=== PATIENT | male | born 1960 ===

== ENCOUNTER 2021-04-27 11:05 | Emergency (ER) | payer MEDICARE ==
--- NOTE | 2021-04-27 12:17 | Emergency Department Report ---
ED Shortness of Breath HPI - General Chief Complaint: Dyspnea/Respdistress Stated Complaint: SOB Time Seen by Provider: 04/27/21 11:36 Source: patient Mode of arrival: Ambulatory Limitations: Physical Limitation - History of Present Illness Initial Comments: 60 year old male with pmhx of CHF, Afib, Renal disease, CVA, CAD with stents, HTN, mild asthma and sleep apnea presents to ED with complaints of SOB. He states he has this SOB for "a while" but it was worse today. He is not on home O2. He states the SOB is he is at rest or on exertion. Nothing seems to make it worse or better. He reports "a little" cough and wheezing. He does not have albuterol MDI nor nebulizer at home. He denies any chest pain, abd pain, n/v, LE swelling or pain. He denies any fever or chills. He states he has been compliant with his lasix. He denies tobacco use. He denies hx PE/DVT or risk factors for PE or DVT. 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 He states that he currently does not have a PCP. MD Complaint: shortness of breath -: month(s) ED Review of Systems ROS: Stated complaint: SOB Other details as noted in HPI Comment: All other systems reviewed and negative Constitutional: denies: chills, fever Eyes: denies: eye pain, eye discharge, vision change ENT: denies: ear pain, throat pain, dental pain, hearing loss, epistaxis, congestion Respiratory: cough, shortness of breath, SOB with exertion, SOB at rest, wheezing Cardiovascular: denies: chest pain, palpitations, dyspnea on exertion Endocrine: no symptoms reported Gastrointestinal: denies: abdominal pain, nausea, diarrhea, constipation, hematemesis Genitourinary: denies: urgency, dysuria, frequency, hematuria, discharge, testicular pain, testicular mass Musculoskeletal: denies: back pain, joint swelling, arthralgia Skin: denies: rash, lesions, pruritus Neurological: denies: headache, weakness, numbness, paresthesias, confusion, abnormal gait, vertigo Psychiatric: denies: anxiety, depression, auditory hallucinations, visual hallucinations, homicidal thoughts, suicidal thoughts Hematological/Lymphatic: denies: easy bleeding, easy bruising, swollen glands ED Past Medical Hx - Social History Smoking Status: Never Smoker ED Physical Exam - General Limitations: Physical Limitation General appearance: alert, in no apparent distress - Head Head exam: Present: atraumatic, normocephalic, normal inspection - Eye Eye exam: Present: normal appearance, PERRL, EOMI Pupils: Present: normal accommodation - Neck Neck exam: Present: normal inspection. Absent: meningismus - Respiratory Respiratory exam: Present: normal lung sounds bilaterally. Absent: respiratory distress, wheezes, rales, rhonchi - Cardiovascular Cardiovascular Exam: Present: regular rate, normal rhythm, normal heart sounds - GI/Abdominal GI/Abdominal exam: Present: soft. Absent: distended, tenderness, guarding, rebound - Extremities Exam Extremities exam: Present: normal inspection, full ROM. Absent: tenderness, pedal edema, calf tenderness - Neurological Exam Neurological exam: Present: alert, oriented X3, CN II-XII intact, normal gait - Psychiatric Psychiatric exam: Present: normal affect, normal mood - Skin Skin exam: Present: intact ED Course Vital Signs 04/27/21 04/27/21 11:42 17:23 Temperature 97.9 F Pulse Rate 78 80 Respiratory 18 16 Rate Blood Pressure 168/99 Blood Pressure 168/97 [Right] O2 Sat by Pulse 98 98 Oximetry ED Medical Decision Making - Lab Data Result diagrams: 04/27/21 12:55 04/27/21 12:55 - EKG Data Rate: normal (72) No standard instances Rhythm: A.Fib - EKG Data Interpretation: nonspecific ST-T wave tonja - Radiology Data Radiology results: report reviewed Patient Name: LAURA SOTO Gender: Male Date of : 1960 Referring Provider: RAFAELA SAINI Organization: [facility] Accession Number: [id number] Requested Date: April 27, 2021 12:12 Report Status: Final Requested Procedure: 1 Procedure Description: XR chest routine 2V Modality: XR Findings Reporting MD: Saravanan Royal Dictation Time: April 27, 2021 11:38 Willow Worker: Not available Bowl Attendant Date: CHEST 2 VIEWS INDICATION: Dyspnea. COMPARISON: none FINDINGS: Support devices: None. Heart: Within normal limits. Lungs/pleura: No acute air space or interstitial disease. No pneumothorax. Additional findings: None. IMPRESSION: No acute findings. Signer Name: Saravanan Royal Jr, MD Signed: 04/27/2021 11:38 AM Workstation Name: [id number] - Medical Decision Making 60 year old male with pmhx of CHF, Afib, Renal disease, CVA, CAD with stents, HTN, mild asthma and sleep apnea presents to ED with complaints of SOB. He states he has this SOB for "a while" but it was worse today. He is not on home O2. He states the SOB is he is at rest or on exertion. Nothing seems to make it worse or better. He reports "a little" cough and wheezing. He does not have albuterol MDI nor nebulizer at home. He denies any chest pain, abd pain, n/v, LE swelling or pain. He denies any fever or chills. He states he has been compliant with his lasix. He denies tobacco use. He denies hx PE/DVT or risk factors for PE or DVT. 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 He states that he currently does not have a PCP. All labs reviewed--CBC unremarkable. CMP shows renal insufficiency with a creatinine of 4.5 and a BUN of 48, otherwise unremarkable. Troponin was normal. BNP 1073; EKG showed nonspecific T wave changes but No STEMI or significant dysrhythmias. His chest x-ray shows nothing acute. Patient currently resting comfortably. He is not in any respiratory distress. He has been observed talking on the phone in full sentences, and ambulating to the bathroom without difficulty. He is not toxic or ill-appearing. Changes on patient lab work likely chronic, his work-up today does not suggest acute CHF especially since his chest x-ray does not show volume overload or pleural effusion and he has no swelling on exam. Patient was ambulated in the ER and his O2 dropped to 94% but was maintained at 94% with a heart rate of 83. He did not express shortness of breath or appear to be short of breath while ambulating. His repeat vital signs are stable. Also do not suspect that this is related to PE as he has a PERC score of 0, unstable angina, dissection, or any other acute emergencies warranting admission at this time or any additional testing at this time. Case was discussed with Dr. Espino, he agrees with work-up, and agree that there is no indication for any additional testing or admission to the hospital at this time. On discharge patient admits that he has been taking his Lasix 80 mg because it made him urinate a lot and therefore encouraged that he restarts taking the Lasix. He will be given referral information to local PCP as he reported not have a PCP. Patient expressed understanding agree with plan. He understands to return to the ER if symptoms worsens in any way. 04/28/2021: Patient was discharged prior to UA results due to lab reporting equipment failure and results taking few hours. Reviewed UA, results concerning UTI, culture pending. Tried to call patient few times without success. Also called sister who was listed on his demographics that emergent contact without success. Will monitor urine culture and if positive try again to contact patient. Critical care attestation.: If time is entered above; I have spent that time in minutes in the direct care of this critically ill patient, excluding procedure time. ED Disposition Clinical Impression: Dyspnea, Chronic renal disease, CHF (congestive heart failure) Disposition: 01 HOME / SELF CARE / HOMELESS Is pt being admited?: No Does the pt Need Aspirin: No Condition: Stable Instructions: Shortness of Breath, Adult, [id number], Heart Failure, Self Care, Chronic Kidney Disease, Adult, [id number] Additional Instructions: Recommend that you continue your regular dose of your water pill daily. Continue wearing his CPAP at night. Follow-up with the primary care doctor listed on your discharge instructions. Return to the ER if your symptoms ch anges or worsens in any way. Referrals: MICHAEL CHUN MD [Staff Physician] - 3-5 Days Time of Disposition: 17:04
[2021-04-27 13:11] LABS: Basophils # (Auto) 0.1 K/mm3 (0.0-0.1); Eosinophils # (Auto) 0.2 K/mm3 (0.0-0.4); Eosinophils % (Auto) 2.2 % (0.0-4.3); Hematocrit 37.3 % (35.5-45.6); Hemoglobin 12.1 gm/dl (11.8-15.2); Lymphocytes # (Auto) 1.4 K/mm3 (1.2-5.4); Lymphocytes % (Auto) 18.7 % (13.4-35.0); Mean Corpuscular HGB Conc 32 % (32-34); Mean Corpuscular Volume 93 fl (84-94); Monocytes # (Auto) 0.7 K/mm3 (0.0-0.8); Monocytes % (Auto) 9.7 % (0.0-7.3); Platelet Count 193 K/mm3 (140-440); Red Blood Count 4.03 M/mm3 (3.65-5.03); Red Cell Distribution Width 17.5 % (13.2-15.2)
[2021-04-27 14:34] LABS: Albumin 3.8 g/dL (3.9-5); Calcium 8.1 mg/dL (8.4-10.2)
[2021-04-27 16:55] LABS: Color,Urine Yellow (Yellow)
[2021-04-27 16:56] LABS: Blood,Urine Negative (Negative); Protein,Urine >500 mg/dL (Negative)
[2021-04-27 17:01] LABS: Bacteria,Urine 1+ /HPF (Negative); Mucus,Urine FEW /HPF; RBC,Urine < 1.0 /HPF (0.0-6.0)
[2021-04-27 17:39] VITALS: BP 168/97
--- NOTE | 2021-04-27 23:52 | XRay Report ---
CHEST 2 VIEWS INDICATION: Dyspnea. COMPARISON: none FINDINGS: Support devices: None. Heart: Within normal limits. Lungs/pleura: No acute air space or interstitial disease. No pneumothorax. Additional findings: None. IMPRESSION: No acute findings. Signer Name: Saravanan Royal Jr, MD Signed: 04/27/2021 12:38 PM Workstation Name: [id number]
--- NOTE | 2021-04-28 14:03 | Electrocardiograph Report ---
[facility] Test Date: 2021-04-27 Test Time: 12:47:37 Pat Name: LAURA SOTO Department: Room: Gender: M [id number] Programmer: LISSET : 1960 Requested By: RAFAELA SAINI Order Number: [id number] Reading MD: Philipp Street Measurements Intervals [place] Rate: 72 P: [place]: QRS: 12 QRSD: 102 T: 224 QT: 422 QTc: 462 Interpretive Statements Atrial fibrillation Nonspecific T abnormalities, lateral leads No previous ECG available for comparison Electronically Signed On 04-28-2021 14:03:[address]
== END 2021-04-27 17:41 | disposition home or self-care (01) ==
LOC: ED 11:05
DX: R06.00 Dyspnea, unspecified (principal); N18.9 Chronic kidney disease, unspecified; I50.9 Heart failure, unspecified; I13.0 Hypertensive heart and chronic kidney disease with heart failure and stage 1 through stage 4 chronic kidney disease, or unspecified chronic kidney disease; Z86.73 Personal history of transient ischemic attack (TIA), and cerebral infarction without residual deficits; I25.10 Atherosclerotic heart disease of native coronary artery without angina pectoris; Z79.899 Other long term (current) drug therapy
CPT/HCPCS: 36415; 71046; 80053; 81001; 83735; 83880; 84484; 85025; 87086; 93005; 93010; 99284

== ENCOUNTER 2021-08-18 11:12 | Inpatient (IN) | payer MEDICARE, OTHER ==
[2021-08-18] MEDS ORDERED: ASPIRIN 325 MG TAB PO ONE (11:26)
--- NOTE | 2021-08-18 12:13 | XRay Report ---
CHEST 2 VIEWS INDICATION: SOB. COMPARISON: 04/27/2021 FINDINGS: Support devices: None. Heart: Stable. Lungs/Pleura: No acute air space or interstitial disease. No significant pleural effusion. IMPRESSION: No acute findings. Signer Name: Trevon Rubio MD Signed: 08/18/2021 12:09 PM Workstation Name: [id number]
[2021-08-18 12:21] LABS: Hematocrit 36.7 % (35.5-45.6); Hemoglobin 12.6 gm/dl (11.8-15.2); Mean Corpuscular HGB Conc 34 % (32-34); Mean Corpuscular Volume 95 fl (84-94); Platelet Count 202 K/mm3 (140-440); Red Blood Count 3.85 M/mm3 (3.65-5.03); Red Cell Distribution Width 15.1 % (13.2-15.2)
--- NOTE | 2021-08-18 12:37 | Electrocardiograph Report ---
[facility] Test Date: 2021-08-18 Test Time: 11:41:24 Pat Name: LAURA SOTO Department: Room: Gender: M Weigh Boss: FUNMILAYO : 1960 Requested By: ED DOC Order Number: [id number] Reading MD: Philipp Street Measurements Intervals [place] Rate: 87 P: [place]: QRS: 5 QRSD: 102 T: 124 QT: 379 QTc: 457 Interpretive Statements Atrial fibrillation Occasional ventricular ectopy Nonspecific T abnrm, anterolateral leads Compared to ECG 04/27/2021 12:47:37 Occasional ventricular ectopy is now evident Electronically Signed On 08-18-2021 12:37:[address]
[2021-08-18 12:39] LABS: Basophils # (Auto) 0.3 K/mm3 (0.0-0.1); Eosinophils # (Auto) 0.2 K/mm3 (0.0-0.4); Eosinophils % (Auto) 2.4 % (0.0-4.3); Monocytes # (Auto) 0.7 K/mm3 (0.0-0.8); Monocytes % (Auto) 9.6 % (0.0-7.3)
[2021-08-18 12:45] LABS: Eosinophils % (Manual) 2 % (0.0-4.3); Monocytes % (Manual) 12 % (0.0-7.3); Platelet Estimate Consistent w Auto; RBC Morphology Normal
[2021-08-18 12:49] LABS: Calcium 8.7 mg/dL (8.4-10.2)
--- NOTE | 2021-08-19 02:53 | Emergency Department Report ---
ED Shortness of Breath HPI - General Chief Complaint: Dyspnea/Respdistress Stated Complaint: SOB/SWOLLEN LEGS Time Seen by Provider: 08/19/21 01:58 Source: patient Mode of arrival: Ambulatory Limitations: No Limitations - History of Present Illness Initial Comments: 60 yo Morbidly Obese M with h/o CHF, chronic kidney injury, bilateral lower leg edema who now presents with increase in leg swelling and shortness of breath has been going on for the last 2 weeks progressively getting worse. Patient denies any trauma or fall. Patient also reports some increase in urination. No fever or chills reported. No other modifying or positive factors reported. MD Complaint: shortness of breath - Related Data Allergies Allergy/AdvReac Type Severity Reaction Status Date / Time lisinopril Allergy Unknown Verified 08/18/21 11:23 ED Review of Systems ROS: Stated complaint: SOB/SWOLLEN LEGS Other details as noted in HPI Comment: All other systems reviewed and negative Respiratory: shortness of breath, SOB with exertion, SOB at rest. denies: wheezing ED Past Medical Hx - Past Medical History Hx Congestive Heart Failure: Yes Additional medical history: kidney failure - Surgical History Past Surgical History?: No Additional Surgical History: cardiac stents - Social History Smoking Status: Never Smoker ED Physical Exam - General Limitations: No Limitations General appearance: alert, in no apparent distress - Head Head exam: Present: normal inspection - Eye Eye exam: Present: normal appearance Pupils: Present: normal accommodation - ENT ENT exam: Present: normal exam, normal orophraynx, mucous membranes moist - Neck Neck exam: Present: normal inspection, full ROM. Absent: tenderness - Respiratory Respiratory exam: Present: normal lung sounds bilaterally. Absent: respiratory distress, accessory muscle use - Cardiovascular Cardiovascular Exam: Present: regular rate, normal rhythm, normal heart sounds - GI/Abdominal GI/Abdominal exam: Present: soft, normal bowel sounds. Absent: distended, tende rness - Extremities Exam Extremities exam: Present: pedal edema (+3 pitting edema bilaterally). Absent: tenderness - Back Exam Back exam: Present: normal inspection. Absent: tenderness - Neurological Exam Neurological exam: Present: alert, oriented X3 - Psychiatric Psychiatric exam: Present: normal affect, normal mood - Skin Skin exam: Present: warm, normal color ED Course Vital Signs 08/18/21 08/19/21 11:23 03:26 Temperature 97.9 F Pulse Rate 90 Respiratory 20 Rate Blood Pressure 157/94 O2 Sat by Pulse 98 99 Oximetry - Reevaluation(s) Reevaluation #1: 08/19/21 02:51 Here with shortness of breath associated with bilateral increased leg edema--among differential diagnosis could be but not limited to acute exacerbation of CHF, myocardiac infarction, pulmonary embolism, acute exacer bation of asthma, pneumothorax, pneumonia or Viral or Bacterial Upper/Lower respiratory tract infection or other systemic infection.--To rule out the above will go ahead and order EKG, cardiac enzyme including troponin, BNP, CKMB, chest x-ray, CBC, CMP, UA and or D-dimer. In the meantime we will go ahead and treat with lasix 40 mg IV x 1 considering this to be likely acute exacerbation of CHF-- Reevaluation #2: 08/19/21 02:59 Patient noted with new atrial fibrillation at the rate of 87 bpm on the EKG with no history--coupled with BMP of 2022 with elevated BUN and creatinine at 45/4.7 --this is likely the cause of his shortness of breath--we will go ahead and give 40 of Lasix to get some extra fluid off his lower legs-- will consider admitting this patient for further diuretics and the opportunity to get a new echocardiogram of his heart-- 08/19/21 03:03 - Consultations Consultation #1: 08/19/21 03:02 Dr Denise consulted ED Medical Decision Making - Lab Data Result diagrams: 08/18/21 11:45 08/18/21 11:45 - EKG Data -: EKG Interpreted by Me - EKG Data 08/19/21 02:54 EKG noted with atrial fibrillation at a rate of 87 bpm with nonspecific T wave abnormality and this abnormal ECG. Critical care attestation.: If time is entered above; I have spent that time in minutes in the direct care of this critically ill patient, excluding procedure time. ED Disposition Clinical Impression: Dyspnea Qualifiers: Dyspnea type: dyspnea on exertion Qualified Code(s): R06.00 - Dyspnea, unspecified A-fib Qualifiers: Atrial fibrillation type: unspecified Qualified Code(s): I48.91 - Unspecified a trial fibrillation Acute exacerbation of CHF (congestive heart failure) Qualifiers: Heart failure type: unspecified Qualified Code(s): I50.9 - Heart failure, unspecified Disposition: 09 ADMITTED INPATIENT Is pt being admited?: No Does the pt Need Aspirin: No Condition: Stable Time of Disposition: 05:04
[2021-08-19] MEDS ORDERED: FUROSEMIDE 40 MG/4 ML INJ IV ONE (02:59)
[2021-08-19] MEDS ORDERED: ASPIRIN 325 MG TAB PO ONE (03:30)
[2021-08-19] MEDS ORDERED: MORPHINE 2 MG/1 ML INJ IV PRN ×2 (04:31→04:39)
[2021-08-19] MEDS ORDERED: ACETAMINOPHEN 325 MG TAB PO PRN (04:31)
[2021-08-19] MEDS ORDERED: ONDANSETRON 4 MG/2 ML INJ IV PRN ×2 (04:31→04:39)
[2021-08-19] MEDS ORDERED: MORPHINE 4 MG/1 ML INJ IV PRN (04:39)
--- NOTE | 2021-08-19 04:49 | History and Physical Report ---
History of Present Illness Date of examination: 08/19/21 Date of admission: 08/19/2021 Chief complaint: Shortness of breath Lower extremity swelling History of present illness: 60-year-old -[place] male with known history of CHF, chronic kidney disease presenting to the emergency room today complaining of progressive swelling of his lower extremities and shortness of breath which has been ongoing for the past 2 weeks. Shortness of breath is worse on exertion. He states he has not followed up with any primary care physician in a while. Patient denies any chest pain, no nausea or vomiting, no fever or chills, no headache or dizziness, no diaphoresis. Work-up in the emergency room today EKG shows atrial fibrillation, chest x-ray was unremarkable. Labs reveals elevated BNP of 2022, potassium 3.3. BUN of 47 and creatinine of 4.7 Patient is being admitted for CHF exacerbation Past History Past Medical History: CAD, heart failure, renal failure Past Surgical History: PTCA Social history: no significant social history Family history: no significant family history Medications and Allergies Allergies Allergy/AdvReac Type Severity Reaction Status Date / Time lisinopril Allergy Unknown Verified 08/18/21 11:23 Active Meds: Active Medications Acetaminophen (Acetaminophen 325 Mg Tab) 650 mg PO Q4H PRN PRN Reason: Pain MILD(1-3)/Fever >100.5/DE LA PAZ Furosemide (Furosemide 40 Mg/4 Ml Inj) 40 mg IV BID@0600,1800 ISHMAEL Morphine Sulfate (Morphine 2 Mg/1 Ml Inj) 2 mg IV Q4H PRN PRN Reason: Pain, Moderate (4-6) Morphine Sulfate (Morphine 4 Mg/1 Ml Inj) 4 mg IV Q4H PRN PRN Reason: Pain , Severe (7-10) Ondansetron HCl (Ondansetron 4 Mg/2 Ml Inj) 4 mg IV Q8H PRN PRN Reason: Nausea And Vomiting Sodium Chloride (Sodium Chloride 0.9% 10 Ml Flush Syringe) 10 ml IV BID ISHMAEL Sodium Chloride (Sodium Chloride 0.9% 10 Ml Flush Syringe) 10 ml IV PRN PRN PRN Reason: LINE FLUSH Review of Systems Constitutional: no fever, no chills Ears, nose, mouth and throat: no nasal congestion, no sore throat Cardiovascular: edema, no chest pain, no orthopnea, no palpitations Respiratory: shortness of breath, no cough Gastrointestinal: no abdominal pain, no nausea, no vomiting, no diarrhea Genitourinary Male: no dysuria, no hematuria, no nocturia Musculoskeletal: no neck pain, no low back pain Integumentary: no rash, no pruritis Neurological: no headaches, no confusion Psychiatric: no anxiety, no depression Endocrine: no polyphagia, no polydipsia, no polyuria Exam - Constitutional Vitals: Temp Pulse Resp BP Pulse Ox 97.9 F 90 20 157/94 99 08/18/21 11:23 08/18/21 11:23 08/18/21 11:23 08/18/21 11:23 08/19/21 03:26 General appearance: Present: no acute distress, well-nourished, obese - EENT Eyes: Present: PERRL, EOM intact. Absent: scleral icterus ENT: hearing intact, clear oral mucosa, dentition normal - Neck Neck: Present: supple, normal ROM - Respiratory Respiratory effort: normal Respiratory: bilateral: CTA - Cardiovascular Rhythm: regular Heart Sounds: Present: S1 & S2. Absent: systolic murmur, diastolic murmur - Extremities Extremities: no ischemia, pulses intact, normal temperature, normal color, Full ROM Extremity abnormal: edema (3+ bilateral lower extremity edema) Peripheral Pulses: within normal limits - Abdominal General gastrointestinal: Present: soft, non-tender, non-distended, normal bowel sounds, other (Obese). Absent: mass - Integumentary Integumentary: Present: clear, warm, dry. Absent: rash - Musculoskeletal Musculoskeletal: strength equal bilaterally - Psychiatric Psychiatric: appropriate mood/affect, intact judgment & insight, memory intact, cooperative - Neurologic Neurologic: CNII-XII intact, no focal deficits, moves all extremities HEART Score - HEART Score Troponin: Troponin T 0.022 ng/mL (0.00-0.029) 08/18/21 17:25 Results - Labs CBC & Chem 7: 08/18/21 11:45 08/18/21 11:45 Labs: Abnormal lab results 08/18/21 08/18/21 Range/Units 11:45 11:45 MCV 95 H (84-94) fl MCH 33 H (28-32) pg Burke % (Auto) 9.6 H (0.0-7.3) % Baso # (Auto) 0.3 H (0.0-0.1) K/mm3 Seg Neuts % (Manual) 73 H (40.0-70.0) % Lymphocytes % (Manual) 13 L (13.4-35.0) % Monocytes % (Manual) 12 H (0.0-7.3) % Lymphocytes # (Manual) 0.9 L (1.2-5.4) K/mm3 Monocytes # (Manual) 0.9 H (0.0-0.8) K/mm3 Potassium 3.3 L (3.6-5.0) mmol/L BUN 45 H (9-20) mg/dL Creatinine 4.7 H (0.8-1.3) mg/dL Glucose 104 H (75-100) mg/dL NT-Pro-B Natriuret Pep 2023 H (0-900) pg/mL Assessment and Plan Assessment: 1. CHF exacerbation 2. Atrial fibrillation-possibly new onset 3. Chronic kidney disease 4. Hypokalemia Plan: 1. Patient admitted and placed on diuretics 2. We will schedule for echocardiogram. 3. Will monitor inputs and outputs and also monitor daily weight. 4. Consult placed to cardiology for further evaluation and recommendations. 5. We will request nephrology evaluation and recommendations for his chronic kidney disease. 6. We will resume routine home medications. 7. Potassium will be repleted DVT prophylaxis: Subcutaneous heparin CODE STATUS: Full code
[2021-08-19] MEDS ORDERED: POTASSIUM CHLORIDE 10 MEQ 10 MEQ/100 ML BAG IV ONE (05:03)
--- NOTE | 2021-08-19 08:00 | Consultation ---
History of Present Illness - Reason for Consult Consult date: 08/19/21 acute renal failure, chronic renal failure - History of Present Illness The patient is a 60 Yo AAM with history notable for HTN, CAD, CHF and CKD who presented to [facility] ED with complaint of progressive swelling of his lower extremities and shortness of breath for the past 2 weeks. Patient is a poor historian. Shortness of breath is worse on exertion. He hasn't ollowed up with any primary care physician in a while. Patient denies any chest pain, N, V, D, abd pain, fever, chills, headache, dizziness, diaphoresis, dsyuria or hematuria. EKG showed Atrial fibrillation. Chest x-ray was unremarkable. Labs notable for BUN of 47 and creatinine of 4.7. Patient was admitted for CHF exacerbation. Nephrology consulted for further evaluation and treatment of CHRISTIANO. Past History Past Medical History: CAD, heart failure, hypertension, hyperlipidemia, renal failure Past Surgical History: PTCA Social history: no significant social history Family history: no significant family history Medications and Allergies Allergies Allergy/AdvReac Type Severity Reaction Status Date / Time lisinopril Allergy Coughing Verified 08/20/21 07:52 Home Medications Medication Instructions Recorded Confirmed Last Taken Type Amlodipine Besylate [Norvasc] 5 mg PO QDAY 08/20/21 08/20/21 Unknown History AtorvaSTATin [Lipitor] 40 mg PO QHS 08/20/21 08/20/21 Unknown History Doxazosin Mesylate [Cardura] 2 mg PO DAILY 08/20/21 08/20/21 Unknown History Furosemide [Lasix TAB] 80 mg PO QDAY 08/20/21 08/20/21 Unknown History ISOSORBIDE MONOnitrate [Imdur ER] 60 mg PO QDAY 08/20/21 08/20/21 Unknown History Rivaroxaban [Xarelto] 20 mg PO QDAY 08/20/21 08/20/21 Unknown History Sertraline [Zoloft] 50 mg PO QDAY 08/20/21 08/20/21 Unknown History Torsemide [Demadex] 20 mg PO QDAY 08/20/21 08/20/21 Unknown History allopurinoL [Zyloprim] 100 mg PO QDAY 08/20/21 08/20/21 Unknown History carvediloL [Coreg] 25 mg PO QDAY 08/20/21 08/20/21 Unknown History cloNIDine HCL [Clonidine HCl] 0.3 mg PO QDAY 08/20/21 08/20/21 Unknown History glipiZIDE [Glipizide ER] 2.5 mg PO QDAY 08/20/21 08/20/21 Unknown History Active Meds: Active Medications Acetaminophen (Acetaminophen 325 Mg Tab) 650 mg PO Q4H PRN PRN Reason: Pain MILD(1-3)/Fever >100.5/DE LA PAZ Furosemide (Furosemide 40 Mg/4 Ml Inj) 40 mg IV BID@0600,1800 ISHMAEL Morphine Sulfate (Morphine 2 Mg/1 Ml Inj) 2 mg IV Q4H PRN PRN Reason: Pain, Moderate (4-6) Morphine Sulfate (Morphine 4 Mg/1 Ml Inj) 4 mg IV Q4H PRN PRN Reason: Pain , Severe (7-10) Ondansetron HCl (Ondansetron 4 Mg/2 Ml Inj) 4 mg IV Q8H PRN PRN Reason: Nausea And Vomiting Sodium Chloride (Sodium Chloride 0.9% 10 Ml Flush Syringe) 10 ml IV BID ISHMAEL Sodium Chloride (Sodium Chloride 0.9% 10 Ml Flush Syringe) 10 ml IV PRN PRN PRN Reason: LINE FLUSH Review of Systems All systems: negative Exam - Vital Signs Vital signs: Vital Signs Temp Pulse Resp BP Pulse Ox 97.9 F 90 20 157/94 98 08/18/21 11:23 08/18/21 11:23 08/18/21 11:23 08/18/21 11:23 08/18/21 11:23 Results - Lab Results 08/20/21 12:39 08/20/21 12:39 Most recent lab results Calcium 8.7 mg/dL (8.4-10.2) 08/18/21 11:45 Assessment and Plan 1. Acute kidney injury: Vasomotor CHRISTIANO superimposed on CKD. Baseline renal function is unknown, likely advanced CKD. Urine studies and Renal US ordered. Monitor renal function. Creatinine level remains high. Renal prognosis is guarded. Avoid nephrotoxic agents. Meds dosage based on GFR. 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 2. FEN: Hypokalemia, replete K, monitor. Volume overload, diuretcis, monitor. Monitor lytes and volume status. 3. A.fib: Monitor. Followed by Cards. 4. CHF: Follow echo. Diuretics. Per protocol. Followed by Cards. 5. CAD. 6. Hypertension, uncontrolled: Adjust meds as needed. Volume control. 7. Morbid obesity with sleep apnea 8. Medical non-compliance: Counseled. Subjective: Patient was seen and examined at the bedside. Examination: General appearance: well-developed, obese, appears stated age, no distress HEENT: ATNC, pupils equal, no icterus Neck: trachea midline Respiratory: Clear to Auscultation Cardiology: irregular, S1S2, no murmur Gastrointestinal: soft, normoactive bowel sounds, not tender Integumentary: no rash Neurologic: AO, able to move extremities Ext: L LE 2+ and R LE 1+ edema noted
[2021-08-19] MEDS: FUROSEMIDE 40 MG/4 ML INJ IV SCH ×2 (09:23→18:19)
--- NOTE | 2021-08-19 13:34 | Consultation ---
History of Present Illness Consult date: 08/19/21 Consult reason: shortness of breath, other (Edema) History of present illness: The patient is a 60-year-old man with multiple comorbidities, who appears to be a very poor historian. He has a history of congestive heart failure, atrial fibrillation, coronary artery disease and COPD. He admits to noncompliance with medical therapy and with physician follow-ups for his multiple comorbidities. With regards to his coronary artery disease, he reports that he had coronary stents implanted at a hospital in [place] about a year and a half ago. He is noncompliant with prescribed guideline directed medical therapy. His atrial fibrillation appears likely chronic, he is in atrial fibrillation on this presentation and also on a previous ECG done in this hospital 4 months ago during a brief ER visit. He is not on oral anticoagulation therapy. He presents to the hospital at this time with shortness of breath, worsening bilateral lower extremity edema. He describes no chest pain, no palpitations, no syncope. ECG as reported showed atrial fibrillation with a well-controlled ventricular rate, no acute ST or T wave changes. I also reported that the atrial fibrillation is unchanged from a prior ECG tracing from 4 months ago du ring a brief ER visit. Chest x-ray revealed normal-sized cardiac silhouette and clear lungs. Pertinent laboratory findings include severe renal failure with a creatinine of 4.7. This end-stage renal failure is largely unchanged from 4.5 on his ER visit 4 months ago. The patient is uncertain about any previous nephrology work-up or follow-up. Past History Past Medical History: CAD, heart failure, renal failure Past Surgical History: PTCA Social history: no significant social history Family history: no significant family history Medications and Allergies Allergies Allergy/AdvReac Type Severity Reaction Status Date / Time lisinopril Allergy Unknown Verified 08/18/21 11:23 Active Meds: Active Medications Acetaminophen (Acetaminophen 325 Mg Tab) 650 mg PO Q4H PRN PRN Reason: Pain MILD(1-3)/Fever >100.5/DE LA PAZ Furosemide (Furosemide 40 Mg/4 Ml Inj) 40 mg IV BID@0600,1800 ISHMAEL Last Admin: 08/19/21 09:23 Dose: Not Given Morphine Sulfate (Morphine 2 Mg/1 Ml Inj) 2 mg IV Q4H PRN PRN Reason: Pain, Moderate (4-6) Morphine Sulfate (Morphine 4 Mg/1 Ml Inj) 4 mg IV Q4H PRN PRN Reason: Pain , Severe (7-10) Ondansetron HCl (Ondansetron 4 Mg/2 Ml Inj) 4 mg IV Q8H PRN PRN Reason: Nausea And Vomiting Sodium Chloride (Sodium Chloride 0.9% 10 Ml Flush Syringe) 10 ml IV BID ISHMAEL Sodium Chloride (Sodium Chloride 0.9% 10 Ml Flush Syringe) 10 ml IV PRN PRN PRN Reason: LINE FLUSH Review of Systems Cardiovascular: edema, shortness of breath, no chest pain, no orthopnea, no palpitations, no rapid/irregular heart beat, no syncope, no lightheadedness Physical Examination Vital Signs Temp Pulse Resp BP Pulse Ox 97.9 F 90 20 157/94 98 08/18/21 11:23 08/18/21 11:23 08/18/21 11:23 08/18/21 11:23 08/18/21 11:23 General appearance: no acute distress HEENT: Positive: PERRL Neck: Positive: neck supple Cardiac: Positive: irregularly irregular Neuro: Positive: Grossly Intact Abdomen: Positive: Soft Male genitourinary: Positive: deferred Skin: Positive: Clear Extremities: Present: +1 Edema Results 08/18/21 11:45 08/18/21 11:45 CBC 08/18/21 Range/Units 11:45 WBC 7.6 (4.5-11.0) K/mm3 RBC 3.85 (3.65-5.03) M/mm3 Hgb 12.6 (11.8-15.2) gm/dl Hct 36.7 (35.5-45.6) % Plt Count 202 (140-440) K/mm3 [place] # (Auto) 0.7 (0.0-0.8) K/mm3 Eos # (Auto) 0.2 (0.0-0.4) K/mm3 Baso # (Auto) 0.3 H (0.0-0.1) K/mm3 EKG interpretations - Telemetry EKG Rhythm: Atrial Fibrillation Assessment and Plan - Patient Problems (1) Edema Current Visit: Yes Status: Acute Plan to address problem: Patient presents with shortness of breath and lower extremity edema. Symptoms suggest fluid overload, which may be noncardiogenic in the setting of end-stage renal failure. We will order an echocardiogram for left ventricular function assessment. (2) Atrial fibrillation Current Visit: Yes Status: Acute Plan to address problem: Patient has atrial fibrillation which is likely chronic, was noted on a previous EKG 4 months ago. Rate control is optimal, but patient will benefit from long- term anticoagulation therapy. (3) Coronary artery disease Current Visit: Yes Status: Acute Plan to address problem: Patient reports a history of coronary artery disease with coronary stent placement a year and a half ago when he lived in [place]. He has no chest pain or symptoms of coronary ischemia at this time, we will resume guideline directed medical therapy and risk factor modification.
--- NOTE | 2021-08-19 15:26 | Event Note ---
Date: 08/19/21 Patient seen and examined This is the second visit after midnight 60-year-old -[place] male with known history of CHF, chronic kidney dise ase presenting to the emergency room complaining of progressive swelling of his lower extremities and shortness of breath which has been ongoing for the past 2 weeks. Work-up in the emergency room today EKG shows atrial fibrillation, chest x-ray was unremarkable. Labs reveals elevated BNP of 2023, potassium 3.3. BUN of 47 and creatinine of 4.7 Patient was admitted for CHF exacerbation, 2D echo showed EF of 45% Cardiology consulted, continue diuresis, follow cardiology recommendation
[2021-08-19] MEDS: hydrALAZINE 25 MG TAB PO SCH ×2 (15:53→21:30)
--- NOTE | 2021-08-19 17:59 | Ultrasound Report ---
ULTRASOUND RENAL INDICATION: Acute renal failure.. COMPARISON: No relevant prior imaging study available. FINDINGS: RIGHT KIDNEY: Size: 10.7 cm. Echogenicity: Increased. Cortical thickness: Normal. Stones: None. Hydronephrosis: None. Cyst or mass: There are a few cysts, the largest in the lateral cortex measures 1.9 cm in maximum izzy meter. LEFT KIDNEY: Size: 10.5 cm. Echogenicity: Increased. Cortical thickness: Normal. Stones: None. Hydronephrosis: None. Cyst or mass: There is a subcentimeter cyst at the lower pole. Urinary Bladder: No significant abnormality. Free Fluid: None. Additional Findings: None. IMPRESSION 1. No acute sonographic abnormality of the kidneys. Increased echogenicity within the cortex of both kidneys can be seen in the setting of medical renal disease. Signer Name: Juan Pablo Cardenas MD Signed: 08/19/2021 5:54 PM Workstation Name: [id number]
[2021-08-20] MEDS ORDERED: hydrALAZINE 20 MG/1 ML INJ IV ONE (03:08)
[2021-08-20] MEDS: FUROSEMIDE 40 MG/4 ML INJ IV SCH ×2 (06:16→19:00)
[2021-08-20] MEDS: hydrALAZINE 25 MG TAB PO SCH (06:17)
--- NOTE | 2021-08-20 08:14 | Progress Note ---
Assessment and Plan 1. Acute kidney injury vs advanced CKD: Doubt CHRISTIANO. Renal US negative for hydro. Urine studies ordered. Monitor renal function. Creatinine level remains high. Renal prognosis is guarded. Avoid nephrotoxic agents. Meds dosage based on GFR. Monitor for BOX [employer]E [employer]KER needs. 2. FEN: Hypokalemia, replete K, monitor. Volume overload, diuretcis, monitor. Monitor lytes and volume status. 3. A.fib: Monitor. Followed by Cards. 4. Decompnesated HFrEF: Echo, EF 45%. Diuretics. Per protocol. Followed by Cards. 5. CAD. 6. Hypertension, uncontrolled: Adjust meds as needed. Volume control. 7. Morbid obesity with sleep apnea 8. Medical non-compliance: Counseled. Subjective: Patient was seen and examined at the bedside. Doing ok. Examination: General appearance: well-developed, obese, appears stated age, no distress HEENT: ATNC, pupils equal, no icterus Neck: trachea midline Respiratory: Clear to Auscultation Cardiology: irregular, S1S2, no murmur Gastrointestinal: soft, normoactive bowel sounds, not tender Integumentary: no rash Neurologic: AO, able to move extremities Ext: 1+ LE edema noted Subjective Date of service: 08/20/21 Objective - Vital Signs Vital signs: Vital Signs - 12hr 08/19/21 08/19/21 08/20/21 21:14 23:35 03:01 Temperature 98.8 F 98.6 F Pulse Rate 83 100 H Respiratory 16 17 18 Rate Blood Pressure 151/85 188/112 [Right] O2 Sat by Pulse 99 96 Oximetry 08/20/21 06:15 Temperature 98.8 F Pulse Rate 107 H Respiratory 18 Rate Blood Pressure 189/111 [Right] O2 Sat by Pulse 98 Oximetry - Lab 08/20/21 12:39 08/20/21 12:39 Most recent lab results Calcium 8.0 mg/dL (8.4-10.2) L 08/20/21 05:21 Medications & Allergies - Medications Allergies/Adverse Reactions: Allergies lisinopril Allergy (Verified 08/20/21 07:52) Coughing Home Medications: Home Medications Medication Instructions Recorded Confirmed Last Taken Type Amlodipine Besylate [Norvasc] 5 mg PO QDAY 08/20/21 08/20/21 Unknown History AtorvaSTATin [Lipitor] 40 mg PO QHS 08/20/21 08/20/21 Unknown History Doxazosin Mesylate [Cardura] 2 mg PO DAILY 08/20/21 08/20/21 Unknown History Furosemide [Lasix TAB] 80 mg PO QDAY 08/20/21 08/20/21 Unknown History ISOSORBIDE MONOnitrate [Imdur ER] 60 mg PO QDAY 08/20/21 08/20/21 Unknown History Rivaroxaban [Xarelto] 20 mg PO QDAY 08/20/21 08/20/21 Unknown History Sertraline [Zoloft] 50 mg PO QDAY 08/20/21 08/20/21 Unknown History Torsemide [Demadex] 20 mg PO QDAY 08/20/21 08/20/21 Unknown History allopurinoL [Zyloprim] 100 mg PO QDAY 08/20/21 08/20/21 Unknown History carvediloL [Coreg] 25 mg PO QDAY 08/20/21 08/20/21 Unknown History cloNIDine HCL [Clonidine HCl] 0.3 mg PO QDAY 08/20/21 08/20/21 Unknown History glipiZIDE [Glipizide ER] 2.5 mg PO QDAY 08/20/21 08/20/21 Unknown History Active Medications: Generic Name Dose Route Start Last Admin Trade Name Freq PRN Reason Stop Dose Admin Acetaminophen 650 mg 08/19/21 04:39 Acetaminophen 325 Mg Tab PO Q4H PRN Pain MILD(1-3)/Fever >100.5/DE LA PAZ Furosemide 40 mg 08/19/21 06:00 08/20/21 06:16 Furosemide 40 Mg/4 Ml Inj IV 40 mg BID@0600,1800 ISHMAEL Administration Hydralazine HCl 50 mg 08/19/21 16:00 08/20/21 06:17 Hydralazine 25 Mg Tab PO 50 mg Q8HR ISHMAEL Administration Isosorbide Mononitrate 30 mg 08/19/21 16:00 08/19/21 15:53 Isosorbide Mononitrate Er 30 Mg Tab PO 30 mg QDAY ISHMAEL Administration Morphine Sulfate 2 mg 08/19/21 04:39 Morphine 2 Mg/1 Ml Inj IV Q4H PRN Pain, Moderate (4-6) Morphine Sulfate 4 mg 08/19/21 04:39 Morphine 4 Mg/1 Ml Inj IV Q4H PRN Pain , Severe (7-10) Ondansetron HCl 4 mg 08/19/21 04:39 Ondansetron 4 Mg/2 Ml Inj IV Q8H PRN Nausea And Vomiting Sodium Chloride 10 ml 08/19/21 10:00 08/19/21 21:31 Sodium Chloride 0.9% 10 Ml Flush Syringe IV 10 ml BID ISHMAEL Administration Sodium Chloride 10 ml 08/19/21 04:39 Sodium Chloride 0.9% 10 Ml Flush Syringe IV PRN PRN LINE FLUSH
[2021-08-20] MEDS ORDERED: hydrALAZINE 25 MG TAB PO SCH (09:00)
[2021-08-20] MEDS: ACETAMINOPHEN 325 MG TAB PO PRN (09:33)
[2021-08-20] MEDS: hydrALAZINE 100 MG TAB PO SCH ×3 (09:34→21:59)
--- NOTE | 2021-08-20 11:49 | Progress Note ---
Assessment and Plan - Patient Problems (1) Edema Current Visit: Yes Status: Acute Plan to address problem: Patient presents with shortness of breath and lower extremity edema. Symptoms suggest fluid overload, which may be noncardiogenic in the setting of end-stage renal failure. His creatinine is severely elevated 4.5-4.7. He may ultimately need renal replacement therapy for fluid and electrolyte management. Echocardiogram shows left ventricular systolic function is relatively well- preserved with ejection fraction only mildly impaired at 45%. (2) Atrial fibrillation Current Visit: Yes Status: Acute Plan to address problem: Patient has atrial fibrillation which is likely chronic, was noted on a previous EKG 4 months ago. Rate control is optimal, but patient will benefit from long- term anticoagulation therapy. We will start low-dose Eliquis added to oral antiplatelets for his coronary artery disease. (3) Coronary artery disease Current Visit: Yes Status: Acute Plan to address problem: Patient reports a history of coronary artery disease with coronary stent placement a year and a half ago when he lived in [place]. He has no chest pain or symptoms of coronary ischemia at this time, we will resume guideline directed medical therapy and risk factor modification. (4) Uncontrolled hypertension Current Visit: Yes Status: Acute Plan to address problem: Systolic blood pressure is currently 180s, despite high-dose hydralazine. I will add Procardia XL 60 mg twice daily. Subjective Date of service: 08/20/21 Principal diagnosis: Fluid overload, end-stage renal failure, chronic atrial fibrillation Interval history: The patient is comfortable, no acute respiratory distress, no new cardiac events reported. Echocardiogram shows a dilated left atrium, and only mild left ventricular systolic dysfunction, ejection fraction 45%. Objective Vital Signs Temp Pulse Resp BP BP Pulse Ox 08/20/21 09:33 20 08/20/21 08:10 98.4 F 110 H 18 166/91 95 08/20/21 06:15 98.8 F 107 H 18 189/111 98 08/20/21 03:01 98.6 F 100 H 18 188/112 96 08/19/21 23:35 17 99 08/19/21 21:14 98.8 F 83 16 151/85 08/19/21 19:06 98 08/19/21 16:12 178/119 08/19/21 16:03 83 18 190/105 91 08/19/21 12:23 98.1 F 82 18 153/111 95 06/08/22 11:59 98.1 F 82 18 153/111 95 - Physical Examination General: No Apparent Distress HEENT: Positive: PERRL Neck: Positive: neck supple Cardiac: Positive: irregularly irregular Lungs: Positive: Decreased Breath Sounds Neuro: Positive: Grossly Intact Abdomen: Positive: Soft Skin: Positive: Clear Extremities: Present: +1 Edema - Labs and Meds Comprehensive Metabolic Panel 08/20/21 Range/Units 05:21 Sodium 144 (137-145) mmol/L Potassium 3.1 L (3.6-5.0) mmol/L Chloride 104.7 (98-107) mmol/L Carbon Dioxide 26 (22-30) mmol/L BUN 38 H (9-20) mg/dL Creatinine 4.3 H (0.8-1.3) mg/dL Glucose 123 H (75-100) mg/dL Calcium 8.0 L (8.4-10.2) mg/dL
[2021-08-20] MEDS ORDERED: carvediloL 3.125 MG TAB PO SCH (12:00)
--- NOTE | 2021-08-20 12:09 | Electrocardiograph Report ---
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
--- NOTE | 2021-08-20 13:24 | Progress Note ---
Assessment and Plan 60-year-old -[place] male with known history of CHF, chronic kidney disease presenting to the emergency room complaining of progressive swelling of his lower extremities and shortness of breath which has been ongoing for the past 2 weeks. Work-up in the emergency room today EKG shows atrial fibrillation, chest x-ray was unremarkable. Labs reveals elevated BNP of 2023, potassium 3.3. BUN of 47 and creatinine of 4.7 Patient was admitted for CHF exacerbation Assessment Acute systolic CHF exacerbation EF 40-45% Atrial fibrillation-possibly chronic CHRISTIANO on Chronic kidney disease, vasomotor nephropathy Hypokalemia Morbid obesity with sleep apnea Hypertension, uncontrolled Plan: 08/19 Patient was admitted for CHF exacerbation, 2D echo showed EF of 45% Cardiology consulted, continue diuresis, follow cardiology recommendation 08/20 -- Continue diuretics, replete electrolytes as needed -- Renal function slightly improved today, continue to follow BMP -- BP still remains uncontrolled and SBP at 180s -we will continue to adjust medications, will avoid nephrotoxins -- Continue to follow clinically follow nephrology and cardiology recommendation -- Patient placed on anticoagulation with Eliquis -- Continue CPAP at bedtime Subjective Date of service: 08/20/21 Principal diagnosis: Fluid overload, end-stage renal failure, chronic atrial fibrillation Interval history: Patient seen and examined. Medical records and medication list reviewed. No acute event overnight noted by the RN. Patient continued to complains of difficulty breathing He also states that he is having headache today and apparently feeling low energy Discussed plan of care at bedside with patient. Objective - Exam Narrative Exam: GENERAL: well-developed. [place] male lying on bed appeared to be in no discomfort. HEENT: Normocephalic. Atraumatic. No conjunctival congestion or icterus. Patient has moist mucous membranes. NECK: Supple. Trachea midline. CHEST/LUNGS: Diminished breath sounds auscultated bilaterally, breathing nonlabored. No wheezes HEART/CARDIOVASCULAR: Regular in rate and rhythm. S1 and S2 positive. ABDOMEN: Abdomen is soft, nontender. Patient has normal bowel sounds. SKIN: There is no rash. Warm and dry. NEURO: No focal motor deficit. Follows command. MUSCULOSKELETAL: No joint effusion or tenderness. EXTRIMITY: 1+ edema, no cyanosis or clubbing. PSYCH: Cooperative. - Constitutional Vitals: Vital Signs - 12hr 08/20/21 08/20/21 08/20/21 03:01 06:15 08:10 Temperature 98.6 F 98.8 F 98.4 F Pulse Rate 100 H 107 H 110 H Respiratory 18 18 18 Rate Blood Pressure 166/91 Blood Pressure 188/112 189/111 [Right] O2 Sat by Pulse 96 98 95 Oximetry 08/20/21 09:33 Temperature Pulse Rate Respiratory 20 Rate Blood Pressure Blood Pressure [Right] O2 Sat by Pulse Oximetry - Labs CBC & Chem 7: 08/20/21 12:39 08/20/21 12:39 Labs: Abnormal lab results 08/20/21 08/20/21 Range/Units 05:21 05:21 Potassium 3.1 L (3.6-5.0) mmol/L BUN 38 H (9-20) mg/dL Creatinine 4.3 H (0.8-1.3) mg/dL Glucose 123 H (75-100) mg/dL Calcium 8.0 L (8.4-10.2) mg/dL PTH Intact 350.9 H (15-65) pg/mL HEART Score - HEART Score Troponin: Troponin T 0.022 ng/mL (0.00-0.029) 08/18/21 17:25
[2021-08-20] MEDS ORDERED: NON-FORMULARY EACH (Rivaroxaban 20 MG Tablet) PO SCH (13:30)
[2021-08-20] MEDS ORDERED: NON-FORMULARY EACH (Doxazosin Mesylate [Cardura] 2 MG Tablet) PO SCH (13:30)
[2021-08-20 14:30] LABS: Hematocrit 39.9 % (35.5-45.6); Hemoglobin 13.3 gm/dl (11.8-15.2); Mean Corpuscular HGB Conc 33 % (32-34); Mean Corpuscular Volume 97 fl (84-94); Platelet Count 221 K/mm3 (140-440); Red Blood Count 4.11 M/mm3 (3.65-5.03); Red Cell Distribution Width 15.3 % (13.2-15.2)
[2021-08-20 14:31] LABS: INR 0.98 (0.87-1.13)
[2021-08-20 14:32] LABS: Partial Thromboplastin Time 29.7 Sec. (24.2-36.6)
[2021-08-20] MEDS ORDERED: RIVAROXABAN 20 MG TAB PO SCH (17:00)
[2021-08-20] MEDS: ASPIRIN EC 81 MG TAB PO SCH (17:48)
[2021-08-20] MEDS: APIXABAN 2.5 MG TAB PO SCH ×2 (17:48→21:59)
[2021-08-20] MEDS: NIFEdipine XL 60 MG TAB PO SCH ×2 (17:48→21:59)
[2021-08-20] MEDS: CLOPIDOGREL 75 MG TAB PO SCH (17:48)
[2021-08-20] MEDS: DOXAZOSIN 1 MG TAB PO SCH (17:49)
[2021-08-20] MEDS: allopurinoL 100 MG TAB PO SCH (17:49)
[2021-08-20] MEDS: carvediloL 3.125 MG TAB PO SCH (22:02)
[2021-08-21 05:31] LABS: Calcium 8.2 mg/dL (8.4-10.2)
[2021-08-21] MEDS: hydrALAZINE 100 MG TAB PO SCH ×3 (06:01→22:24)
[2021-08-21] MEDS: FUROSEMIDE 40 MG/4 ML INJ IV SCH ×2 (06:01→18:38)
[2021-08-21] MEDS ORDERED: POTASSIUM CHLORIDE ER 20 MEQ TAB PO ONE ×3 (06:10→23:44)
[2021-08-21] MEDS: NIFEdipine XL 60 MG TAB PO SCH ×2 (09:24→22:23)
[2021-08-21] MEDS: DOXAZOSIN 1 MG TAB PO SCH (09:25)
[2021-08-21] MEDS: CLOPIDOGREL 75 MG TAB PO SCH (09:25)
[2021-08-21] MEDS: ASPIRIN EC 81 MG TAB PO SCH (09:25)
[2021-08-21] MEDS: carvediloL 3.125 MG TAB PO SCH ×2 (09:25→22:24)
[2021-08-21] MEDS: allopurinoL 100 MG TAB PO SCH (09:26)
[2021-08-21] MEDS: APIXABAN 2.5 MG TAB PO SCH ×2 (09:26→22:24)
[2021-08-21] MEDS: ACETAMINOPHEN 325 MG TAB PO PRN (09:29)
--- NOTE | 2021-08-21 09:51 | Progress Note ---
Assessment and Plan 1. ESRD vs CKD-5: Renal US negative for hydro. Urine studies ordered. Monitor renal function. Creatinine level remains high. Renal prognosis is guarded. Avoid nephrotoxic agents. Meds dosage based on GFR. Monitor for JUDGE needs. 2. FEN: Hypokalemia, replete K, monitor. Volume overload, diuretcis, monitor. Monitor lytes and volume status. 3. A.fib: Monitor. Followed by Cards. 4. Decompnesated HFrEF: Echo, EF 45%. Diuretics. Per protocol. Followed by Cards. 5. CAD. 6. Hypertension, uncontrolled: Adjust meds as needed. Volume control. 7. Morbid obesity with sleep apnea 8. Medical non-compliance: Counseled. Subjective: Patient was seen and examined at the bedside. Doing ok. Examination: General appearance: well-developed, obese, appears stated age, no distress HEENT: ATNC, pupils equal, no icterus Neck: trachea midline Respiratory: Clear to Auscultation Cardiology: irregular, S1S2, no murmur Gastrointestinal: soft, normoactive bowel sounds, not tender Integumentary: no rash Neurologic: AO, able to move extremities Ext: trace LE edema noted Subjective Date of service: 08/21/21 Principal diagnosis: Fluid overload, end-stage renal failure, chronic atrial fibrillation Objective - Vital Signs Vital signs: Vital Signs - 12hr 08/20/21 08/20/21 08/20/21 21:59 23:06 23:40 Temperature 98.1 F Pulse Rate 107 H Respiratory 16 19 Rate Blood Pressure 140/95 O2 Sat by Pulse 98 96 95 Oximetry 08/21/21 08/21/21 08/21/21 03:46 07:33 09:24 Temperature 97.9 F 99.0 F Pulse Rate 113 H 64 64 Respiratory 20 20 Rate Blood Pressure 144/75 122/67 122/67 O2 Sat by Pulse 94 93 Oximetry - Lab 08/22/21 04:42 08/22/21 04:42 Most recent lab results Calcium 8.2 mg/dL (8.4-10.2) L 08/21/21 04:33 Magnesium 2.20 mg/dL (1.7-2.3) 08/21/21 04:33 Medications & Allergies - Medications Allergies/Adverse Reactions: Allergies lisinopril Allergy (Verified 08/20/21 07:52) Coughing Home Medications: Home Medications Medication Instructions Recorded Confirmed Last Taken Type Amlodipine Besylate [Norvasc] 5 mg PO QDAY 08/20/21 08/20/21 Unknown History AtorvaSTATin [Lipitor] 40 mg PO QHS 08/20/21 08/20/21 Unknown History Doxazosin Mesylate [Cardura] 2 mg PO DAILY 08/20/21 08/20/21 Unknown History Furosemide [Lasix TAB] 80 mg PO QDAY 08/20/21 08/20/21 Unknown History ISOSORBIDE MONOnitrate [Imdur ER] 60 mg PO QDAY 08/20/21 08/20/21 Unknown History Rivaroxaban [Xarelto] 20 mg PO QDAY 08/20/21 08/20/21 Unknown History Sertraline [Zoloft] 50 mg PO QDAY 08/20/21 08/20/21 Unknown History Torsemide [Demadex] 20 mg PO QDAY 08/20/21 08/20/21 Unknown History allopurinoL [Zyloprim] 100 mg PO QDAY 08/20/21 08/20/21 Unknown History carvediloL [Coreg] 25 mg PO QDAY 08/20/21 08/20/21 Unknown History cloNIDine HCL [Clonidine HCl] 0.3 mg PO QDAY 08/20/21 08/20/21 Unknown History glipiZIDE [Glipizide ER] 2.5 mg PO QDAY 08/20/21 08/20/21 Unknown History Active Medications: Generic Name Dose Route Start Last Admin Trade Name Freq PRN Reason Stop Dose Admin Acetaminophen 650 mg 08/19/21 04:39 08/21/21 09:29 Acetaminophen 325 Mg Tab PO 650 mg Q4H PRN Administration Pain MILD(1-3)/Fever >100.5/DE LA PAZ Allopurinol 100 mg 08/20/21 14:00 08/21/21 09:26 Allopurinol 100 Mg Tab PO 100 mg QDAY ISHMAEL Administration Apixaban 2.5 mg 08/20/21 12:00 08/21/21 09:26 Apixaban 2.5 Mg Tab PO 2.5 mg Q12HR ISHMAEL Administration Protocol Aspirin 81 mg 08/20/21 12:00 08/21/21 09:25 Aspirin Ec 81 Mg Tab PO 81 mg QDAY ISHMAEL Administration Atorvastatin Calcium 40 mg 08/20/21 22:00 08/20/21 21:59 Atorvastatin 40 Mg Tab PO 40 mg QHS ISHMAEL Administration Carvedilol 6.25 mg 08/20/21 13:19 08/21/21 09:25 Carvedilol 3.125 Mg Tab PO 6.25 mg BID ISHMAEL Administration Clopidogrel Bisulfate 75 mg 08/20/21 12:00 08/21/21 09:25 Clopidogrel 75 Mg Tab PO 75 mg QDAY ISHMAEL Administration Doxazosin Mesylate 2 mg 08/20/21 14:00 08/21/21 09:25 Doxazosin 1 Mg Tab PO 2 mg QDAY ISHMAEL Administration Furosemide 40 mg 08/19/21 06:00 08/21/21 06:01 Furosemide 40 Mg/4 Ml Inj IV 40 mg BID@0600,1800 ISHMAEL Administration Hydralazine HCl 100 mg 08/20/21 09:00 08/21/21 06:01 Hydralazine 100 Mg Tab PO 100 mg Q8HR ISHMAEL Administration Isosorbide Mononitrate 30 mg 08/19/21 16:00 08/21/21 09:24 Isosorbide Mononitrate Er 30 Mg Tab PO 30 mg QDAY ISHMAEL Administration Morphine Sulfate 2 mg 08/19/21 04:39 Morphine 2 Mg/1 Ml Inj IV Q4H PRN Pain, Moderate (4-6) Morphine Sulfate 4 mg 08/19/21 04:39 Morphine 4 Mg/1 Ml Inj IV Q4H PRN Pain , Severe (7-10) Nifedipine 60 mg 08/20/21 12:00 08/21/21 09:24 Nifedipine Xl 60 Mg Tab PO 60 mg Q12HR ISHMAEL Administration Ondansetron HCl 4 mg 08/19/21 04:39 Ondansetron 4 Mg/2 Ml Inj IV Q8H PRN Nausea And Vomiting Sodium Chloride 10 ml 08/19/21 10:00 08/20/21 22:52 Sodium Chloride 0.9% 10 Ml Flush Syringe IV Not Given BID ISHMAEL Sodium Chloride 10 ml 08/19/21 04:39 Sodium Chloride 0.9% 10 Ml Flush Syringe IV PRN PRN LINE FLUSH
--- NOTE | 2021-08-21 13:13 | Progress Note ---
Assessment and Plan - Patient Problems (1) Edema Current Visit: Yes Status: Acute Plan to address problem: Patient presents with shortness of breath and lower extremity edema. Symptoms suggest fluid overload, which may be noncardiogenic in the setting of end-stage renal failure. His creatinine is severely elevated 4.5-4.7. He may ultimately need renal replacement therapy for fluid and electrolyte management. Echocardiogram shows left ventricular systolic function is relatively well- preserved with ejection fraction only mildly impaired at 45%. (2) Atrial fibrillation Current Visit: Yes Status: Acute Plan to address problem: Patient has atrial fibrillation which is likely chronic, was noted on a previous EKG 4 months ago. Rate control is optimal, but patient will benefit from long- term anticoagulation therapy. We have started low-dose Eliquis added to his oral antiplatelet therapy. (3) Coronary artery disease Current Visit: Yes Status: Acute Plan to address problem: Patient reports a history of coronary artery disease with coronary stent placement a year and a half ago when he lived in [place]. He has no chest pain or symptoms of coronary ischemia at this time, we will resume guideline directed medical therapy and risk factor modification. (4) Uncontrolled hypertension Current Visit: Yes Status: Acute Plan to address problem: Patient systolic blood pressure has normalized, now 120s with the addition of Procardia XL 60 mg twice daily. Subjective Date of service: 08/21/21 Principal diagnosis: Fluid overload, end-stage renal failure, chronic atrial fibrillation Interval history: Patient is comfortable, no acute distress, looks and feels better. No new ca rdiac events reported. Objective Vital Signs Temp Pulse Resp BP Pulse Ox 08/21/21 11:56 98.5 F 100 H 18 128/62 94 08/21/21 09:24 64 122/67 08/21/21 07:33 99.0 F 64 20 122/67 93 08/21/21 03:46 97.9 F 113 H 20 144/75 94 08/20/21 23:40 98.1 F 107 H 19 140/95 95 08/20/21 23:06 96 08/20/21 21:59 16 98 08/20/21 19:54 98.3 F 74 22 194/117 96 08/20/21 19:45 103 H 08/20/21 15:00 103 H - Physical Examination General: No Apparent Distress HEENT: Positive: PERRL Neck: Positive: neck supple Cardiac: Positive: Reg Rate and Rhythm Lungs: Positive: Decreased Breath Sounds Neuro: Positive: Grossly Intact Abdomen: Positive: Soft Skin: Positive: Clear Extremities: Present: +1 Edema - Labs and Meds Coagulation 08/20/21 Range/Units 12:39 PT 14.1 (12.2-14.9) Sec. INR 0.98 (0.87-1.13) APTT 29.7 (24.2-36.6) Sec. CBC 08/20/21 Range/Units 12:39 WBC 8.7 (4.5-11.0) K/mm3 RBC 4.11 (3.65-5.03) M/mm3 Hgb 13.3 (11.8-15.2) gm/dl Hct 39.9 (35.5-45.6) % Plt Count 221 (140-440) K/mm3 Comprehensive Metabolic Panel 08/20/21 08/21/21 Range/Units 12:39 04:33 Sodium 142 (137-145) mmol/L Potassium 2.9 L* (3.6-5.0) mmol/L Chloride 102.7 (98-107) mmol/L Carbon Dioxide 24 (22-30) mmol/L BUN 40 H (9-20) mg/dL Creatinine 4.3 H 4.6 H (0.8-1.3) mg/dL Glucose 138 H (75-100) mg/dL Calcium 8.2 L (8.4-10.2) mg/dL
--- NOTE | 2021-08-21 15:22 | Progress Note ---
Assessment and Plan 60-year-old -[place] male with known history of CHF, chronic kidney disease presenting to the emergency room complaining of progressive swelling of his lower extremities and shortness of breath which has been ongoing for the past 2 weeks. Work-up in the emergency room today EKG shows atrial fibrillation, chest x-ray was unremarkable. Labs reveals elevated BNP of 2023, potassium 3.3. BUN of 47 and creatinine of 4.7 Patient was admitted for CHF exacerbation Assessment Acute systolic CHF exacerbation EF 40-45% Atrial fibrillation-possibly chronic CHRISTIANO on Chronic kidney disease, vasomotor nephropathy Hypokalemia Morbid obesity with sleep apnea Hypertension, uncontrolled Plan: 08/19 Patient was admitted for CHF exacerbation, 2D echo showed EF of 45% Cardiology consulted, continue diuresis, follow cardiology recommendation 08/20 -- Continue diuretics, replete electrolytes as needed -- Renal function slightly improved today, continue to follow BMP -- BP still remains uncontrolled and SBP at 180s -we will continue to adjust medications, will avoid nephrotoxins -- Continue to follow clinically follow nephrology and cardiology recommendation -- Patient placed on anticoagulation with Eliquis -- Continue CPAP at bedtime 08/21: Creatinine continue to trend up, continue to follow. Add ambien I at bedtime for sleep Subjective Date of service: 08/21/21 Principal diagnosis: Fluid overload, end-stage renal failure, chronic atrial fibrillation Interval history: Patient seen and examined. Medical records and medication list reviewed. No acute event overnight noted by the RN. Patient continued to complains of difficulty breathing Renal function remains unchanged and continues to decline Discussed plan of care at bedside with patient. Objective - Exam Narrative Exam: GENERAL: well-developed. [place] male lying on bed appeared to be in no discomfort. HEENT: Normocephalic. Atraumatic. No conjunctival congestion or icterus. Patient has moist mucous membranes. NECK: Supple. Trachea midline. CHEST/LUNGS: Diminished breath sounds auscultated bilaterally, breathing nonlabored. No wheezes HEART/CARDIOVASCULAR: Regular in rate and rhythm. S1 and S2 positive. ABDOMEN: Abdomen is soft, nontender. Patient has normal bowel sounds. SKIN: There is no rash. Warm and dry. NEURO: No focal motor deficit. Follows command. MUSCULOSKELETAL: No joint effusion or tenderness. EXTRIMITY: 1+ edema, no cyanosis or clubbing. PSYCH: Cooperative. - Constitutional Vitals: Vital Signs - 12hr 08/21/21 08/21/21 08/21/21 03:46 07:33 09:24 Temperature 97.9 F 99.0 F Pulse Rate 113 H 64 64 Respiratory 20 20 Rate Blood Pressure 144/75 122/67 122/67 O2 Sat by Pulse 94 93 Oximetry 08/21/21 11:56 Temperature 98.5 F Pulse Rate 100 H Respiratory 18 Rate Blood Pressure 128/62 O2 Sat by Pulse 94 Oximetry - Labs CBC & Chem 7: 08/22/21 04:42 08/23/21 05:28 Labs: Abnormal lab results 08/21/21 Range/Units 04:33 Potassium 2.9 L* (3.6-5.0) mmol/L BUN 40 H (9-20) mg/dL Creatinine 4.6 H (0.8-1.3) mg/dL Glucose 138 H (75-100) mg/dL Calcium 8.2 L (8.4-10.2) mg/dL HEART Score - HEART Score Troponin: Troponin T 0.022 ng/mL (0.00-0.029) 08/18/21 17:25
[2021-08-21] MEDS: ZOLPIDEM 5 MG TAB PO PRN (22:24)
[2021-08-22 04:57] LABS: Hematocrit 34.9 % (35.5-45.6); Hemoglobin 11.6 gm/dl (11.8-15.2); Mean Corpuscular HGB Conc 33 % (32-34); Mean Corpuscular Volume 96 fl (84-94); Platelet Count 186 K/mm3 (140-440); Red Blood Count 3.62 M/mm3 (3.65-5.03); Red Cell Distribution Width 15.4 % (13.2-15.2)
[2021-08-22 05:14] LABS: Calcium 8.3 mg/dL (8.4-10.2)
[2021-08-22] MEDS: FUROSEMIDE 40 MG/4 ML INJ IV SCH ×2 (06:07→17:21)
[2021-08-22] MEDS: hydrALAZINE 100 MG TAB PO SCH ×3 (06:08→21:54)
[2021-08-22] MEDS ORDERED: POTASSIUM CHLORIDE ER 20 MEQ TAB PO SCH (08:00)
--- NOTE | 2021-08-22 09:42 | Progress Note ---
Assessment and Plan 1. ESRD vs CKD-5: Renal US negative for hydro. Urine studies ordered. Monitor renal function. Creatinine level remains high. Renal prognosis is guarded. Avoid nephrotoxic agents. Meds dosage based on GFR. 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 D/w patient about the possiblity of starting dialysis during this admission. He is agreeable. 2. FEN: Hypokalemia, replete K, monitor. Volume overload, diuretcis, monitor. Monitor lytes and volume status. 3. A.fib: Monitor. Followed by Cards. 4. Decompnesated HFrEF: Echo, EF 45%. Diuretics. Per protocol. Followed by Cards. 5. CAD. 6. Hypertension, uncontrolled: Adjust meds as needed. Volume control. 7. Morbid obesity with sleep apnea 8. Medical non-compliance: Counseled. Subjective: Patient was seen and examined at the bedside. No new complaint. Examination: General appearance: well-developed, obese, appears stated age, no distress HEENT: ATNC, pupils equal, no icterus Neck: trachea midline Respiratory: Clear to Auscultation Cardiology: irregular, S1S2, no murmur Gastrointestinal: soft, normoactive bowel sounds, not tender Integumentary: no rash Neurologic: AO, able to move extremities Ext: trace LE edema noted Subjective Date of service: 08/22/21 Principal diagnosis: Fluid overload, end-stage renal failure, chronic atrial fi brillation Objective - Vital Signs Vital signs: Vital Signs - 12hr 08/21/21 08/21/21 08/21/21 22:24 23:00 23:40 Temperature 99.8 F H Pulse Rate 120 H 121 H Respiratory 19 Rate Blood Pressure 137/88 141/84 O2 Sat by Pulse 96 94 Oximetry 08/22/21 08/22/21 03:01 07:55 Temperature 98.7 F 98.4 F Pulse Rate 111 H 78 Respiratory 22 18 Rate Blood Pressure 138/79 144/78 O2 Sat by Pulse 94 93 Oximetry - Lab 08/22/21 04:42 08/23/21 05:28 Most recent lab results Calcium 8.3 mg/dL (8.4-10.2) L 08/22/21 04:42 Magnesium 2.20 mg/dL (1.7-2.3) 08/21/21 04:33 Medications & Allergies - Medications Allergies/Adverse Reactions: Allergies lisinopril Allergy (Verified 08/20/21 07:52) Coughing Home Medications: Home Medications Medication Instructions Recorded Confirmed Last Taken Type Amlodipine Besylate [Norvasc] 5 mg PO QDAY 08/20/21 08/20/21 Unknown History AtorvaSTATin [Lipitor] 40 mg PO QHS 08/20/21 08/20/21 Unknown History Doxazosin Mesylate [Cardura] 2 mg PO DAILY 08/20/21 08/20/21 Unknown History Furosemide [Lasix TAB] 80 mg PO QDAY 08/20/21 08/20/21 Unknown History ISOSORBIDE MONOnitrate [Imdur ER] 60 mg PO QDAY 08/20/21 08/20/21 Unknown History Rivaroxaban [Xarelto] 20 mg PO QDAY 08/20/21 08/20/21 Unknown History Sertraline [Zoloft] 50 mg PO QDAY 08/20/21 08/20/21 Unknown History Torsemide [Demadex] 20 mg PO QDAY 08/20/21 08/20/21 Unknown History allopurinoL [Zyloprim] 100 mg PO QDAY 08/20/21 08/20/21 Unknown History carvediloL [Coreg] 25 mg PO QDAY 08/20/21 08/20/21 Unknown History cloNIDine HCL [Clonidine HCl] 0.3 mg PO QDAY 08/20/21 08/20/21 Unknown History glipiZIDE [Glipizide ER] 2.5 mg PO QDAY 08/20/21 08/20/21 Unknown History Active Medications: Generic Name Dose Route Start Last Admin Trade Name Bjq PRN Reason Stop Dose Admin Acetaminophen 650 mg 08/19/21 04:39 08/21/21 09:29 Acetaminophen 325 Mg Tab PO 650 mg Q4H PRN Administration Pain MILD(1-3)/Fever >100.5/DE LA PAZ Allopurinol 100 mg 08/20/21 14:00 08/21/21 09:26 Allopurinol 100 Mg Tab PO 100 mg QDAY ISHMAEL Administration Apixaban 2.5 mg 08/20/21 12:00 08/21/21 22:24 Apixaban 2.5 Mg Tab PO 2.5 mg Q12HR ISHMAEL Administration Protocol Aspirin 81 mg 08/20/21 12:00 08/21/21 09:25 Aspirin Ec 81 Mg Tab PO 81 mg QDAY ISHMAEL Administration Atorvastatin Calcium 40 mg 08/20/21 22:00 08/21/21 22:24 Atorvastatin 40 Mg Tab PO 40 mg QHS ISHMAEL Administration Carvedilol 6.25 mg 08/20/21 13:19 08/21/21 22:24 Carvedilol 3.125 Mg Tab PO 6.25 mg BID ISHMAEL Administration Clopidogrel Bisulfate 75 mg 08/20/21 12:00 08/21/21 09:25 Clopidogrel 75 Mg Tab PO 75 mg QDAY ISHMAEL Administration Doxazosin Mesylate 2 mg 08/20/21 14:00 08/21/21 09:25 Doxazosin 1 Mg Tab PO 2 mg QDAY ISHMAEL Administration Furosemide 40 mg 08/19/21 06:00 08/22/21 06:07 Furosemide 40 Mg/4 Ml Inj IV 40 mg BID@0600,1800 ISHMAEL Administration Hydralazine HCl 100 mg 08/20/21 09:00 08/22/21 06:08 Hydralazine 100 Mg Tab PO 100 mg Q8HR ISHMAEL Administration Isosorbide Mononitrate 30 mg 08/19/21 16:00 08/21/21 09:24 Isosorbide Mononitrate Er 30 Mg Tab PO 30 mg QDAY ISHMAEL Administration Morphine Sulfate 2 mg 08/19/21 04:39 Morphine 2 Mg/1 Ml Inj IV Q4H PRN Pain, Moderate (4-6) Morphine Sulfate 4 mg 08/19/21 04:39 Morphine 4 Mg/1 Ml Inj IV Q4H PRN Pain , Severe (7-10) Nifedipine 60 mg 08/20/21 12:00 08/21/21 22:23 Nifedipine Xl 60 Mg Tab PO 60 mg Q12HR ISHMAEL Administration Ondansetron HCl 4 mg 08/19/21 04:39 Ondansetron 4 Mg/2 Ml Inj IV Q8H PRN Nausea And Vomiting Potassium Chloride 40 meq 08/22/21 08:00 Potassium Chloride Er 20 Meq Tab PO 08/22/21 12:00 ONCE@0800 ISHMAEL Sodium Chloride 10 ml 08/19/21 10:00 08/21/21 22:25 Sodium Chloride 0.9% 10 Ml Flush Syringe IV 10 ml BID ISHMAEL Administration Sodium Chloride 10 ml 08/19/21 04:39 08/21/21 18:39 Sodium Chloride 0.9% 10 Ml Flush Syringe IV 10 ml PRN PRN Administration LINE FLUSH Zolpidem Tartrate 5 mg 08/21/21 22:00 08/21/21 22:24 Zolpidem 5 Mg Tab PO 5 mg QHS PRN Administration Sleep
[2021-08-22] MEDS: carvediloL 3.125 MG TAB PO SCH (09:58)
[2021-08-22] MEDS: allopurinoL 100 MG TAB PO SCH (09:58)
[2021-08-22] MEDS: ASPIRIN EC 81 MG TAB PO SCH (09:58)
[2021-08-22] MEDS: APIXABAN 2.5 MG TAB PO SCH ×2 (09:58→21:54)
[2021-08-22] MEDS: NIFEdipine XL 60 MG TAB PO SCH ×2 (09:58→21:54)
[2021-08-22] MEDS: DOXAZOSIN 1 MG TAB PO SCH (09:59)
[2021-08-22] MEDS: CLOPIDOGREL 75 MG TAB PO SCH (09:59)
--- NOTE | 2021-08-22 11:13 | Progress Note ---
Assessment and Plan 60-year-old -German male with known history of CHF, chronic kidney disease presenting to the emergency room complaining of progressive swelling of his lower extremities and shortness of breath which has been ongoing for the past 2 weeks. Work-up in the emergency room today EKG shows atrial fibrillation, chest x-ray was unremarkable. Labs reveals elevated BNP of 2023, potassium 3.3. BUN of 47 and creatinine of 4.7 Patient was admitted for CHF exacerbation Assessment Acute systolic CHF exacerbation EF 40-45% Atrial fibrillation-possibly chronic CHRISTIANO on Chronic kidney disease, likely progressed to ESRD Hypokalemia Morbid obesity with sleep apnea Hypertension, uncontrolled Plan: 08/19 Patient was admitted for CHF exacerbation, 2D echo showed EF of 45% Cardiology consulted, continue diuresis, follow cardiology recommendation 08/20 -- Continue diuretics, replete electrolytes as needed -- Renal function slightly improved today, continue to follow BMP -- BP still remains uncontrolled and SBP at 180s -we will continue to adjust medications, will avoid nephrotoxins -- Continue to follow clinically follow nephrology and cardiology recommendation -- Patient placed on anticoagulation with Eliquis -- Continue CPAP at bedtime 08/21: Creatinine continue to trend up, continue to follow. Add ambien I at bedtime for sleep 08/22: Cr cont to trend up, discussed with nephrology. plan to start HD likely from Tuesday Subjective Date of service: 08/22/21 Principal diagnosis: Fluid overload, end-stage renal failure, chronic atrial fibrillation Interval history: Patient seen and examined. Medical records and medication list reviewed. No acute event overnight noted by the RN. Patient continued to complains of difficulty breathing Renal function remains unchanged and continues to decline Discussed plan of care at bedside with patient. Objective - Exam Narrative Exam: GENERAL: well-developed. [place] male lying on bed appeared to be in no discomfort. HEENT: Normocephalic. Atraumatic. No conjunctival congestion or icterus. Patient has moist mucous membranes. NECK: Supple. Trachea midline. CHEST/LUNGS: Diminished breath sounds auscultated bilaterally, breathing nonlabored. No wheezes HEART/CARDIOVASCULAR: Regular in rate and rhythm. S1 and S2 positive. ABDOMEN: Abdomen is soft, nontender. Patient has normal bowel sounds. SKIN: There is no rash. Warm and dry. NEURO: No focal motor deficit. Follows command. MUSCULOSKELETAL: No joint effusion or tenderness. EXTRIMITY: 1+ edema, no cyanosis or clubbing. PSYCH: Cooperative. - Constitutional Vitals: Vital Signs - 12hr 08/21/21 08/22/21 08/22/21 23:40 03:01 07:55 Temperature 99.8 F H 98.7 F 98.4 F Pulse Rate 121 H 111 H 78 Respiratory 19 22 18 Rate Blood Pressure 141/84 138/79 144/78 O2 Sat by Pulse 94 94 93 Oximetry 08/22/21 10:46 Temperature Pulse Rate Respiratory Rate Blood Pressure O2 Sat by Pulse 96 Oximetry - Labs CBC & Chem 7: 08/22/21 04:42 08/23/21 05:28 Labs: Abnormal lab results 08/21/21 08/22/21 08/22/21 Range/Units 16:42 04:42 04:42 RBC 3.62 L (3.65-5.03) M/mm3 Hgb 11.6 L (11.8-15.2) gm/dl Hct 34.9 L (35.5-45.6) % MCV 96 H (84-94) fl RDW 15.4 H (13.2-15.2) % Potassium 3.3 L 3.5 L (3.6-5.0) mmol/L BUN 39 H (9-20) mg/dL Creatinine 4.9 H (0.8-1.3) mg/dL Glucose 141 H (75-100) mg/dL Calcium 8.3 L (8.4-10.2) mg/dL HEART Score - HEART Score Troponin: Troponin T 0.022 ng/mL (0.00-0.029) 08/18/21 17:25
--- NOTE | 2021-08-22 12:11 | Progress Note ---
Assessment and Plan #Likely persistent atrial fibrillation #End-stage renal disease, currently not on dialysis #CAD status post prior PCI 1-1/2 years ago in [place] #CardiomyopathyEcho this admission shows LVEF 45% #Hypertension Increase carvedilol to 12.5 mg p.o. twice daily given uncontrolled AF. Continue eliquis; recommended dose is 5mg BID (but patient is also receiving DAPT). Continue GDMT for CAD and cardiomyopathy. Diuresis / volume management per nephrology. Subjective Date of service: 08/22/21 Principal diagnosis: Fluid overload, end-stage renal failure, chronic atrial fibrillation Interval history: No complaints, denies chest pain, shortness of breath, or palpitations. Telemetryuncontrolled AF, heart rates 120s to 140s Objective Vital Signs Temp Pulse Resp BP Pulse Ox 08/22/21 11:43 115 H 18 165/105 94 08/22/21 10:46 96 08/22/21 07:55 98.4 F 78 18 144/78 93 08/22/21 03:01 98.7 F 111 H 22 138/79 94 08/21/21 23:40 99.8 F H 121 H 19 141/84 94 08/21/21 23:00 96 08/21/21 22:24 120 H 137/88 08/21/21 20:24 16 96 08/21/21 20:15 131 H 08/21/21 19:55 98.4 F 131 H 137/88 95 08/21/21 16:22 98.5 F 73 20 122/84 94 08/21/21 14:00 110 H - Physical Examination General: No Apparent Distress HEENT: Positive: PERRL Neck: Positive: neck supple Cardiac: Positive: irregularly irregular, Tachycardia Neuro: Positive: Grossly Intact Abdomen: Positive: Soft Skin: Positive: Clear Extremities: Present: +1 Edema - Labs and Meds CBC 08/22/21 Range/Units 04:42 WBC 8.1 (4.5-11.0) K/mm3 RBC 3.62 L (3.65-5.03) M/mm3 Hgb 11.6 L (11.8-15.2) gm/dl Hct 34.9 L (35.5-45.6) % Plt Count 186 (140-440) K/mm3 Comprehensive Metabolic Panel 06/10/22 06/11/22 Range/Units 16:42 04:42 Sodium 142 (137-145) mmol/L Potassium 3.3 L 3.5 L (3.6-5.0) mmol/L Chloride 104.0 (98-107) mmol/L Carbon Dioxide 23 (22-30) mmol/L BUN 39 H (9-20) mg/dL Creatinine 4.9 H (0.8-1.3) mg/dL Glucose 141 H (75-100) mg/dL Calcium 8.3 L (8.4-10.2) mg/dL
[2021-08-22] MEDS: ZOLPIDEM 5 MG TAB PO PRN (21:57)
[2021-08-22] MEDS ORDERED: carvediloL 12.5 MG TAB PO SCH (22:00)
[2021-08-23] MEDS: ACETAMINOPHEN 325 MG TAB PO PRN (05:15)
[2021-08-23] MEDS: FUROSEMIDE 40 MG/4 ML INJ IV SCH ×2 (05:15→17:05)
[2021-08-23] MEDS: hydrALAZINE 100 MG TAB PO SCH ×3 (05:15→22:04)
[2021-08-23 06:38] LABS: Calcium 8.2 mg/dL (8.4-10.2)
--- NOTE | 2021-08-23 09:31 | Progress Note ---
Assessment and Plan #Likely persistent atrial fibrillation #End-stage renal disease, currently not on dialysis #CAD status post prior PCI 1-1/2 years ago in [place] #CardiomyopathyEcho this admission shows LVEF 45% #Hypertension AF rate control improving but still elevated to 120s. Increase carvedilol to 25 mg p.o. twice daily. Continue eliquis; recommended dose is 5mg BID (but patient is also receiving DAPT per interventional cardiology). Continue GDMT for CAD and cardiomyopathy. Diuresis / volume management per nephrology. Subjective Date of service: 08/23/21 Principal diagnosis: Fluid overload, end-stage renal failure, chronic atrial fibrillation Interval history: No cardiac events. Denies chest pain, shortness of breath, or palpitations. Telemetryuncontrolled AF but HR improved, mostly 120s Objective Vital Signs Temp Pulse Resp BP Pulse Ox 08/23/21 08:43 96 08/23/21 06:00 118 H 08/23/21 04:46 99.5 F 118 H 18 151/89 98 08/23/21 03:34 95 H 19 99 08/23/21 00:37 99.1 F 108 H 18 130/78 97 08/22/21 23:03 82 24 98 08/22/21 23:00 96 08/22/21 22:00 110 H 08/22/21 21:54 124 H 148/69 08/22/21 19:48 99.3 F 124 H 20 148/69 96 08/22/21 18:45 116 H 30 H 96 08/22/21 15:33 100 H 18 112/71 96 08/22/21 11:43 115 H 18 165/105 94 08/22/21 10:46 96 - Physical Examination General: No Apparent Distress HEENT: Positive: PERRL Neck: Positive: neck supple Neuro: Positive: Grossly Intact Abdomen: Positive: Soft Skin: Positive: Clear Extremities: Present: edema Other: trace edema - Labs and Meds Comprehensive Metabolic Panel 08/23/21 Range/Units 05:28 Sodium 138 (137-145) mmol/L Potassium 3.4 L (3.6-5.0) mmol/L Chloride 103.3 (98-107) mmol/L Carbon Dioxide 23 (22-30) mmol/L BUN 38 H (9-20) mg/dL Creatinine 4.6 H (0.8-1.3) mg/dL Glucose 131 H (75-100) mg/dL Calcium 8.2 L (8.4-10.2) mg/dL
[2021-08-23] MEDS: carvediloL 25 MG TAB PO SCH ×2 (10:00→22:03)
[2021-08-23] MEDS: NIFEdipine XL 60 MG TAB PO SCH (10:00)
[2021-08-23] MEDS: APIXABAN 2.5 MG TAB PO SCH ×2 (10:01→22:03)
[2021-08-23] MEDS: CLOPIDOGREL 75 MG TAB PO SCH (10:01)
[2021-08-23] MEDS: DOXAZOSIN 1 MG TAB PO SCH (10:01)
[2021-08-23] MEDS: allopurinoL 100 MG TAB PO SCH (10:01)
[2021-08-23] MEDS: ASPIRIN EC 81 MG TAB PO SCH (10:01)
--- NOTE | 2021-08-23 12:47 | Progress Note ---
Assessment and Plan 1. ESRD vs CKD-5: Renal US negative for hydro. Urine studies ordered. Monitor renal function. Creatinine level remains high. Renal prognosis is guarded. Avoid nephrotoxic agents. Meds dosage based on GFR. 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 D/w patient about the possiblity of starting dialysis during this admission. He is agreeable. 2. FEN: Hypokalemia, replete K, monitor. Volume overload, diuretcis, monitor. Monitor lytes and volume status. 3. A.fib: Monitor. Followed by Cards. 4. Decompnesated HFrEF: Echo, EF 45%. Diuretics. Per protocol. Followed by Cards. 5. CAD. 6. Hypertension, uncontrolled: Adjust meds as needed. Volume control. 7. Morbid obesity with sleep apnea 8. Medical non-compliance: Counseled. Subjective: Patient was seen and examined at the bedside. No new complaint. Examination: General appearance: well-developed, obese, appears stated age, no distress HEENT: ATNC, pupils equal, no icterus Neck: trachea midline Respiratory: Clear to Auscultation Cardiology: irregular, S1S2, no murmur Gastrointestinal: soft, normoactive bowel sounds, not tender Integumentary: no rash Neurologic: AO, able to move extremities Ext: trace LE edema noted Subjective Date of service: 08/23/21 Principal diagnosis: Fluid overload, end-stage renal failure, chronic atrial fi brillation Objective - Vital Signs Vital signs: Vital Signs - 12hr 08/23/21 08/23/21 08/23/21 03:34 04:46 06:00 Temperature 99.5 F Pulse Rate 95 H 118 H 118 H Respiratory 19 18 Rate Blood Pressure 151/89 O2 Sat by Pulse 99 98 Oximetry 08/23/21 08/23/21 08:43 10:17 Temperature 98.4 F Pulse Rate 117 H Respiratory 20 Rate Blood Pressure 142/96 O2 Sat by Pulse 96 93 Oximetry - Lab 08/22/21 04:42 08/23/21 05:28 Most recent lab results Calcium 8.2 mg/dL (8.4-10.2) L 08/23/21 05:28 Magnesium 2.20 mg/dL (1.7-2.3) 08/21/21 04:33 Medications & Allergies - Medications Allergies/Adverse Reactions: Allergies lisinopril Allergy (Verified 08/20/21 07:52) Coughing Home Medications: Home Medications Medication Instructions Recorded Confirmed Last Taken Type Amlodipine Besylate [Norvasc] 5 mg PO QDAY 08/20/21 08/20/21 Unknown History AtorvaSTATin [Lipitor] 40 mg PO QHS 08/20/21 08/20/21 Unknown History Doxazosin Mesylate [Cardura] 2 mg PO DAILY 08/20/21 08/20/21 Unknown History Furosemide [Lasix TAB] 80 mg PO QDAY 08/20/21 08/20/21 Unknown History ISOSORBIDE MONOnitrate [Imdur ER] 60 mg PO QDAY 08/20/21 08/20/21 Unknown History Rivaroxaban [Xarelto] 20 mg PO QDAY 08/20/21 08/20/21 Unknown History Sertraline [Zoloft] 50 mg PO QDAY 08/20/21 08/20/21 Unknown History Torsemide [Demadex] 20 mg PO QDAY 08/20/21 08/20/21 Unknown History allopurinoL [Zyloprim] 100 mg PO QDAY 08/20/21 08/20/21 Unknown History carvediloL [Coreg] 25 mg PO QDAY 08/20/21 08/20/21 Unknown History cloNIDine HCL [Clonidine HCl] 0.3 mg PO QDAY 08/20/21 08/20/21 Unknown History glipiZIDE [Glipizide ER] 2.5 mg PO QDAY 08/20/21 08/20/21 Unknown History Active Medications: Generic Name Dose Route Start Last Admin Trade Name Freq PRN Reason Stop Dose Admin Acetaminophen 650 mg 08/19/21 04:39 08/23/21 05:15 Acetaminophen 325 Mg Tab PO 650 mg Q4H PRN Administration Pain MILD(1-3)/Fever >100.5/DE LA PAZ Allopurinol 100 mg 08/20/21 14:00 08/23/21 10:01 Allopurinol 100 Mg Tab PO 100 mg QDAY ISHMAEL Administration Apixaban 2.5 mg 08/20/21 12:00 08/23/21 10:01 Apixaban 2.5 Mg Tab PO 2.5 mg Q12HR ISHMAEL Administration Protocol Aspirin 81 mg 08/20/21 12:00 08/23/21 10:01 Aspirin Ec 81 Mg Tab PO 81 mg QDAY ISHMAEL Administration Atorvastatin Calcium 40 mg 08/20/21 22:00 08/22/21 21:54 Atorvastatin 40 Mg Tab PO 40 mg QHS ISHMAEL Administration Carvedilol 25 mg 08/23/21 10:00 08/23/21 10:00 Carvedilol 25 Mg Tab PO 25 mg BID ISHMAEL Administration Clopidogrel Bisulfate 75 mg 08/20/21 12:00 08/23/21 10:01 Clopidogrel 75 Mg Tab PO 75 mg QDAY ISHMAEL Administration Doxazosin Mesylate 2 mg 08/20/21 14:00 08/23/21 10:01 Doxazosin 1 Mg Tab PO 2 mg QDAY ISHMAEL Administration Furosemide 40 mg 08/19/21 06:00 08/23/21 05:15 Furosemide 40 Mg/4 Ml Inj IV 40 mg BID@0600,1800 ISHMAEL Administration Hydralazine HCl 100 mg 08/20/21 09:00 08/23/21 05:15 Hydralazine 100 Mg Tab PO 100 mg Q8HR ISHMAEL Administration Isosorbide Mononitrate 30 mg 08/19/21 16:00 08/23/21 10:01 Isosorbide Mononitrate Er 30 Mg Tab PO 30 mg QDAY ISHMAEL Administration Morphine Sulfate 2 mg 08/19/21 04:39 Morphine 2 Mg/1 Ml Inj IV Q4H PRN Pain, Moderate (4-6) Morphine Sulfate 4 mg 08/19/21 04:39 Morphine 4 Mg/1 Ml Inj IV Q4H PRN Pain , Severe (7-10) Nifedipine 60 mg 08/20/21 12:00 08/23/21 10:00 Nifedipine Xl 60 Mg Tab PO 60 mg Q12HR ISHMAEL Administration Ondansetron HCl 4 mg 08/19/21 04:39 Ondansetron 4 Mg/2 Ml Inj IV Q8H PRN Nausea And Vomiting Potassium Chloride 40 meq 08/23/21 12:44 Potassium Chloride Er 20 Meq Tab PO 08/23/21 12:45 ONCE ONE Sodium Chloride 10 ml 08/19/21 10:00 08/23/21 10:01 Sodium Chloride 0.9% 10 Ml Flush Syringe IV 10 ml BID ISHMAEL Administration Sodium Chloride 10 ml 08/19/21 04:39 08/21/21 18:39 Sodium Chloride 0.9% 10 Ml Flush Syringe IV 10 ml PRN PRN Administration LINE FLUSH Zolpidem Tartrate 5 mg 08/21/21 22:00 08/22/21 21:57 Zolpidem 5 Mg Tab PO 5 mg QHS PRN Administration Sleep
[2021-08-23] MEDS ORDERED: POTASSIUM CHLORIDE ER 20 MEQ TAB PO ONE (13:40)
--- NOTE | 2021-08-23 14:10 | Progress Note ---
Assessment and Plan 60-year-old -[place] male with known history of CHF, chronic kidney disease presenting to the emergency room complaining of progressive swelling of his lower extremities and shortness of breath which has been ongoing for the past 2 weeks. Work-up in the emergency room today EKG shows atrial fibrillation, chest x-ray was unremarkable. Labs reveals elevated BNP of 2023, potassium 3.3. BUN of 47 and creatinine of 4.7 Patient was admitted for CHF exacerbation Assessment Acute systolic CHF exacerbation EF 40-45% Atrial fibrillation-possibly chronic CHRISTIANO on Chronic kidney disease, likely progressed to ESRD Hypokalemia Morbid obesity with sleep apnea Hypertension, uncontrolled Plan: 08/19 Patient was admitted for CHF exacerbation, 2D echo showed EF of 45% Cardiology consulted, continue diuresis, follow cardiology recommendation 08/20 -- Continue diuretics, replete electrolytes as needed -- Renal function slightly improved today, continue to follow BMP -- BP still remains uncontrolled and SBP at 180s -we will continue to adjust medications, will avoid nephrotoxins -- Continue to follow clinically follow nephrology and cardiology recommendation -- Patient placed on anticoagulation with Eliquis -- Continue CPAP at bedtime 08/21: Creatinine continue to trend up, continue to follow. Add ambien I at bedtime for sleep 08/22: Cr cont to trend up, discussed with nephrology. plan to start HD likely from Wednesday 08/23: cont to monitor BMP, likely to start HD from next week Subjective Date of service: 08/23/21 Principal diagnosis: Fluid overload, end-stage renal failure, chronic atrial fibrillation Interval history: Patient seen and examined. Medical records and medication list reviewed. No acute event overnight noted by the RN. Patient continued to complains of difficulty breathing Renal function continues to remain coarse without any improvement Discussed plan of care at bedside with patient. Objective - Exam Narrative Exam: GENERAL: well-developed. [place] male lying on bed appeared to be in no discomfort. HEENT: Normocephalic. Atraumatic. No conjunctival congestion or icterus. Patient has moist mucous membranes. NECK: Supple. Trachea midline. CHEST/LUNGS: Diminished breath sounds auscultated bilaterally, breathing nonlabored. No wheezes HEART/CARDIOVASCULAR: Regular in rate and rhythm. S1 and S2 positive. ABDOMEN: Abdomen is soft, nontender. Patient has normal bowel sounds. SKIN: There is no rash. Warm and dry. NEURO: No focal motor deficit. Follows command. MUSCULOSKELETAL: No joint effusion or tenderness. EXTRIMITY: 1+ edema, no cyanosis or clubbing. PSYCH: Cooperative. - Constitutional Vitals: Vital Signs - 12hr 08/23/21 08/23/21 08/23/21 03:34 04:46 06:00 Temperature 99.5 F Pulse Rate 95 H 118 H 118 H Respiratory 19 18 Rate Blood Pressure 151/89 O2 Sat by Pulse 99 98 Oximetry 08/23/21 08/23/21 08:43 10:17 Temperature 98.4 F Pulse Rate 117 H Respiratory 20 Rate Blood Pressure 142/96 O2 Sat by Pulse 96 93 Oximetry - Labs CBC & Chem 7: 08/24/21 07:21 08/24/21 07:21 Labs: Abnormal lab results 08/23/21 Range/Units 05:28 Potassium 3.4 L (3.6-5.0) mmol/L BUN 38 H (9-20) mg/dL Creatinine 4.6 H (0.8-1.3) mg/dL Glucose 131 H (75-100) mg/dL Calcium 8.2 L (8.4-10.2) mg/dL HEART Score - HEART Score Troponin: Troponin T 0.022 ng/mL (0.00-0.029) 08/18/21 17:25
[2021-08-23] MEDS: rOPINIRole 0.25 MG TAB PO SCH (22:07)
[2021-08-23] MEDS: ZOLPIDEM 5 MG TAB PO PRN (22:07)
[2021-08-24] MEDS: NIFEdipine XL 60 MG TAB PO SCH ×3 (04:19→21:56)
[2021-08-24] MEDS: hydrALAZINE 100 MG TAB PO SCH ×3 (06:12→21:56)
[2021-08-24] MEDS: FUROSEMIDE 40 MG/4 ML INJ IV SCH ×2 (06:13→17:40)
[2021-08-24 08:17] LABS: Calcium 8.3 mg/dL (8.4-10.2)
[2021-08-24] MEDS: DOXAZOSIN 1 MG TAB PO SCH (09:08)
[2021-08-24] MEDS: ASPIRIN EC 81 MG TAB PO SCH (09:08)
[2021-08-24] MEDS: allopurinoL 100 MG TAB PO SCH (09:08)
[2021-08-24] MEDS: carvediloL 25 MG TAB PO SCH ×2 (09:08→21:56)
[2021-08-24] MEDS: APIXABAN 2.5 MG TAB PO SCH (09:08)
[2021-08-24 09:10] LABS: Hematocrit 33.9 % (35.5-45.6); Hemoglobin 11.2 gm/dl (11.8-15.2); Mean Corpuscular HGB Conc 33 % (32-34); Mean Corpuscular Volume 97 fl (84-94); Platelet Count 180 K/mm3 (140-440); Red Blood Count 3.49 M/mm3 (3.65-5.03); Red Cell Distribution Width 15.3 % (13.2-15.2)
--- NOTE | 2021-08-24 10:43 | Progress Note ---
Assessment and Plan - Patient Problems (1) Edema Current Visit: Yes Status: Acute Plan to address problem: Patient presents with shortness of breath and lower extremity edema. Symptoms suggest fluid overload, which may be noncardiogenic in the setting of end-stage renal failure. His creatinine is severely elevated 4.5-4.7. He may ultimately need renal replacement therapy for fluid and electrolyte management. Echocardiogram shows left ventricular systolic function is relatively well- preserved with ejection fraction only mildly impaired at 45%. (2) Atrial fibrillation Current Visit: Yes Status: Acute Plan to address problem: Patient has atrial fibrillation which is likely chronic, was noted on a previous EKG 4 months ago. Rate control is optimal, but patient will benefit from long- term anticoagulation therapy. We have started low-dose Eliquis added to his oral antiplatelet therapy. (3) Coronary artery disease Current Visit: Yes Status: Acute Plan to address problem: Patient reports a history of coronary artery disease with coronary stent placement a year and a half ago when he lived in [place]. He has no chest pain or symptoms of coronary ischemia at this time, we will resume guideline directed medical therapy and risk factor modification. Due to his vague description of the timeline of his coronary intervention, and the absence of his outpatient records, we have elected to continue dual oral antiplatelet therapy until his records are available to properly determine duration of antiplatelet management. (4) Uncontrolled hypertension Current Visit: Yes Status: Acute Plan to address problem: Patient systolic blood pressure is now well controlled with the addition of Procardia XL 60 mg twice daily. Subjective Date of service: 08/24/21 Principal diagnosis: Fluid overload, end-stage renal failure, chronic atrial fibrillation Interval history: Patient is comfortable, no acute distress, no new cardiac complaints. 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 Objective Vital Signs Temp Pulse Resp BP BP Pulse Ox 08/24/21 09:08 107 H 08/24/21 08:47 98.5 F 91 H 130/86 95 08/24/21 06:38 98.5 F 111 H 16 159/93 99 08/24/21 06:13 95 H 148/102 08/24/21 02:20 92 H 08/24/21 01:01 115 H 18 142/71 99 08/24/21 00:39 98.4 F 85 16 107/52 98 08/24/21 00:22 90 19 106/62 94 08/23/21 23:00 97 08/23/21 22:45 98 H 08/23/21 20:53 98.9 F 98 H 24 127/83 97 08/23/21 19:00 100 H 08/23/21 15:26 98.5 F 100 H 20 127/83 98 08/23/21 15:25 98 H 29 H 98 - Physical Examination General: No Apparent Distress HEENT: Positive: PERRL Neck: Positive: neck supple Cardiac: Positive: irregularly irregular Lungs: Positive: Decreased Breath Sounds Neuro: Positive: Grossly Intact Abdomen: Positive: Soft Skin: Positive: Clear Extremities: Present: edema - Labs and Meds CBC 08/24/21 Range/Units 07:21 WBC 7.8 (4.5-11.0) K/mm3 RBC 3.49 L (3.65-5.03) M/mm3 Hgb 11.2 L (11.8-15.2) gm/dl Hct 33.9 L (35.5-45.6) % Plt Count 180 (140-440) K/mm3 Comprehensive Metabolic Panel 08/24/21 Range/Units 07:21 Sodium 139 (137-145) mmol/L Potassium 3.4 L (3.6-5.0) mmol/L Chloride 103.5 (98-107) mmol/L Carbon Dioxide 23 (22-30) mmol/L BUN 37 H (9-20) mg/dL Creatinine 4.5 H (0.8-1.3) mg/dL Glucose 126 H (75-100) mg/dL Calcium 8.3 L (8.4-10.2) mg/dL
--- NOTE | 2021-08-24 11:39 | Progress Note ---
Assessment and Plan Acute on CKD - CKD Stage5 with no improvement since admission, likely ESRD. Pt denies family h/o ESRD but says he had been told about poorly functional kidneys & suggestion for Dialysis a long time ago. 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 Will arrange for Permcath then HD HTN - F/u on meds CAD/AFib - S/p Stent a yr ago. Mx per Cardiology, Discussed with Cardiology, would hold Eliquis until after Permcath SOB/Pulm Congestion - On Bipap. Plan for UF on HD Subjective Date of service: 08/24/21 Principal diagnosis: Fluid overload, end-stage renal failure, chronic atrial fibrillation Interval history: Still SOB on Bipap Objective - Vital Signs Vital signs: Vital Signs - 12hr 08/24/21 08/24/21 08/24/21 00:22 00:39 01:01 Temperature 98.4 F Pulse Rate 90 85 115 H Respiratory 19 16 18 Rate Blood Pressure 107/52 142/71 Blood Pressure 106/62 [Right] O2 Sat by Pulse 94 98 99 Oximetry 08/24/21 08/24/21 08/24/21 02:20 06:13 06:38 Temperature 98.5 F Pulse Rate 92 H 95 H 111 H Respiratory 16 Rate Blood Pressure 159/93 Blood Pressure 148/102 [Right] O2 Sat by Pulse 99 Oximetry 08/24/21 08/24/21 08:47 09:08 Temperature 98.5 F Pulse Rate 91 H 107 H Respiratory Rate Blood Pressure 130/86 Blood Pressure [Right] O2 Sat by Pulse 95 Oximetry - General Appearance General appearance: other (Awake & alert) EENT: PERRL Neck: supple Respiratory: Present: Rales Cardiology: S1S2 Gastrointestinal: other (Soft) Integumentary: no rash, warm and dry Neurologic: alert and oriented x3 - Lab 08/24/21 07:21 08/24/21 07:21 Most recent lab results Calcium 8.3 mg/dL (8.4-10.2) L 08/24/21 07:21 Magnesium 2.20 mg/dL (1.7-2.3) 08/21/21 04:33 Medications & Allergies - Medications Allergies/Adverse Reactions: Allergies lisinopril Allergy (Verified 08/20/21 07:52) Coughing Home Medications: Home Medications Medication Instructions Recorded Confirmed Last Taken Type Amlodipine Besylate [Norvasc] 5 mg PO QDAY 08/20/21 08/20/21 Unknown History AtorvaSTATin [Lipitor] 40 mg PO QHS 08/20/21 08/20/21 Unknown History Doxazosin Mesylate [Cardura] 2 mg PO DAILY 08/20/21 08/20/21 Unknown History Furosemide [Lasix TAB] 80 mg PO QDAY 08/20/21 08/20/21 Unknown History ISOSORBIDE MONOnitrate [Imdur ER] 60 mg PO QDAY 08/20/21 08/20/21 Unknown History Rivaroxaban [Xarelto] 20 mg PO QDAY 08/20/21 08/20/21 Unknown History Sertraline [Zoloft] 50 mg PO QDAY 08/20/21 08/20/21 Unknown History Torsemide [Demadex] 20 mg PO QDAY 08/20/21 08/20/21 Unknown History allopurinoL [Zyloprim] 100 mg PO QDAY 08/20/21 08/20/21 Unknown History carvediloL [Coreg] 25 mg PO QDAY 08/20/21 08/20/21 Unknown History cloNIDine HCL [Clonidine HCl] 0.3 mg PO QDAY 08/20/21 08/20/21 Unknown History glipiZIDE [Glipizide ER] 2.5 mg PO QDAY 08/20/21 08/20/21 Unknown History Active Medications: Generic Name Dose Route Start Last Admin Trade Name Freq PRN Reason Stop Dose Admin Acetaminophen 650 mg 08/19/21 04:39 08/23/21 05:15 Acetaminophen 325 Mg Tab PO 650 mg Q4H PRN Administration Pain MILD(1-3)/Fever >100.5/DEL A PAZ Allopurinol 100 mg 08/20/21 14:00 08/24/21 09:08 Allopurinol 100 Mg Tab PO 100 mg QDAY ISHMAEL Administration Apixaban 2.5 mg 08/20/21 12:00 08/24/21 09:08 Apixaban 2.5 Mg Tab PO 2.5 mg Q12HR ISHMAEL Administration Protocol Aspirin 81 mg 08/20/21 12:00 08/24/21 09:08 Aspirin Ec 81 Mg Tab PO 81 mg QDAY ISHMAEL Administration Atorvastatin Calcium 40 mg 08/20/21 22:00 08/23/21 22:04 Atorvastatin 40 Mg Tab PO 40 mg QHS ISHMAEL Administration Carvedilol 25 mg 08/23/21 10:00 08/24/21 09:08 Carvedilol 25 Mg Tab PO 25 mg BID ISHMAEL Administration Clopidogrel Bisulfate 75 mg 08/20/21 12:00 08/23/21 10:01 Clopidogrel 75 Mg Tab PO 75 mg QDAY ISHMAEL Administration Doxazosin Mesylate 2 mg 08/20/21 14:00 08/24/21 09:08 Doxazosin 1 Mg Tab PO 2 mg QDAY ISHMAEL Administration Furosemide 40 mg 08/19/21 06:00 08/24/21 06:13 Furosemide 40 Mg/4 Ml Inj IV 40 mg BID@0600,1800 ISHMAEL Administration Hydralazine HCl 100 mg 08/20/21 09:00 08/24/21 06:12 Hydralazine 100 Mg Tab PO 100 mg Q8HR ISHMAEL Administration Isosorbide Mononitrate 30 mg 08/19/21 16:00 08/24/21 09:08 Isosorbide Mononitrate Er 30 Mg Tab PO 30 mg QDAY ISHMAEL Administration Morphine Sulfate 2 mg 08/19/21 04:39 Morphine 2 Mg/1 Ml Inj IV Q4H PRN Pain, Moderate (4-6) Morphine Sulfate 4 mg 08/19/21 04:39 Morphine 4 Mg/1 Ml Inj IV Q4H PRN Pain , Severe (7-10) Nifedipine 60 mg 08/20/21 12:00 08/24/21 09:08 Nifedipine Xl 60 Mg Tab PO 60 mg Q12HR ISHMAEL Administration Ondansetron HCl 4 mg 08/19/21 04:39 Ondansetron 4 Mg/2 Ml Inj IV Q8H PRN Nausea And Vomiting Ropinirole HCl 0.25 mg 08/23/21 22:00 08/23/21 22:07 Ropinirole 0.25 Mg Tab PO 0.25 mg QHS ISHMAEL Administration Sodium Chloride 10 ml 08/19/21 10:00 08/24/21 09:09 Sodium Chloride 0.9% 10 Ml Flush Syringe IV 10 ml BID ISHMAEL Administration Sodium Chloride 10 ml 08/19/21 04:39 08/21/21 18:39 Sodium Chloride 0.9% 10 Ml Flush Syringe IV 10 ml PRN PRN Administration LINE FLUSH Zolpidem Tartrate 10 mg 08/23/21 15:18 06/12/22 22:07 Zolpidem 5 Mg Tab PO 10 mg QHS PRN Administration Sleep
[2021-08-24] MEDS: CLOPIDOGREL 75 MG TAB PO SCH (11:50)
[2021-08-24] MEDS ORDERED: SODIUM CHLORIDE 0.9% 100 ML IV PRN (12:00)
--- NOTE | 2021-08-24 12:32 | Event Note ---
Date: 08/24/21 60-year-old male with progression to end-stage renal disease with request for PermCath placement. Noted triple therapy. Appreciate holding Eliquis. N.p.o. after midnight except sips of water with meds. Plan for PermCath tomorrow.
[2021-08-24 16:21] LABS: Hepatitis B Surface Antigen Non-Reactive (Negative); Hepatitis C Virus Antibody Non-Reactive (NonReactive)
--- NOTE | 2021-08-24 16:53 | Progress Note ---
Assessment and Plan 60-year-old -[place] male with known history of CHF, chronic kidney disease presenting to the emergency room complaining of progressive swelling of his lower extremities and shortness of breath which has been ongoing for the past 2 weeks. Work-up in the emergency room today EKG shows atrial fibrillation, chest x-ray was unremarkable. Labs reveals elevated BNP of 2023, potassium 3.3. BUN of 47 and creatinine of 4.7 Patient was admitted for CHF exacerbation Assessment Acute systolic CHF exacerbation EF 40-45% Atrial fibrillation-possibly chronic CHRISTIANO on Chronic kidney disease, likely progressed to ESRD Hypokalemia Morbid obesity with sleep apnea Hypertension, uncontrolled Plan: 08/19 Patient was admitted for CHF exacerbation, 2D echo showed EF of 45% Cardiology consulted, continue diuresis, follow cardiology recommendation 08/20 -- Continue diuretics, replete electrolytes as needed -- Renal function slightly improved today, continue to follow BMP -- BP still remains uncontrolled and SBP at 180s -we will continue to adjust medications, will avoid nephrotoxins -- Continue to follow clinically follow nephrology and cardiology recommendation -- Patient placed on anticoagulation with Eliquis -- Continue CPAP at bedtime 08/21: Creatinine continue to trend up, continue to follow. Add ambien I at bedtime for sleep 08/22: Cr cont to trend up, discussed with nephrology. plan to start HD likely from Wednesday 08/23: cont to monitor BMP, likely to start HD from next week 08/24: Plan to initiate hemodialysis, consulted vascular to place PermCath -which is scheduled for tomorrow, n.p.o. after midnight Subjective Date of service: 08/24/21 Principal diagnosis: Fluid overload, end-stage renal failure, chronic atrial fibrillation Interval history: Patient seen and examined. Medical records and medication list reviewed. No acute event overnight noted by the RN. Patient continued to complains of difficulty breathing Renal function continues to remain coarse without any improvement Discussed plan of care at bedside with patient. Objective - Exam Narrative Exam: GENERAL: well-developed. [place] male lying on bed appeared to be in no discomfort. HEENT: Normocephalic. Atraumatic. No conjunctival congestion or icterus. Patient has moist mucous membranes. NECK: Supple. Trachea midline. CHEST/LUNGS: Diminished breath sounds auscultated bilaterally, breathing nonlabored. No wheezes HEART/CARDIOVASCULAR: Regular in rate and rhythm. S1 and S2 positive. ABDOMEN: Abdomen is soft, nontender. Patient has normal bowel sounds. SKIN: There is no rash. Warm and dry. NEURO: No focal motor deficit. Follows command. MUSCULOSKELETAL: No joint effusion or tenderness. EXTRIMITY: 1+ edema, no cyanosis or clubbing. PSYCH: Cooperative. - Constitutional Vitals: Vital Signs - 12hr 08/24/21 08/24/21 08/24/21 06:13 06:38 08:47 Temperature 98.5 F 98.5 F Pulse Rate 95 H 111 H 91 H Respiratory 16 Rate Blood Pressure 159/93 130/86 Blood Pressure 148/102 [Right] O2 Sat by Pulse 99 95 Oximetry 08/24/21 08/24/21 08/24/21 09:08 11:00 14:00 Temperature Pulse Rate 107 H 103 H Respiratory Rate Blood Pressure Blood Pressure [Right] O2 Sat by Pulse 97 Oximetry 08/24/21 16:39 Temperature 98.7 F Pulse Rate 103 H Respiratory Rate Blood Pressure 122/70 Blood Pressure [Right] O2 Sat by Pulse 95 Oximetry - Labs CBC & Chem 7: 08/24/21 07:21 08/24/21 07:21 Labs: Abnormal lab results 08/24/21 08/24/21 Range/Units 07:21 07:21 RBC 3.49 L (3.65-5.03) M/mm3 Hgb 11.2 L (11.8-15.2) gm/dl Hct 33.9 L (35.5-45.6) % MCV 97 H (84-94) fl RDW 15.3 H (13.2-15.2) % Potassium 3.4 L (3.6-5.0) mmol/L BUN 37 H (9-20) mg/dL Creatinine 4.5 H (0.8-1.3) mg/dL Glucose 126 H (75-100) mg/dL Calcium 8.3 L (8.4-10.2) mg/dL HEART Score - HEART Score Troponin: Troponin T 0.022 ng/mL (0.00-0.029) 08/18/21 17:25
[2021-08-24] MEDS: rOPINIRole 0.25 MG TAB PO SCH (21:56)
[2021-08-24] MEDS: ZOLPIDEM 5 MG TAB PO PRN (22:09)
[2021-08-25 04:11] LABS: Hemoglobin 10.7 gm/dl (11.8-15.2); Mean Corpuscular HGB Conc 34 % (32-34); Mean Corpuscular Volume 97 fl (84-94); Platelet Count 175 K/mm3 (140-440); Red Blood Count 3.31 M/mm3 (3.65-5.03); Red Cell Distribution Width 14.9 % (13.2-15.2)
[2021-08-25 04:27] LABS: Albumin 3.3 g/dL (3.9-5)
[2021-08-25 05:51] LABS: Anisocytosis 1+; Basophils % (Manual) 0 % (0.0-1.8); Platelet Estimate Consistent w Auto; Total Cells Counted 100
[2021-08-25] MEDS: FUROSEMIDE 40 MG/4 ML INJ IV SCH ×2 (06:13→17:40)
[2021-08-25] MEDS: hydrALAZINE 100 MG TAB PO SCH ×3 (06:13→22:18)
[2021-08-25] MEDS ORDERED: SODIUM CHLORIDE 0.9% 250ML 250 ML ONE (08:39)
[2021-08-25] MEDS ORDERED: HEPARIN/NS 5000 UNIT/500ML 500 ML IR ONE (09:16)
[2021-08-25] MEDS ORDERED: HEPARIN 10,000 UNITS/10 ML VIAL ONE (09:16)
[2021-08-25] MEDS ORDERED: ceFAZolin/Water 2 GM/20 ML 2 GM/20 ML SYRINGE IV ONE (09:16)
[2021-08-25] MEDS ORDERED: LIDOCAINE 2%/EPINEPHRINE 1:200,000 VIAL (20 ML) INFILTRATI ONE ×2 (09:16→10:00)
[2021-08-25] MEDS ORDERED: fentaNYL 100 MCG/2 ML INJ ONE (09:41)
[2021-08-25] MEDS ORDERED: MIDAZOLAM 2 MG/2 ML INJ ONE (09:41)
[2021-08-25] MEDS: carvediloL 25 MG TAB PO SCH ×2 (10:00→22:18)
[2021-08-25] MEDS: NIFEdipine XL 60 MG TAB PO SCH ×2 (10:00→22:18)
--- NOTE | 2021-08-25 10:07 | Progress Note ---
Assessment and Plan Assessment and plan: 60-year-old -[place] male with known history of CHF, chronic kidney disease presenting to the emergency room complaining of progressive swelling of his lower extremities and shortness of breath which has been ongoing for the past 2 weeks. Work-up in the emergency room today EKG shows atrial fibrillation, chest x-ray was unremarkable. Labs reveals elevated BNP of 2022, potassium 3.3. BUN of 47 and creatinine of 4.7 Patient was admitted for CHF exacerbation Nephrology decided to initiate hemodialysis Vascular consulted for right internal jugular tunneled cuffed hemodialysis catheter placement Followed by hemodialysis Assessment --Acute systolic CHF exacerbation EF 40-45% Continue antifailure medications, cardiology following --Atrial fibrillation-possibly chronic; Low-dose Eliquis[resume post hemodialysis catheter placement if okay with vascular] Continue current cardiac medications --CHRISTIANO on Chronic kidney disease, likely progressed to ESRD; s/p hemodialysis catheter placement followed by hemodialysis Vascular input noted and appreciated --Hypokalemia; closely monitor electrolytes --Morbid obesity with sleep apnea; Need to follow electrotyper apprentice for sleep study CPAP BiPAP upon discharge --Hypertension; uncontrolled Continue current antihypertensives and adjust as needed Follow consultants evaluation and recommendations Possible outpatient HD placement per case management prior to discharge Closely monitor the patient and adjust management as needed Plan of care reviewed with the patient and his nurse as well as the case management Plan: 08/19 Patient was admitted for CHF exacerbation, 2D echo showed EF of 45% Cardiology consulted, continue diuresis, follow cardiology recommendation 08/20 -- Continue diuretics, replete electrolytes as needed -- Renal function slightly improved today, continue to follow BMP -- BP still remains uncontrolled and SBP at 180s -we will continue to adjust me dications, will avoid nephrotoxins -- Continue to follow clinically follow nephrology and cardiology recommendation -- Patient placed on anticoagulation with Eliquis -- Continue CPAP at bedtime 08/21: Creatinine continue to trend up, continue to follow. Add ambien I at bedtime for sleep 08/22: Cr cont to trend up, discussed with nephrology. plan to start HD likely from Wednesday 08/23: cont to monitor BMP, likely to start HD from next week 08/24: Plan to initiate hemodialysis, consulted vascular to place PermCath -which is scheduled for tomorrow, n.p.o. after midnight 08/25/2021 right internal jugular tunneled cuffed hemodialysis catheter placement today Patient received hemodialysis History Interval history: I have seen and examined the patient at the bedside Patient's chart and medications reviewed No new events reported by the nursing Patient underwent hemodialysis catheter placement followed by hemodialysis Patient tolerated the procedure well Vital signs noted Hospitalist Physical - Constitutional Vitals: Temp Pulse Resp BP Pulse Ox 98.4 F 90 18 127/78 98 08/25/21 04:24 08/25/21 04:24 08/25/21 04:24 08/25/21 04:24 08/25/21 04:24 General appearance: Present: no acute distress, well-nourished, obese (Morbidly obese) - EENT Eyes: Present: PERRL, EOM intact - Neck Neck: Present: supple, normal ROM - Respiratory Respiratory effort: normal Respiratory: bilateral: diminished, negative: rales, rhonchi, wheezing - Cardiovascular Rhythm: regular Heart Sounds: Present: S1 & S2 - Extremities Extremities: no ischemia, No edema - Abdominal General gastrointestinal: soft, non-tender, non-distended, normal bowel sounds - Integumentary Integumentary: Present: clear, warm - Psychiatric Psychiatric: appropriate mood/affect, cooperative - Neurologic Neurologic: CNII-XII intact, moves all extremities HEART Score - HEART Score Troponin: Troponin T 0.022 ng/mL (0.00-0.029) 08/18/21 17:25 Results - Labs CBC & Chem 7: 08/25/21 03:56 08/25/21 03:56 Labs: Laboratory Last Values WBC 6.8 K/mm3 (4.5-11.0) 08/25/21 03:56 RBC 3.31 M/mm3 (3.65-5.03) L 08/25/21 03:56 Hgb 10.7 gm/dl (11.8-15.2) L 08/25/21 03:56 Hct 32.0 % (35.5-45.6) L 08/25/21 03:56 MCV 97 fl (84-94) H 08/25/21 03:56 MCH 32 pg (28-32) 08/25/21 03:56 MCHC 34 % (32-34) 08/25/21 03:56 RDW 14.9 % (13.2-15.2) 08/25/21 03:56 Plt Count 175 K/mm3 (140-440) 08/25/21 03:56 Swift % (Auto) Molding Engineer 08/25/21 03:56 Eos % (Auto) 2.4 % (0.0-4.3) 08/18/21 11:45 Swift # (Auto) 0.7 K/mm3 (0.0-0.8) 08/18/21 11:45 Eos # (Auto) 0.2 K/mm3 (0.0-0.4) 08/18/21 11:45 Baso # (Auto) 0.3 K/mm3 (0.0-0.1) H 08/18/21 11:45 Add Manual Diff Complete 08/25/21 03:56 Total Counted 100 08/25/21 03:56 Seg Neutrophils % 69.8 % (40.0-70.0) 08/18/21 11:45 Seg Neuts % (Manual) 74.0 % (40.0-70.0) H 08/25/21 03:56 Band Neutrophils % 0 % 08/25/21 03:56 Lymphocytes % (Manual) 14.0 % (13.4-35.0) 08/25/21 03:56 Reactive Lymphs % (Man) 0 % 08/25/21 03:56 Monocytes % (Manual) 11.0 % (0.0-7.3) H 08/25/21 03:56 Eosinophils % (Manual) 1.0 % (0.0-4.3) 08/25/21 03:56 Basophils % (Manual) 0 % (0.0-1.8) 08/25/21 03:56 Metamyelocytes % 0 % 08/25/21 03:56 Myelocytes % 0 % 08/25/21 03:56 Promyelocytes % 0 % 08/25/21 03:56 Blast Cells % 0 % 08/25/21 03:56 Nucleated RBC % Not Reportable 08/25/21 03:56 Seg Neutrophils # 5.2 K/mm3 (1.8-7.7) 08/18/21 11:45 Seg Neutrophils # Man 5.0 K/mm3 (1.8-7.7) 08/25/21 03:56 Band Neutrophils # 0.0 K/mm3 08/25/21 03:56 Lymphocytes # (Manual) 1.0 K/mm3 (1.2-5.4) L 08/25/21 03:56 Abs React Lymphs (Man) 0.0 K/mm3 08/25/21 03:56 Monocytes # (Manual) 0.7 K/mm3 (0.0-0.8) 08/25/21 03:56 Eosinophils # (Manual) 0.1 K/mm3 (0.0-0.4) 08/25/21 03:56 Basophils # (Manual) 0.0 K/mm3 (0.0-0.1) 08/25/21 03:56 Metamyelocytes # 0.0 K/mm3 08/25/21 03:56 Myelocytes # 0.0 K/mm3 08/25/21 03:56 Promyelocytes # 0.0 K/mm3 08/25/21 03:56 Blast Cells # 0.0 K/mm3 08/25/21 03:56 WBC Morphology Not Reportable 08/25/21 03:56 Hypersegmented Neuts Not Reportable 08/25/21 03:56 Hyposegmented Neuts Not Reportable 08/25/21 03:56 Hypogranular Neuts Not Reportable 08/25/21 03:56 Smudge Cells Not Reportable 08/25/21 03:56 Toxic Granulation Not Reportable 08/25/21 03:56 Toxic Vacuolation Not Reportable 08/25/21 03:56 Dohle Bodies Not Reportable 08/25/21 03:56 Pelger-Huet Anomaly Not Reportable 08/25/21 03:56 Sharath Rods Not Reportable 08/25/21 03:56 Platelet Estimate Consistent w auto 08/25/21 03:56 Clumped Platelets Not Reportable 08/25/21 03:56 Plt Clumps, EDTA Not Reportable 08/25/21 03:56 Large Platelets Not Reportable 08/25/21 03:56 Giant Platelets Not Reportable 08/25/21 03:56 Platelet Satelliting Not Reportable 08/25/21 03:56 Plt Morphology Comment Not Reportable 08/25/21 03:56 RBC Morphology Not Reportable 08/25/21 03:56 Dimorphic RBCs Not Reportable 08/25/21 03:56 Polychromasia Not Reportable 08/25/21 03:56 Hypochromasia Not Reportable 08/25/21 03:56 Poikilocytosis Not Reportable 08/25/21 03:56 Anisocytosis 1+ 08/25/21 03:56 Microcytosis Not Reportable 08/25/21 03:56 Macrocytosis Not Reportable 08/25/21 03:56 Spherocytes Not Reportable 08/25/21 03:56 Pappenheimer Bodies Not Reportable 08/25/21 03:56 Sickle Cells Not Reportable 08/25/21 03:56 Target Cells Not Reportable 08/25/21 03:56 Tear Drop Cells Not Reportable 08/25/21 03:56 Ovalocytes Not Reportable 08/25/21 03:56 Helmet Cells Not Reportable 08/25/21 03:56 Bailey-[place] Bodies Not Reportable 08/25/21 03:56 Irvine Rings Not Reportable 08/25/21 03:56 Royal Cells Not Reportable 08/25/21 03:56 Bite Cells Not Reportable 08/25/21 03:56 Crenated Cell Not Reportable 08/25/21 03:56 Elliptocytes Not Reportable 08/25/21 03:56 Acanthocytes (Spur) Not Reportable 08/25/21 03:56 Rouleaux Not Reportable 08/25/21 03:56 Hemoglobin C Crystals Not Reportable 08/25/21 03:56 Schistocytes Not Reportable 08/25/21 03:56 Malaria parasites Not Reportable 08/25/21 03:56 Delfino Bodies Not Reportable 08/25/21 03:56 Hem Pathologist Commnt No 08/25/21 03:56 PT 14.1 Sec. (12.2-14.9) 08/20/21 12:39 INR 0.98 (0.87-1.13) 08/20/21 12:39 APTT 29.7 Sec. (24.2-36.6) 08/20/21 12:39 Sodium 138 mmol/L (137-145) 08/25/21 03:56 Potassium 3.6 mmol/L (3.6-5.0) 08/25/21 03:56 Chloride 100.2 mmol/L (98-107) 08/25/21 03:56 Carbon Dioxide 23 mmol/L (22-30) 08/25/21 03:56 Anion Gap 18 mmol/L 08/25/21 03:56 BUN 42 mg/dL (9-20) H 08/25/21 03:56 Creatinine 4.6 mg/dL (0.8-1.3) H 08/25/21 03:56 Estimated GFR 13 ml/min 08/25/21 03:56 BUN/Creatinine Ratio 9 % 08/25/21 03:56 Glucose 116 mg/dL (75-100) H 08/25/21 03:56 Calcium 8.0 mg/dL (8.4-10.2) L 08/25/21 03:56 Phosphorus 4.50 mg/dL (2.5-4.5) 08/25/21 03:56 Magnesium 2.30 mg/dL (1.7-2.3) 08/25/21 03:56 Total Bilirubin 0.50 mg/dL (0.1-1.2) 08/25/21 03:56 AST 16 units/L (5-40) 08/25/21 03:56 ALT 9 units/L (7-56) 08/25/21 03:56 Alkaline Phosphatase 79 units/L (35-129) 08/25/21 03:56 Troponin T 0.022 ng/mL (0.00-0.029) 08/18/21 17:25 NT-Pro-B Natriuret Pep 2023 pg/mL (0-900) H 08/18/21 11:45 Total Protein 6.4 g/dL (6.3-8.2) 08/25/21 03:56 Albumin 3.3 g/dL (3.9-5) L 08/25/21 03:56 Albumin/Globulin Ratio 1.1 % 08/25/21 03:56 PTH Intact 350.9 pg/mL (15-65) H 08/20/21 05:21 Hepatitis A IgM Ab Non-reactive (NonReactive) 08/24/21 15:10 Hep Bs Antigen Non-reactive (Negative) 08/24/21 15:10 Hep B Core IgM Ab Non-reactive (NonReactive) 08/24/21 15:10 Hepatitis C Antibody Non-reactive (NonReactive) 08/24/21 15:10 Evangelista/IV: Voiding Method Urinal Active Medications - Current Medications Current Medications: Generic Name Dose Route Start Last Admin Trade Name Freq PRN Reason Stop Dose Admin Acetaminophen 650 mg 08/19/21 04:39 08/23/21 05:15 Acetaminophen 325 Mg Tab PO 650 mg Q4H PRN Administration Pain MILD(1-3)/Fever >100.5/DE LA PAZ Allopurinol 100 mg 08/20/21 14:00 08/24/21 09:08 Allopurinol 100 Mg Tab PO 100 mg QDAY ISHMAEL Administration Aspirin 81 mg 08/20/21 12:00 08/24/21 09:08 Aspirin Ec 81 Mg Tab PO 81 mg QDAY ISHMAEL Administration Atorvastatin Calcium 40 mg 08/20/21 22:00 08/24/21 21:56 Atorvastatin 40 Mg Tab PO 40 mg QHS ISHMAEL Administration Carvedilol 25 mg 08/23/21 10:00 08/24/21 21:56 Carvedilol 25 Mg Tab PO 25 mg BID ISHMAEL Administration Clopidogrel Bisulfate 75 mg 08/20/21 12:00 08/24/21 11:50 Clopidogrel 75 Mg Tab PO 75 mg QDAY ISHMAEL Administration Doxazosin Mesylate 2 mg 08/20/21 14:00 08/24/21 09:08 Doxazosin 1 Mg Tab PO 2 mg QDAY ISHMAEL Administration Furosemide 40 mg 08/19/21 06:00 08/25/21 06:13 Furosemide 40 Mg/4 Ml Inj IV 40 mg BID@0600,1800 ISHMAEL Administration Hydralazine HCl 100 mg 08/20/21 09:00 08/25/21 06:13 Hydralazine 100 Mg Tab PO 100 mg Q8HR ISHMAEL Administration Sodium Chloride 100 mls @ 999 mls/hr 08/24/21 12:00 Nacl 0.9% IV KIMBERLY PRN Hypotension Isosorbide Mononitrate 30 mg 08/19/21 16:00 08/24/21 09:08 Isosorbide Mononitrate Er 30 Mg Tab PO 30 mg QDAY ISHMAEL Administration Morphine Sulfate 2 mg 08/19/21 04:39 Morphine 2 Mg/1 Ml Inj IV Q4H PRN Pain, Moderate (4-6) Morphine Sulfate 4 mg 08/19/21 04:39 Morphine 4 Mg/1 Ml Inj IV Q4H PRN Pain , Severe (7-10) Nifedipine 60 mg 08/20/21 12:00 08/24/21 21:56 Nifedipine Xl 60 Mg Tab PO 60 mg Q12HR ISHMAEL Administration Ondansetron HCl 4 mg 08/19/21 04:39 Ondansetron 4 Mg/2 Ml Inj IV Q8H PRN Nausea And Vomiting Ropinirole HCl 0.25 mg 08/23/21 22:00 08/24/21 21:56 Ropinirole 0.25 Mg Tab PO 0.25 mg QHS ISHMAEL Administration Sodium Chloride 10 ml 08/19/21 10:00 08/24/21 21:56 Sodium Chloride 0.9% 10 Ml Flush Syringe IV 10 ml BID ISHMAEL Administration Sodium Chloride 10 ml 08/19/21 04:39 08/21/21 18:39 Sodium Chloride 0.9% 10 Ml Flush Syringe IV 10 ml PRN PRN Administration LINE FLUSH Zolpidem Tartrate 10 mg 08/23/21 15:18 08/24/21 22:09 Zolpidem 5 Mg Tab PO 10 mg QHS PRN Administration Sleep
--- NOTE | 2021-08-25 10:38 | Operative Report ---
Operative Report Operative Report: EXAM: 1. Ultrasound-guided puncture of the right internal jugular vein 2. Fluoroscopic-guided placement of a right internal jugular tunneled cuffed hemodialysis catheter. DATE: 08/25/2021 INDICATION: End-stage renal disease requiring hemodialysis access. MEDICATIONS: Please see nursing report for full details. DEVICES: 27 cm tip to cuff 15 Fr dual lumen hemodialysis catheter COLLECTION CARD CLERK: KEYON DUMONT MD CONTRAST: None PROCEDURE: The risks, benefits, and alternatives were discussed and informed consent was obtained. The patient was transported to the angiography suite in satisfactory/stable condition and was transported onto the angiography table. The patient's right internal jugular vein was assessed with ultrasound and determined to be patent prior to procedure. The patient was prepped and draped in a sterile fashion. The puncture site was anesthetized. Under sonographic guidance, the right internal jugular vein was punctured with a 21-gauge micropuncture needle and a 0.018 inch wire was advanced into the inferior vena cava. The micropuncture needle was exchanged for a transitional dilator and the wire was retracted into the right atrium to carla intravascular distance. The wire and inner dilator were removed. 0.035 inch wire was advanced through the transitional dilator into the inferior vena cava. A suitable exit site was identified on the patient's chest inferior and lateral to the venotomy. The site was anesthetized with local anesthetic and the track was anesthetized. Dermatotomy was made. The PermCath was attached to the tunneling device and tunneled between the dermatotomy to the venotomy. Over the 0.035 inch wire, serial dilatation was performed with ultimate placement of a peel-away sheath. The catheter was advanced through the peel- away sheath after the wire was removed and positioned centrally under fluoroscopic guidance. The peel-away sheath was removed. 4-0 Vicryl suture was used to close the venotomy and Dermabond was then applied. 2-0 Ethilon suture was used to secure the catheter at the dermatotomy. The catheter was charged with heparin 1000 units/mL of space. Sterile dressing and Biopatch applied. The patient was transferred from the angiography suite back to the floor in stable condition. FINDINGS: 1. Excellent flow was obtained through the dialysis catheter with 20 mL syringes. 2. The catheter tip is in the right atrium. IMPRESSION: 1. Successful ultrasound and fluoroscopically guided placement of a right internal jugular tunneled cuffed hemodialysis catheter.
--- NOTE | 2021-08-25 12:38 | Progress Note ---
Assessment and Plan Acute on CKD/?ESRD - HD today via [facility] Permcat. Repeat HD in am & f/u labs HTN - F/u on meds CAD/AFib - S/p Stent a yr ago. Mx per Cardiology SOB/Pulm Congestion - UF on HD Subjective Date of service: 08/25/21 Principal diagnosis: Fluid overload, end-stage renal failure, chronic atrial fibrillation Objective - Vital Signs Vital signs: Vital Signs - 12hr 08/25/21 08/25/21 04:24 11:00 Temperature 98.4 F Pulse Rate 90 Respiratory 18 Rate Blood Pressure 127/78 O2 Sat by Pulse 98 97 Oximetry - General Appearance General appearance: other (Awake & responsive) EENT: PERRL Neck: no JVD Respiratory: Present: Other (Good air entry) Cardiology: regular, S1S2 Gastrointestinal: other (Soft) Integumentary: warm and dry Neurologic: no focal deficit Psychiatric: mood/affect appropriate - Lab 08/25/21 03:56 08/25/21 03:56 Most recent lab results Calcium 8.0 mg/dL (8.4-10.2) L 08/25/21 03:56 Phosphorus 4.50 mg/dL (2.5-4.5) 08/25/21 03:56 Magnesium 2.30 mg/dL (1.7-2.3) 08/25/21 03:56 Medications & Allergies - Medications Allergies/Adverse Reactions: Allergies lisinopril Allergy (Verified 08/20/21 07:52) Coughing Home Medications: Home Medications Medication Instructions Recorded Confirmed Last Taken Type Amlodipine Besylate [Norvasc] 5 mg PO QDAY 08/20/21 08/20/21 Unknown History AtorvaSTATin [Lipitor] 40 mg PO QHS 08/20/21 08/20/21 Unknown History Doxazosin Mesylate [Cardura] 2 mg PO DAILY 08/20/21 08/20/21 Unknown History Furosemide [Lasix TAB] 80 mg PO QDAY 08/20/21 08/20/21 Unknown History ISOSORBIDE MONOnitrate [Imdur ER] 60 mg PO QDAY 08/20/21 08/20/21 Unknown History Rivaroxaban [Xarelto] 20 mg PO QDAY 08/20/21 08/20/21 Unknown History Sertraline [Zoloft] 50 mg PO QDAY 08/20/21 08/20/21 Unknown History Torsemide [Demadex] 20 mg PO QDAY 08/20/21 08/20/21 Unknown History allopurinoL [Zyloprim] 100 mg PO QDAY 08/20/21 08/20/21 Unknown History carvediloL [Coreg] 25 mg PO QDAY 08/20/21 08/20/21 Unknown History cloNIDine HCL [Clonidine HCl] 0.3 mg PO QDAY 08/20/21 08/20/21 Unknown History glipiZIDE [Glipizide ER] 2.5 mg PO QDAY 08/20/21 08/20/21 Unknown History Active Medications: Generic Name Dose Route Start Last Admin Trade Name Freq PRN Reason Stop Dose Admin Acetaminophen 650 mg 08/19/21 04:39 08/23/21 05:15 Acetaminophen 325 Mg Tab PO 650 mg Q4H PRN Administration Pain MILD(1-3)/Fever >100.5/DE LA PAZ Allopurinol 100 mg 08/20/21 14:00 08/24/21 09:08 Allopurinol 100 Mg Tab PO 100 mg QDAY ISHMAEL Administration Aspirin 81 mg 08/20/21 12:00 08/24/21 09:08 Aspirin Ec 81 Mg Tab PO 81 mg QDAY ISHMAEL Administration Atorvastatin Calcium 40 mg 08/20/21 22:00 08/24/21 21:56 Atorvastatin 40 Mg Tab PO 40 mg QHS ISHMAEL Administration Carvedilol 25 mg 08/23/21 10:00 08/24/21 21:56 Carvedilol 25 Mg Tab PO 25 mg BID ISHMAEL Administration Clopidogrel Bisulfate 75 mg 08/20/21 12:00 08/24/21 11:50 Clopidogrel 75 Mg Tab PO 75 mg QDAY ISHMAEL Administration Doxazosin Mesylate 2 mg 08/20/21 14:00 08/24/21 09:08 Doxazosin 1 Mg Tab PO 2 mg QDAY ISHMAEL Administration Furosemide 40 mg 08/19/21 06:00 08/25/21 06:13 Furosemide 40 Mg/4 Ml Inj IV 40 mg BID@0600,1800 ISHMAEL Administration Hydralazine HCl 100 mg 08/20/21 09:00 08/25/21 06:13 Hydralazine 100 Mg Tab PO 100 mg Q8HR ISHMAEL Administration Sodium Chloride 100 mls @ 999 mls/hr 08/24/21 12:00 Nacl 0.9% IV KIMBERLY PRN Hypotension Isosorbide Mononitrate 30 mg 08/19/21 16:00 08/24/21 09:08 Isosorbide Mononitrate Er 30 Mg Tab PO 30 mg QDAY ISHMAEL Administration Morphine Sulfate 2 mg 08/19/21 04:39 Morphine 2 Mg/1 Ml Inj IV Q4H PRN Pain, Moderate (4-6) Morphine Sulfate 4 mg 08/19/21 04:39 Morphine 4 Mg/1 Ml Inj IV Q4H PRN Pain , Severe (7-10) Nifedipine 60 mg 08/20/21 12:00 08/24/21 21:56 Nifedipine Xl 60 Mg Tab PO 60 mg Q12HR ISHMAEL Administration Ondansetron HCl 4 mg 08/19/21 04:39 Ondansetron 4 Mg/2 Ml Inj IV Q8H PRN Nausea And Vomiting Ropinirole HCl 0.25 mg 08/23/21 22:00 08/24/21 21:56 Ropinirole 0.25 Mg Tab PO 0.25 mg QHS ISHMAEL Administration Sodium Chloride 10 ml 08/19/21 10:00 08/24/21 21:56 Sodium Chloride 0.9% 10 Ml Flush Syringe IV 10 ml BID ISHMAEL Administration Sodium Chloride 10 ml 08/19/21 04:39 08/21/21 18:39 Sodium Chloride 0.9% 10 Ml Flush Syringe IV 10 ml PRN PRN Administration LINE FLUSH Zolpidem Tartrate 10 mg 08/23/21 15:18 08/24/21 22:09 Zolpidem 5 Mg Tab PO 10 mg QHS PRN Administration Sleep
[2021-08-25] MEDS ORDERED: SODIUM CHLORIDE 0.9% 100 ML IV PRN ×3 (12:39→18:02)
--- NOTE | 2021-08-25 12:50 | Progress Note ---
Assessment and Plan - Patient Problems (1) Edema Current Visit: Yes Status: Acute Plan to address problem: Patient presents with shortness of breath and lower extremity edema. Symptoms suggest fluid overload, which may be noncardiogenic in the setting of end-stage renal failure. His creatinine is severely elevated 4.5-4.7. He is awaiting permacath placement to start hemodialysis. Echocardiogram shows left ventricular systolic function is relatively well- preserved with ejection fraction only mildly impaired at 45%. (2) Atrial fibrillation Current Visit: Yes Status: Acute Plan to address problem: Patient has atrial fibrillation which is likely chronic, was noted on a previous EKG 4 months ago. Rate control is optimal, but patient will benefit from long- term anticoagulation therapy. We have started low-dose Eliquis added to his oral antiplatelet therapy. (3) Coronary artery disease Current Visit: Yes Status: Acute Plan to address problem: Patient reports a history of coronary artery disease with coronary stent placement a year and a half ago when he lived in [place]. He has no chest pain or symptoms of coronary ischemia at this time, we will resume guideline directed medical therapy and risk factor modification. Due to his vague description of the timeline of his coronary intervention, and the absence of his outpatient records, we have elected to continue dual oral antiplatelet therapy until his records are available to properly determine duration of antiplatelet management. (4) Uncontrolled hypertension Current Visit: Yes Status: Acute Plan to address problem: Patient systolic blood pressure is now well controlled with the addition of Procardia XL 60 mg twice daily. Subjective Date of service: 08/25/21 Principal diagnosis: Fluid overload, end-stage renal failure, chronic atrial fibrillation Interval history: Patient is comfortable no acute distress, no new cardiac events reported. He is planned for permacath placement in anticipation of hemodialysis. Objective Vital Signs Temp Pulse Resp BP Pulse Ox 08/25/21 11:00 97 08/25/21 04:24 98.4 F 90 18 127/78 98 08/24/21 23:47 98.9 F 93 H 18 125/82 98 08/24/21 22:33 97 08/24/21 19:42 99.2 F 101 H 20 143/78 97 08/24/21 16:39 98.7 F 103 H 122/70 95 08/24/21 14:00 103 H - Physical Examination General: No Apparent Distress HEENT: Positive: PERRL Neck: Positive: neck supple Cardiac: Positive: Reg Rate and Rhythm Lungs: Positive: Decreased Breath Sounds Neuro: Positive: Grossly Intact Abdomen: Positive: Soft Skin: Positive: Clear Extremities: Present: edema - Labs and Meds Cardiac Enzymes 08/25/21 Range/Units 03:56 AST 16 (5-40) units/L CBC 08/25/21 Range/Units 03:56 WBC 6.8 (4.5-11.0) K/mm3 RBC 3.31 L (3.65-5.03) M/mm3 Hgb 10.7 L (11.8-15.2) gm/dl Hct 32.0 L (35.5-45.6) % Plt Count 175 (140-440) K/mm3 Comprehensive Metabolic Panel 08/25/21 Range/Units 03:56 Sodium 138 (137-145) mmol/L Potassium 3.6 (3.6-5.0) mmol/L Chloride 100.2 (98-107) mmol/L Carbon Dioxide 23 (22-30) mmol/L BUN 42 H (9-20) mg/dL Creatinine 4.6 H (0.8-1.3) mg/dL Glucose 116 H (75-100) mg/dL Calcium 8.0 L (8.4-10.2) mg/dL AST 16 (5-40) units/L ALT 9 (7-56) units/L Alkaline Phosphatase 79 (35-129) units/L Total Protein 6.4 (6.3-8.2) g/dL Albumin 3.3 L (3.9-5) g/dL
--- NOTE | 2021-08-25 13:55 | XRay Report ---
CHEST 1 VIEW 08/25/2021 12:28 PM INDICATION / CLINICAL INFORMATION: for outpatient HD. COMPARISON: 08/18/2021 FINDINGS: SUPPORT DEVICES: Right IJ central line tip projects at the cavoatrial junction. HEART / MEDIASTINUM: Mild cardiomegaly. LUNGS / PLEURA: Mild interstitial prominence. No pneumothorax. ADDITIONAL FINDINGS: No significant additional findings. IMPRESSION: 1. Mild cardiomegaly with mild interstitial edema. Signer Name: Gama Mcknight MD Signed: 08/25/2021 1:50 PM Workstation Name: [id number]
[2021-08-25 14:48] LABS: Alanine Aminotransferase 9 units/L (7-56); Albumin 3.3 g/dL (3.9-5)
[2021-08-25 14:54] LABS: Bilirubin,Direct < 0.2 mg/dL (0-0.2)
[2021-08-25] MEDS: CLOPIDOGREL 75 MG TAB PO SCH (17:39)
[2021-08-25] MEDS: allopurinoL 100 MG TAB PO SCH (17:39)
[2021-08-25] MEDS: DOXAZOSIN 1 MG TAB PO SCH (17:39)
[2021-08-25] MEDS: ASPIRIN EC 81 MG TAB PO SCH (17:39)
[2021-08-25] MEDS: rOPINIRole 0.25 MG TAB PO SCH (22:18)
[2021-08-26] MEDS: hydrALAZINE 100 MG TAB PO SCH ×3 (06:16→21:20)
[2021-08-26] MEDS: FUROSEMIDE 40 MG/4 ML INJ IV SCH ×2 (06:16→17:51)
[2021-08-26 06:22] LABS: Calcium 8.3 mg/dL (8.4-10.2); Hematocrit 31.4 % (35.5-45.6); Hemoglobin 10.6 gm/dl (11.8-15.2); Mean Corpuscular HGB Conc 34 % (32-34); Mean Corpuscular Volume 97 fl (84-94); Platelet Count 173 K/mm3 (140-440); Red Blood Count 3.24 M/mm3 (3.65-5.03); Red Cell Distribution Width 14.8 % (13.2-15.2)
[2021-08-26 10:34] LABS: Anisocytosis 1+; Basophils % (Manual) 0 % (0.0-1.8); Eosinophils % (Manual) 0 % (0.0-4.3); Platelet Estimate Consistent w Auto; Total Cells Counted 100
[2021-08-26] MEDS: CLOPIDOGREL 75 MG TAB PO SCH (10:38)
[2021-08-26] MEDS: ASPIRIN EC 81 MG TAB PO SCH (10:38)
[2021-08-26] MEDS: carvediloL 25 MG TAB PO SCH ×2 (10:38→21:19)
[2021-08-26] MEDS: allopurinoL 100 MG TAB PO SCH (10:38)
[2021-08-26] MEDS: DOXAZOSIN 1 MG TAB PO SCH (10:38)
[2021-08-26] MEDS: NIFEdipine XL 60 MG TAB PO SCH ×2 (10:38→21:19)
--- NOTE | 2021-08-26 10:38 | Progress Note ---
Assessment and Plan - Patient Problems (1) Edema Current Visit: Yes Status: Acute Plan to address problem: Patient presents with shortness of breath and lower extremity edema. Symptoms suggest fluid overload, which may be noncardiogenic in the setting of end-stage renal failure. His creatinine is severely elevated 4.5-4.7. He is post permacath placement and started hemodialysis. Echocardiogram shows left ventricular systolic function is relatively well- preserved with ejection fraction only mildly impaired at 45%. (2) Atrial fibrillation Current Visit: Yes Status: Acute Plan to address problem: Patient has atrial fibrillation which is likely chronic, was noted on a previous EKG 4 months ago. Rate control is optimal, but patient will benefit from long- term anticoagulation therapy. We will resume low-dose Eliquis, which was on hold for his permacath procedure. (3) Coronary artery disease Current Visit: Yes Status: Acute Plan to address problem: Patient reports a history of coronary artery disease with coronary stent placement a year and a half ago when he lived in [place]. He has no chest pain or symptoms of coronary ischemia at this time, we will resume guideline directed medical therapy and risk factor modification. Due to his vague description of the timeline of his coronary intervention, and the absence of his outpatient records, we have elected to continue dual oral antiplatelet therapy until his records are available to properly determine duration of antiplatelet management. (4) Uncontrolled hypertension Current Visit: Yes Status: Acute Subjective Date of service: 08/26/21 Principal diagnosis: Fluid overload, end-stage renal failure, chronic atrial fibrillation Interval history: Patient is comfortable, status post permacath placement and successful initial dialysis treatment. No new cardiac events reported. Objective Vital Signs Temp Pulse Resp BP BP Pulse Ox Pulse Ox 08/26/21 09:07 98.0 F 97 H 18 124/64 94 08/26/21 04:43 99.2 F 72 19 115/63 98 08/25/21 23:00 99 08/25/21 22:18 98 H 127/79 08/25/21 21:30 102 H 32 H 98 08/25/21 21:09 98.4 F 98 H 20 127/79 99 08/25/21 15:45 98 08/25/21 15:43 98.2 F 102 H 18 165/98 98 08/25/21 15:22 95 H 188/102 06/14/22 15:15 80 166/81 08/25/21 15:00 73 175/100 08/25/21 14:45 70 145/89 08/25/21 14:30 100 H 187/104 08/25/21 14:15 98 H 182/83 08/25/21 14:00 102 H 192/96 08/25/21 13:45 104 H 192/85 08/25/21 13:30 98 H 182/87 08/25/21 13:22 105 H 183/98 08/25/21 13:16 98.8 F 98 H 18 162/104 98 08/25/21 11:00 97 - Physical Examination General: No Apparent Distress HEENT: Positive: PERRL Neck: Positive: neck supple Cardiac: Positive: irregularly irregular Lungs: Positive: Decreased Breath Sounds Neuro: Positive: Grossly Intact Abdomen: Positive: Soft Skin: Positive: Clear Extremities: Present: edema - Labs and Meds Cardiac Enzymes 08/25/21 Range/Units 14:15 AST 17 (5-40) units/L CBC 08/26/21 Range/Units 05:31 WBC 7.5 (4.5-11.0) K/mm3 RBC 3.24 L (3.65-5.03) M/mm3 Hgb 10.6 L (11.8-15.2) gm/dl Hct 31.4 L (35.5-45.6) % Plt Count 173 (140-440) K/mm3 Comprehensive Metabolic Panel 08/25/21 08/26/21 Range/Units 14:15 05:31 Sodium 137 (137-145) mmol/L Potassium 3.4 L (3.6-5.0) mmol/L Chloride 99.3 (98-107) mmol/L Carbon Dioxide 25 (22-30) mmol/L BUN 38 H (9-20) mg/dL Creatinine 4.7 H (0.8-1.3) mg/dL Glucose 126 H (75-100) mg/dL Calcium 8.3 L (8.4-10.2) mg/dL Direct Bilirubin < 0.2 (0-0.2) mg/dL Indirect Bilirubin 0.3 mg/dL AST 17 (5-40) units/L ALT 9 (7-56) units/L Alkaline Phosphatase 74 (35-129) units/L Total Protein 6.8 (6.3-8.2) g/dL Albumin 3.3 L (3.9-5) g/dL
[2021-08-26] MEDS: ACETAMINOPHEN 325 MG TAB PO PRN (10:39)
[2021-08-26 12:20] LABS: Hematocrit 33.5 % (35.5-45.6); Hemoglobin 11.2 gm/dl (11.8-15.2); Mean Corpuscular HGB Conc 33 % (32-34); Mean Corpuscular Volume 97 fl (84-94); Platelet Count 175 K/mm3 (140-440); Red Blood Count 3.45 M/mm3 (3.65-5.03); Red Cell Distribution Width 14.7 % (13.2-15.2)
--- NOTE | 2021-08-26 12:35 | Progress Note ---
Assessment and Plan Acute on CKD/ESRD - Repeat HD today. Begin arrangement for outpt HD. Discussed with Case wkr (Brain), Dr. Avila will follow pt on dialysis HTN - F/u on meds CAD/AFib - Discussed with Cardiology to resume Eliquis SOB/Pulm Congestion - Continue UF on HD Subjective Principal diagnosis: Fluid overload, end-stage renal failure, chronic atrial fibrillation Interval history: Still SOB on Bipap Objective - Vital Signs Vital signs: Vital Signs - 12hr 08/26/21 08/26/21 04:43 09:07 Temperature 99.2 F 98.0 F Pulse Rate 72 97 H Respiratory 19 18 Rate Blood Pressure 115/63 124/64 O2 Sat by Pulse 98 94 Oximetry - General Appearance General appearance: other (Awake & alert) EENT: PERRL, hearing intact Neck: no JVD Respiratory: Present: Other (Good air entry) Cardiology: regular, S1S2 Gastrointestinal: normal Integumentary: no rash Neurologic: no focal deficit, alert and oriented x3 Psychiatric: mood/affect appropriate - Lab 08/26/21 11:39 08/26/21 05:31 Most recent lab results Calcium 8.3 mg/dL (8.4-10.2) L 08/26/21 05:31 Phosphorus 4.50 mg/dL (2.5-4.5) 08/25/21 03:56 Magnesium 2.30 mg/dL (1.7-2.3) 08/25/21 03:56 Medications & Allergies - Medications Allergies/Adverse Reactions: Allergies lisinopril Allergy (Verified 08/20/21 07:52) Coughing Home Medications: Home Medications Medication Instructions Recorded Confirmed Last Taken Type Amlodipine Besylate [Norvasc] 5 mg PO QDAY 08/20/21 08/20/21 Unknown History AtorvaSTATin [Lipitor] 40 mg PO QHS 08/20/21 08/20/21 Unknown History Doxazosin Mesylate [Cardura] 2 mg PO DAILY 08/20/21 08/20/21 Unknown History Furosemide [Lasix TAB] 80 mg PO QDAY 08/20/21 08/20/21 Unknown History ISOSORBIDE MONOnitrate [Imdur ER] 60 mg PO QDAY 08/20/21 08/20/21 Unknown History Rivaroxaban [Xarelto] 20 mg PO QDAY 08/20/21 08/20/21 Unknown History Sertraline [Zoloft] 50 mg PO QDAY 08/20/21 08/20/21 Unknown History Torsemide [Demadex] 20 mg PO QDAY 08/20/21 08/20/21 Unknown History allopurinoL [Zyloprim] 100 mg PO QDAY 08/20/21 08/20/21 Unknown History carvediloL [Coreg] 25 mg PO QDAY 08/20/21 08/20/21 Unknown History cloNIDine HCL [Clonidine HCl] 0.3 mg PO QDAY 08/20/21 08/20/21 Unknown History glipiZIDE [Glipizide ER] 2.5 mg PO QDAY 08/20/21 08/20/21 Unknown History Active Medications: Generic Name Dose Route Start Last Admin Trade Name Freq PRN Reason Stop Dose Admin Acetaminophen 650 mg 08/19/21 04:39 08/26/21 10:39 Acetaminophen 325 Mg Tab PO 650 mg Q4H PRN Administration Pain MILD(1-3)/Fever >100.5/DE LA PAZ Allopurinol 100 mg 08/20/21 14:00 08/26/21 10:38 Allopurinol 100 Mg Tab PO 100 mg QDAY ISHMAEL Administration Apixaban 2.5 mg 08/26/21 22:00 Apixaban 2.5 Mg Tab PO Q12HR [facility] Protocol Aspirin 81 mg 08/20/21 12:00 08/26/21 10:38 Aspirin Ec 81 Mg Tab PO 81 mg QDAY ISHMAEL Administration Atorvastatin Calcium 40 mg 08/20/21 22:00 08/25/21 22:18 Atorvastatin 40 Mg Tab PO 40 mg QHS ISHMAEL Administration Carvedilol 25 mg 08/23/21 10:00 08/26/21 10:38 Carvedilol 25 Mg Tab PO 25 mg BID ISHMAEL Administration Clopidogrel Bisulfate 75 mg 08/20/21 12:00 08/26/21 10:38 Clopidogrel 75 Mg Tab PO 75 mg QDAY ISHMAEL Administration Doxazosin Mesylate 2 mg 08/20/21 14:00 08/26/21 10:38 Doxazosin 1 Mg Tab PO 2 mg QDAY ISHMAEL Administration Furosemide 40 mg 08/19/21 06:00 08/26/21 06:16 Furosemide 40 Mg/4 Ml Inj IV 40 mg BID@0600,1800 ISHMAEL Administration Hydralazine HCl 100 mg 08/20/21 09:00 08/26/21 06:16 Hydralazine 100 Mg Tab PO 100 mg Q8HR ISHMAEL Administration Sodium Chloride 100 mls @ 999 mls/hr 08/25/21 18:02 Nacl 0.9% IV KIMBERLY PRN Hypotension Isosorbide Mononitrate 30 mg 08/19/21 16:00 08/26/21 10:38 Isosorbide Mononitrate Er 30 Mg Tab PO 30 mg QDAY ISHMAEL Administration Morphine Sulfate 2 mg 08/19/21 04:39 08/25/21 17:48 Morphine 2 Mg/1 Ml Inj IV 2 mg Q4H PRN Administration Pain, Moderate (4-6) Morphine Sulfate 4 mg 08/19/21 04:39 Morphine 4 Mg/1 Ml Inj IV Q4H PRN Pain , Severe (7-10) Nifedipine 60 mg 08/20/21 12:00 08/26/21 10:38 Nifedipine Xl 60 Mg Tab PO 60 mg Q12HR ISHMAEL Administration Ondansetron HCl 4 mg 08/19/21 04:39 Ondansetron 4 Mg/2 Ml Inj IV Q8H PRN Nausea And Vomiting Ropinirole HCl 0.25 mg 08/23/21 22:00 08/25/21 22:18 Ropinirole 0.25 Mg Tab PO 0.25 mg QHS ISHMAEL Administration Sodium Chloride 10 ml 08/19/21 10:00 08/26/21 10:38 Sodium Chloride 0.9% 10 Ml Flush Syringe IV 10 ml BID ISHMAEL Administration Sodium Chloride 10 ml 08/19/21 04:39 08/21/21 18:39 Sodium Chloride 0.9% 10 Ml Flush Syringe IV 10 ml PRN PRN Administration LINE FLUSH Zolpidem Tartrate 10 mg 08/23/21 15:18 08/24/21 22:09 Zolpidem 5 Mg Tab PO 10 mg QHS PRN Administration Sleep
[2021-08-26 12:40] LABS: INR 1.09 (0.87-1.13)
[2021-08-26 12:41] LABS: Partial Thromboplastin Time 30.4 Sec. (24.2-36.6)
--- NOTE | 2021-08-26 20:52 | Progress Note ---
Assessment and Plan Assessment and plan: 60-year-old -[place] male with known history of CHF, chronic kidney disease presenting to the emergency room complaining of progressive swelling of his lower extremities and shortness of breath which has been ongoing for the past 2 weeks. Work-up in the emergency room today EKG shows atrial fibrillation, chest x-ray was unremarkable. Labs reveals elevated BNP of 2022, potassium 3.3. BUN of 47 and creatinine of 4.7 Patient was admitted for CHF exacerbation Nephrology decided to initiate hemodialysis Vascular consulted for right internal jugular tunneled cuffed hemodialysis catheter placement Followed by hemodialysis Assessment --Acute systolic CHF exacerbation EF 40-45% Continue antifailure medications, cardiology following --Atrial fibrillation-possibly chronic; Low-dose Eliquis[resume post hemodialysis catheter placement if okay with vascular] Continue current cardiac medications --CHRISTIANO on Chronic kidney disease, likely progressed to ESRD; s/p hemodialysis catheter placement followed by hemodialysis Vascular input noted and appreciated --Hypokalemia; closely monitor electrolytes --Morbid obesity with sleep apnea; Need to follow fire controlman for sleep study CPAP BiPAP upon discharge --Hypertension; uncontrolled Continue current antihypertensives and adjust as needed Follow consultants evaluation and recommendations Possible outpatient HD placement per case management prior to discharge Closely monitor the patient and adjust management as needed Plan of care reviewed with the patient and his nurse as well as the case management Plan: 08/19 Patient was admitted for CHF exacerbation, 2D echo showed EF of 45% Cardiology consulted, continue diuresis, follow cardiology recommendation 08/20 -- Continue diuretics, replete electrolytes as needed -- Renal function slightly improved today, continue to follow BMP -- BP still remains uncontrolled and SBP at 180s -we will continue to adjust me dications, will avoid nephrotoxins -- Continue to follow clinically follow nephrology and cardiology recommendation -- Patient placed on anticoagulation with Eliquis -- Continue CPAP at bedtime 08/21: Creatinine continue to trend up, continue to follow. Add ambien I at bedtime for sleep 08/22: Cr cont to trend up, discussed with nephrology. plan to start HD likely from Wednesday 08/23: cont to monitor BMP, likely to start HD from next week 08/24: Plan to initiate hemodialysis, consulted vascular to place PermCath -which is scheduled for tomorrow, n.p.o. after midnight 08/25/2021 right internal jugular tunneled cuffed hemodialysis catheter placement today Patient received hemodialysis 08/26/2021; patient is on dialysis, CM to assist with outpatient chair for dialysis DC planning per case management History Interval history: I have seen and examined the patient at the bedside Morbidly obese in mild distress Patient is on CPAP Denies any chest pain or shortness of breath Vital signs noted Hospitalist Physical - Constitutional Vitals: Temp Pulse Resp BP Pulse Ox 98.2 F 87 18 112/83 99 08/26/21 17:17 08/26/21 20:48 08/26/21 17:17 08/26/21 17:17 08/26/21 17:17 General appearance: Present: no acute distress, well-nourished, obese (Morbidly obese) - EENT Eyes: Present: PERRL, EOM intact - Neck Neck: Present: supple, normal ROM - Respiratory Respiratory effort: normal Respiratory: bilateral: diminished, negative: rales, rhonchi, wheezing - Cardiovascular Rhythm: regular Heart Sounds: Present: S1 & S2 - Extremities Extremities: no ischemia, No edema - Abdominal General gastrointestinal: soft, non-tender, non-distended, normal bowel sounds - Integumentary Integumentary: Present: clear, warm - Psychiatric Psychiatric: appropriate mood/affect, cooperative - Neurologic Neurologic: CNII-XII intact, moves all extremities HEART Score - HEART Score Troponin: Troponin T 0.022 ng/mL (0.00-0.029) 08/18/21 17:25 Results - Labs CBC & Chem 7: 08/26/21 11:39 08/27/21 04:59 Labs: Laboratory Last Values WBC 6.9 K/mm3 (4.5-11.0) 08/26/21 11:39 RBC 3.45 M/mm3 (3.65-5.03) L 08/26/21 11:39 Hgb 11.2 gm/dl (11.8-15.2) L 08/26/21 11:39 Hct 33.5 % (35.5-45.6) L 08/26/21 11:39 MCV 97 fl (84-94) H 08/26/21 11:39 MCH 32 pg (28-32) 08/26/21 11:39 MCHC 33 % (32-34) 08/26/21 11:39 RDW 14.7 % (13.2-15.2) 08/26/21 11:39 Plt Count 175 K/mm3 (140-440) 08/26/21 11:39 Keith % (Auto) [employer] 08/25/21 03:56 Eos % (Auto) 2.4 % (0.0-4.3) 08/18/21 11:45 Keith # (Auto) 0.7 K/mm3 (0.0-0.8) 08/18/21 11:45 Eos # (Auto) 0.2 K/mm3 (0.0-0.4) 08/18/21 11:45 Baso # (Auto) 0.3 K/mm3 (0.0-0.1) H 08/18/21 11:45 Add Manual Diff Complete 08/26/21 05:31 Total Counted 100 08/26/21 05:31 Seg Neutrophils % 69.8 % (40.0-70.0) 08/18/21 11:45 Seg Neuts % (Manual) 83.0 % (40.0-70.0) H 08/26/21 05:31 Band Neutrophils % 0 % 08/26/21 05:31 Lymphocytes % (Manual) 8.0 % (13.4-35.0) L 08/26/21 05:31 Reactive Lymphs % (Man) 0 % 08/26/21 05:31 Monocytes % (Manual) 9.0 % (0.0-7.3) H 08/26/21 05:31 Eosinophils % (Manual) 0 % (0.0-4.3) 08/26/21 05:31 Basophils % (Manual) 0 % (0.0-1.8) 08/26/21 05:31 Metamyelocytes % 0 % 08/26/21 05:31 Myelocytes % 0 % 08/26/21 05:31 Promyelocytes % 0 % 08/26/21 05:31 Blast Cells % 0 % 08/26/21 05:31 Nucleated RBC % Not Reportable 08/26/21 05:31 Seg Neutrophils # 5.2 K/mm3 (1.8-7.7) 08/18/21 11:45 Seg Neutrophils # Man 6.2 K/mm3 (1.8-7.7) 08/26/21 05:31 Band Neutrophils # 0.0 K/mm3 08/26/21 05:31 Lymphocytes # (Manual) 0.6 K/mm3 (1.2-5.4) L 08/26/21 05:31 Abs React Lymphs (Man) 0.0 K/mm3 08/26/21 05:31 Monocytes # (Manual) 0.7 K/mm3 (0.0-0.8) 08/26/21 05:31 Eosinophils # (Manual) 0.0 K/mm3 (0.0-0.4) 08/26/21 05:31 Basophils # (Manual) 0.0 K/mm3 (0.0-0.1) 08/26/21 05:31 Metamyelocytes # 0.0 K/mm3 08/26/21 05:31 Myelocytes # 0.0 K/mm3 08/26/21 05:31 Promyelocytes # 0.0 K/mm3 08/26/21 05:31 Blast Cells # 0.0 K/mm3 08/26/21 05:31 WBC Morphology Not Reportable 08/26/21 05:31 Hypersegmented Neuts Not Reportable 08/26/21 05:31 Hyposegmented Neuts Not Reportable 08/26/21 05:31 Hypogranular Neuts Not Reportable 08/26/21 05:31 Smudge Cells Not Reportable 08/26/21 05:31 Toxic Granulation Not Reportable 08/26/21 05:31 Toxic Vacuolation Not Reportable 08/26/21 05:31 Dohle Bodies Not Reportable 08/26/21 05:31 Pelger-Huet Anomaly Not Reportable 08/26/21 05:31 Sharath Rods Not Reportable 08/26/21 05:31 Platelet Estimate Consistent w auto 08/26/21 05:31 Clumped Platelets Not Reportable 08/26/21 05:31 Plt Clumps, EDTA Not Reportable 08/26/21 05:31 Large Platelets Not Reportable 08/26/21 05:31 Giant Platelets Not Reportable 08/26/21 05:31 Platelet Satelliting Not Reportable 08/26/21 05:31 Plt Morphology Comment Not Reportable 08/26/21 05:31 RBC Morphology Not Reportable 08/26/21 05:31 Dimorphic RBCs Not Reportable 08/26/21 05:31 Polychromasia Not Reportable 08/26/21 05:31 Hypochromasia Not Reportable 08/26/21 05:31 Poikilocytosis Not Reportable 08/26/21 05:31 Anisocytosis 1+ 08/26/21 05:31 Microcytosis Not Reportable 08/26/21 05:31 Macrocytosis Not Reportable 08/26/21 05:31 Spherocytes Not Reportable 08/26/21 05:31 Pappenheimer Bodies Not Reportable 08/26/21 05:31 Sickle Cells Not Reportable 08/26/21 05:31 Target Cells Not Reportable 08/26/21 05:31 Tear Drop Cells Not Reportable 08/26/21 05:31 Ovalocytes Not Reportable 08/26/21 05:31 Helmet Cells Not Reportable 08/26/21 05:31 Bailey-Red Jacket Bodies Not Reportable 08/26/21 05:31 Cantrall Rings Not Reportable 08/26/21 05:31 Mely Cells Not Reportable 08/26/21 05:31 Bite Cells Not Reportable 08/26/21 05:31 Crenated Cell Not Reportable 08/26/21 05:31 Elliptocytes Not Reportable 08/26/21 05:31 Acanthocytes (Spur) Not Reportable 08/26/21 05:31 Rouleaux Not Reportable 08/26/21 05:31 Hemoglobin C Crystals Not Reportable 08/26/21 05:31 Schistocytes Not Reportable 08/26/21 05:31 Malaria parasites Not Reportable 08/26/21 05:31 Delfino Bodies Not Reportable 08/26/21 05:31 Hem Pathologist Commnt No 08/26/21 05:31 PT 15.4 Sec. (12.2-14.9) H 08/26/21 11:39 INR 1.09 (0.87-1.13) 08/26/21 11:39 APTT 30.4 Sec. (24.2-36.6) 08/26/21 11:39 Sodium 137 mmol/L (137-145) 08/26/21 05:31 Potassium 3.4 mmol/L (3.6-5.0) L 08/26/21 05:31 Chloride 99.3 mmol/L (98-107) 08/26/21 05:31 Carbon Dioxide 25 mmol/L (22-30) 08/26/21 05:31 Anion Gap 16 mmol/L 08/26/21 05:31 BUN 38 mg/dL (9-20) H 08/26/21 05:31 Creatinine 4.7 mg/dL (0.8-1.3) H 08/26/21 11:39 Estimated GFR 13 ml/min 08/26/21 11:39 BUN/Creatinine Ratio 8 % 08/26/21 05:31 Glucose 126 mg/dL (75-100) H 08/26/21 05:31 Calcium 8.3 mg/dL (8.4-10.2) L 08/26/21 05:31 Phosphorus 4.50 mg/dL (2.5-4.5) 08/25/21 03:56 Magnesium 2.30 mg/dL (1.7-2.3) 08/25/21 03:56 Total Bilirubin 0.50 mg/dL (0.1-1.2) 08/25/21 14:15 Direct Bilirubin < 0.2 mg/dL (0-0.2) 08/25/21 14:15 Indirect Bilirubin 0.3 mg/dL 08/25/21 14:15 AST 17 units/L (5-40) 08/25/21 14:15 ALT 9 units/L (7-56) 08/25/21 14:15 Alkaline Phosphatase 74 units/L (35-129) 08/25/21 14:15 Troponin T 0.022 ng/mL (0.00-0.029) 08/18/21 17:25 NT-Pro-B Natriuret Pep 2023 pg/mL (0-900) H 08/18/21 11:45 Total Protein 6.8 g/dL (6.3-8.2) 08/25/21 14:15 Albumin 3.3 g/dL (3.9-5) L 08/25/21 14:15 Albumin/Globulin Ratio 0.9 % 08/25/21 14:15 PTH Intact 350.9 pg/mL (15-65) H 08/20/21 05:21 Hepatitis A IgM Ab Non-reactive (NonReactive) 08/24/21 15:10 Hep Bs Antigen Non-reactive (Negative) 08/24/21 15:10 Hep B Core IgM Ab Non-reactive (NonReactive) 08/24/21 15:10 Hepatitis C Antibody Non-reactive (NonReactive) 08/24/21 15:10 Evangelista/IV: Voiding Method Urinal Active Medications - Current Medications Current Medications: Generic Name Dose Route Start Last Admin Trade Name Freq PRN Reason Stop Dose Admin Acetaminophen 650 mg 08/19/21 04:39 08/26/21 10:39 Acetaminophen 325 Mg Tab PO 650 mg Q4H PRN Administration Pain MILD(1-3)/Fever >100.5/DE LA PAZ Allopurinol 100 mg 08/20/21 14:00 08/26/21 10:38 Allopurinol 100 Mg Tab PO 100 mg QDAY ISHMAEL Administration Apixaban 2.5 mg 08/26/21 22:00 Apixaban 2.5 Mg Tab PO Q12HR [facility] Protocol Aspirin 81 mg 08/20/21 12:00 08/26/21 10:38 Aspirin Ec 81 Mg Tab PO 81 mg QDAY ISHMAEL Administration Atorvastatin Calcium 40 mg 08/20/21 22:00 08/25/21 22:18 Atorvastatin 40 Mg Tab PO 40 mg QHS ISHMAEL Administration Carvedilol 25 mg 08/23/21 10:00 08/26/21 10:38 Carvedilol 25 Mg Tab PO 25 mg BID ISHMAEL Administration Clopidogrel Bisulfate 75 mg 08/20/21 12:00 08/26/21 10:38 Clopidogrel 75 Mg Tab PO 75 mg QDAY [facility] Administration Doxazosin Mesylate 2 mg 08/20/21 14:00 08/26/21 10:38 Doxazosin 1 Mg Tab PO 2 mg QDAY ISHMAEL Administration Furosemide 40 mg 08/19/21 06:00 08/26/21 17:51 Furosemide 40 Mg/4 Ml Inj IV 40 mg BID@0600,1800 ISHMAEL Administration Hydralazine HCl 100 mg 08/20/21 09:00 08/26/21 14:10 Hydralazine 100 Mg Tab PO Not Given Q8HR [facility] Sodium Chloride 100 mls @ 999 mls/hr 08/25/21 18:02 Nacl 0.9% IV KIMBERLY PRN Hypotension Isosorbide Mononitrate 30 mg 08/19/21 16:00 08/26/21 10:38 Isosorbide Mononitrate Er 30 Mg Tab PO 30 mg QDAY ISHMAEL Administration Morphine Sulfate 2 mg 08/19/21 04:39 08/25/21 17:48 Morphine 2 Mg/1 Ml Inj IV 2 mg Q4H PRN Administration Pain, Moderate (4-6) Morphine Sulfate 4 mg 08/19/21 04:39 Morphine 4 Mg/1 Ml Inj IV Q4H PRN Pain , Severe (7-10) Nifedipine 60 mg 08/20/21 12:00 08/26/21 10:38 Nifedipine Xl 60 Mg Tab PO 60 mg Q12HR ISHMAEL Administration Ondansetron HCl 4 mg 08/19/21 04:39 Ondansetron 4 Mg/2 Ml Inj IV Q8H PRN Nausea And Vomiting Ropinirole HCl 0.25 mg 08/23/21 22:00 08/25/21 22:18 Ropinirole 0.25 Mg Tab PO 0.25 mg QHS ISHMAEL Administration Sodium Chloride 10 ml 08/19/21 10:00 08/26/21 10:38 Sodium Chloride 0.9% 10 Ml Flush Syringe IV 10 ml BID ISHMAEL Administration Sodium Chloride 10 ml 08/19/21 04:39 08/21/21 18:39 Sodium Chloride 0.9% 10 Ml Flush Syringe IV 10 ml PRN PRN Administration LINE FLUSH Zolpidem Tartrate 10 mg 08/23/21 15:18 08/24/21 22:09 Zolpidem 5 Mg Tab PO 10 mg QHS PRN Administration Sleep
[2021-08-26] MEDS: rOPINIRole 0.25 MG TAB PO SCH (21:20)
[2021-08-26] MEDS: APIXABAN 2.5 MG TAB PO SCH (21:20)
[2021-08-27 05:40] LABS: Albumin 3.6 g/dL (3.9-5); Calcium 8.7 mg/dL (8.4-10.2)
[2021-08-27] MEDS: FUROSEMIDE 40 MG/4 ML INJ IV SCH ×2 (08:23→17:04)
[2021-08-27] MEDS: hydrALAZINE 100 MG TAB PO SCH ×3 (08:23→21:39)
[2021-08-27] MEDS: carvediloL 25 MG TAB PO SCH ×2 (09:59→21:40)
[2021-08-27] MEDS: CLOPIDOGREL 75 MG TAB PO SCH (09:59)
[2021-08-27] MEDS: NIFEdipine XL 60 MG TAB PO SCH ×2 (10:00→21:39)
[2021-08-27] MEDS: DOXAZOSIN 1 MG TAB PO SCH (10:00)
[2021-08-27] MEDS: allopurinoL 100 MG TAB PO SCH (10:00)
[2021-08-27] MEDS: APIXABAN 2.5 MG TAB PO SCH ×2 (10:00→21:39)
[2021-08-27] MEDS: ASPIRIN EC 81 MG TAB PO SCH (10:00)
[2021-08-27] MEDS ORDERED: SODIUM CHLORIDE 0.9% 100 ML IV PRN (11:54)
--- NOTE | 2021-08-27 11:54 | Progress Note ---
Assessment and Plan Acute on CKD/ESRD - HD in am. Arrangement for outpt HD in process at [facility], will f/u & conclude in am HTN - F/u on meds CAD/AFib - Stable, back on Eliquis & f/u per Cardiology SOB/Pulm Congestion - Continue UF on HD Subjective Date of service: 08/27/21 Principal diagnosis: Fluid overload, end-stage renal failure, chronic atrial fibrillation Interval history: No new complaint Objective - Vital Signs Vital signs: Vital Signs - 12hr 08/27/21 08/27/21 04:34 08:09 Temperature 97.6 F 99.2 F Pulse Rate 88 63 Respiratory 20 18 Rate Blood Pressure 114/77 Blood Pressure 127/83 [Right] O2 Sat by Pulse 99 99 Oximetry - General Appearance General appearance: other (Awake & verbally responsive) EENT: PERRL, hearing intact Neck: supple Respiratory: Present: Other (Good air entry, off Bipap) Cardiology: regular, S1S2 Gastrointestinal: obese Neurologic: alert and oriented x3 - Lab 08/26/21 11:39 08/27/21 04:59 Most recent lab results Calcium 8.7 mg/dL (8.4-10.2) 08/27/21 04:59 Phosphorus 5.00 mg/dL (2.5-4.5) H 08/27/21 04:59 Magnesium 2.20 mg/dL (1.7-2.3) 08/27/21 04:59 Medications & Allergies - Medications Allergies/Adverse Reactions: Allergies lisinopril Allergy (Verified 08/20/21 07:52) Coughing Home Medications: Home Medications Medication Instructions Recorded Confirmed Last Taken Type Amlodipine Besylate [Norvasc] 5 mg PO QDAY 08/20/21 08/20/21 Unknown History AtorvaSTATin [Lipitor] 40 mg PO QHS 08/20/21 08/20/21 Unknown History Doxazosin Mesylate [Cardura] 2 mg PO DAILY 08/20/21 08/20/21 Unknown History Furosemide [Lasix TAB] 80 mg PO QDAY 08/20/21 08/20/21 Unknown History ISOSORBIDE MONOnitrate [Imdur ER] 60 mg PO QDAY 08/20/21 08/20/21 Unknown History Rivaroxaban [Xarelto] 20 mg PO QDAY 08/20/21 08/20/21 Unknown History Sertraline [Zoloft] 50 mg PO QDAY 08/20/21 08/20/21 Unknown History Torsemide [Demadex] 20 mg PO QDAY 08/20/21 08/20/21 Unknown History allopurinoL [Zyloprim] 100 mg PO QDAY 08/20/21 08/20/21 Unknown History carvediloL [Coreg] 25 mg PO QDAY 08/20/21 08/20/21 Unknown History cloNIDine HCL [Clonidine HCl] 0.3 mg PO QDAY 08/20/21 08/20/21 Unknown History glipiZIDE [Glipizide ER] 2.5 mg PO QDAY 08/20/21 08/20/21 Unknown History Active Medications: Generic Name Dose Route Start Last Admin Trade Name Freq PRN Reason Stop Dose Admin Acetaminophen 650 mg 08/19/21 04:39 08/26/21 10:39 Acetaminophen 325 Mg Tab PO 650 mg Q4H PRN Administration Pain MILD(1-3)/Fever >100.5/DE LA PAZ Allopurinol 100 mg 08/20/21 14:00 08/27/21 10:00 Allopurinol 100 Mg Tab PO 100 mg QDAY ISHMAEL Administration Apixaban 2.5 mg 08/26/21 22:00 08/27/21 10:00 Apixaban 2.5 Mg Tab PO 2.5 mg Q12HR ISHMAEL Administration Protocol Aspirin 81 mg 08/20/21 12:00 08/27/21 10:00 Aspirin Ec 81 Mg Tab PO 81 mg QDAY ISHMAEL Administration Atorvastatin Calcium 40 mg 08/20/21 22:00 08/26/21 21:19 Atorvastatin 40 Mg Tab PO 40 mg QHS ISHMAEL Administration Carvedilol 25 mg 08/23/21 10:00 08/27/21 09:59 Carvedilol 25 Mg Tab PO 25 mg BID ISHMAEL Administration Clopidogrel Bisulfate 75 mg 08/20/21 12:00 08/27/21 09:59 Clopidogrel 75 Mg Tab PO 75 mg QDAY ISHMAEL Administration Doxazosin Mesylate 2 mg 08/20/21 14:00 08/27/21 10:00 Doxazosin 1 Mg Tab PO 2 mg QDAY ISHMAEL Administration Furosemide 40 mg 08/19/21 06:00 08/27/21 08:23 Furosemide 40 Mg/4 Ml Inj IV 40 mg BID@0600,1800 ISHMAEL Administration Hydralazine HCl 100 mg 08/20/21 09:00 08/27/21 08:23 Hydralazine 100 Mg Tab PO 100 mg Q8HR ISHMAEL Administration Sodium Chloride 100 mls @ 999 mls/hr 08/25/21 18:02 Nacl 0.9% IV KIMBERLY PRN Hypotension Isosorbide Mononitrate 30 mg 08/19/21 16:00 08/27/21 10:00 Isosorbide Mononitrate Er 30 Mg Tab PO 30 mg QDAY ISHMAEL Administration Morphine Sulfate 2 mg 08/19/21 04:39 08/25/21 17:48 Morphine 2 Mg/1 Ml Inj IV 2 mg Q4H PRN Administration Pain, Moderate (4-6) Morphine Sulfate 4 mg 08/19/21 04:39 Morphine 4 Mg/1 Ml Inj IV Q4H PRN Pain , Severe (7-10) Nifedipine 60 mg 08/20/21 12:00 08/27/21 10:00 Nifedipine Xl 60 Mg Tab PO 60 mg Q12HR ISHMAEL Administration Ondansetron HCl 4 mg 08/19/21 04:39 Ondansetron 4 Mg/2 Ml Inj IV Q8H PRN Nausea And Vomiting Ropinirole HCl 0.25 mg 08/23/21 22:00 08/26/21 21:20 Ropinirole 0.25 Mg Tab PO 0.25 mg QHS ISHMAEL Administration Sodium Chloride 10 ml 08/19/21 10:00 08/27/21 10:00 Sodium Chloride 0.9% 10 Ml Flush Syringe IV 10 ml BID ISHMAEL Administration Sodium Chloride 10 ml 08/19/21 04:39 08/21/21 18:39 Sodium Chloride 0.9% 10 Ml Flush Syringe IV 10 ml PRN PRN Administration LINE FLUSH Zolpidem Tartrate 10 mg 08/23/21 15:18 08/24/21 22:09 Zolpidem 5 Mg Tab PO 10 mg QHS PRN Administration Sleep
--- NOTE | 2021-08-27 12:56 | Progress Note ---
Assessment and Plan - Patient Problems (1) Edema Current Visit: Yes Status: Acute Plan to address problem: Patient presents with shortness of breath and lower extremity edema. Symptoms suggest fluid overload, which may be noncardiogenic in the setting of end-stage renal failure. His creatinine is severely elevated 4.5-4.7. He is post permacath placement and started hemodialysis. Echocardiogram shows left ventricular systolic function is relatively well- preserved with ejection fraction only mildly impaired at 45%. (2) Atrial fibrillation Current Visit: Yes Status: Acute (3) Coronary artery disease Current Visit: Yes Status: Acute Plan to address problem: Patient reports a history of coronary artery disease with coronary stent placement a year and a half ago when he lived in [place]. He has no chest pain or symptoms of coronary ischemia at this time, we will resume guideline directed medical therapy and risk factor modification. Due to his vague description of the timeline of his coronary intervention, and the absence of his outpatient records, we have elected to continue dual oral antiplatelet therapy until his records are available to properly determine duration of antiplatelet management. (4) Uncontrolled hypertension Current Visit: Yes Status: Acute Plan to address problem: Patient systolic blood pressure is now well controlled with the addition of Procardia XL 60 mg twice daily. Subjective Date of service: 08/27/21 Principal diagnosis: Fluid overload, end-stage renal failure, chronic atrial fi brillation Interval history: Patient is comfortable no acute distress, no new cardiac complaints. No new cardiac events reported. Objective Vital Signs Temp Pulse Resp BP BP Pulse Ox Pulse Ox 08/27/21 12:00 63 08/27/21 10:00 18 96 08/27/21 08:09 99.2 F 63 18 114/77 99 08/27/21 04:34 97.6 F 88 20 127/83 99 08/26/21 23:10 98.7 F 85 18 127/69 97 08/26/21 22:54 98.7 F 107 H 18 133/87 93 08/26/21 22:29 18 96 08/26/21 21:30 78 26 H 99 08/26/21 20:48 87 08/26/21 20:06 98.7 F 99 H 28 H 125/75 96 08/26/21 17:17 98.2 F 87 18 112/83 99 08/26/21 15:45 98.2 F 93 H 20 151/100 96 08/26/21 15:30 72 151/101 08/26/21 15:15 51 L 123/74 08/26/21 15:00 48 L 117/60 08/26/21 14:45 64 122/85 08/26/21 14:30 83 124/89 08/26/21 14:15 88 118/87 08/26/21 14:00 88 119/67 08/26/21 13:45 86 141/79 08/26/21 13:30 81 117/83 08/26/21 13:20 97.8 F 65 18 105/67 96 - Physical Examination General: No Apparent Distress HEENT: Positive: PERRL Neck: Positive: neck supple Cardiac: Positive: irregularly irregular Lungs: Positive: Decreased Breath Sounds Neuro: Positive: Grossly Intact Abdomen: Positive: Soft Skin: Positive: Clear Extremities: Present: edema - Labs and Meds Cardiac Enzymes 08/27/21 Range/Units 04:59 AST 12 (5-40) units/L Comprehensive Metabolic Panel 08/26/21 08/27/21 Range/Units 11:39 04:59 Sodium 138 (137-145) mmol/L Potassium 3.4 L (3.6-5.0) mmol/L Chloride 99.4 (98-107) mmol/L Carbon Dioxide 25 (22-30) mmol/L BUN 38 H (9-20) mg/dL Creatinine 4.7 H 5.2 H (0.8-1.3) mg/dL Glucose 116 H (75-100) mg/dL Calcium 8.7 (8.4-10.2) mg/dL AST 12 (5-40) units/L ALT 6 L (7-56) units/L Alkaline Phosphatase 84 (35-129) units/L Total Protein 7.1 (6.3-8.2) g/dL Albumin 3.6 L (3.9-5) g/dL
[2021-08-27] MEDS ORDERED: POTASSIUM CHLORIDE ER 20 MEQ TAB PO SCH (16:18)
--- NOTE | 2021-08-27 19:25 | Progress Note ---
Assessment and Plan Assessment and plan: 60-year-old -Armenian male with known history of CHF, chronic kidney disease presenting to the emergency room complaining of progressive swelling of his lower extremities and shortness of breath which has been ongoing for the past 2 weeks. Work-up in the emergency room today EKG shows atrial fibrillation, chest x-ray was unremarkable. Labs reveals elevated BNP of 2022, potassium 3.3. BUN of 47 and creatinine of 4.7 Patient was admitted for CHF exacerbation Nephrology decided to initiate hemodialysis Vascular consulted for right internal jugular tunneled cuffed hemodialysis catheter placement Followed by hemodialysis Assessment --Acute systolic CHF exacerbation EF 40-45% Continue antifailure medications, cardiology following --Atrial fibrillation-possibly chronic; Low-dose Eliquis[resume post hemodialysis catheter placement if okay with vascular] Continue current cardiac medications --CHRISTIANO on Chronic kidney disease, likely progressed to ESRD; s/p hemodialysis catheter placement, new hemodialysis Outpatient HD placement per case management --Hypokalemia; closely monitor electrolytes --Morbid obesity with sleep apnea; 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 CPAP BiPAP upon discharge --Hypertension; uncontrolled Continue current antihypertensives and adjust as needed Follow consultants evaluation and recommendations Possible outpatient HD placement per case management prior to discharge Closely monitor the patient and adjust management as needed Plan of care reviewed with the patient and his nurse as well as the case management Plan: 08/19 Patient was admitted for CHF exacerbation, 2D echo showed EF of 45% Cardiology consulted, continue diuresis, follow cardiology recommendation 08/20 -- Continue diuretics, replete electrolytes as needed -- Renal function slightly improved today, continue to follow BMP -- BP still remains uncontrolled and SBP at 180s -we will continue to adjust me dications, will avoid nephrotoxins -- Continue to follow clinically follow nephrology and cardiology recommendation -- Patient placed on anticoagulation with Eliquis -- Continue CPAP at bedtime 08/21: Creatinine continue to trend up, continue to follow. Add ambien I at bedtime for sleep 08/22: Cr cont to trend up, discussed with nephrology. plan to start HD likely from Wednesday 08/23: cont to monitor BMP, likely to start HD from next week 08/24: Plan to initiate hemodialysis, consulted vascular to place PermCath -which is scheduled for tomorrow, n.p.o. after midnight 08/25/2021 right internal jugular tunneled cuffed hemodialysis catheter placement today Patient received hemodialysis 08/26/2021; patient is on dialysis, CM to assist with outpatient chair for dialysis DC planning per case management. 08/27/2021; case management set up outpatient HD chair timings Chair days/time: Tuesday,,Tuesday at 5:30am, 1st treatment outpatient is set for Tuesday at 5:30am,patient will need to arrive to the clinic at 5am to sign paperwork,bring ID,insurance card. SW notified. will continue to follow. PT evaluated the patient recommend home health PT, patient already has CPAP at home Possible discharge home tomorrow if stable Plan of care reviewed with the patient, his nurse and the case management History Interval history: I have seen and examined the patient at the bedside patient's chart and medications reviewed No new events reported by the nursing Patient is on CPAP intermittently[he has his own CPAP at home] Vital signs noted Hospitalist Physical - Constitutional Vitals: Temp Pulse Resp BP Pulse Ox 99.0 F 63 20 113/67 96 08/27/21 15:26 08/27/21 12:00 08/27/21 15:26 08/27/21 15:26 08/27/21 10:00 General appearance: Present: no acute distress, well-nourished, obese (Morbidly obese) - EENT Eyes: Present: PERRL, EOM intact - Neck Neck: Present: supple, normal ROM - Respiratory Respiratory effort: normal Respiratory: bilateral: diminished, negative: rales, rhonchi, wheezing - Cardiovascular Rhythm: regular Heart Sounds: Present: S1 & S2 - Extremities Extremities: no ischemia, No edema - Abdominal General gastrointestinal: soft, non-tender, non-distended, normal bowel sounds - Integumentary Integumentary: Present: clear, warm - Psychiatric Psychiatric: appropriate mood/affect, cooperative - Neurologic Neurologic: CNII-XII intact, moves all extremities HEART Score - HEART Score Troponin: Troponin T 0.022 ng/mL (0.00-0.029) 08/18/21 17:25 Results - Labs CBC & Chem 7: 08/26/21 11:39 08/27/21 04:59 Labs: Laboratory Last Values WBC 6.9 K/mm3 (4.5-11.0) 08/26/21 11:39 RBC 3.45 M/mm3 (3.65-5.03) L 08/26/21 11:39 Hgb 11.2 gm/dl (11.8-15.2) L 08/26/21 11:39 Hct 33.5 % (35.5-45.6) L 08/26/21 11:39 MCV 97 fl (84-94) H 08/26/21 11:39 MCH 32 pg (28-32) 08/26/21 11:39 MCHC 33 % (32-34) 08/26/21 11:39 RDW 14.7 % (13.2-15.2) 08/26/21 11:39 Plt Count 175 K/mm3 (140-440) 08/26/21 11:39 [place] % (Auto) Student Life Dean 08/25/21 03:56 Eos % (Auto) 2.4 % (0.0-4.3) 08/18/21 11:45 [place] # (Auto) 0.7 K/mm3 (0.0-0.8) 08/18/21 11:45 Eos # (Auto) 0.2 K/mm3 (0.0-0.4) 08/18/21 11:45 Baso # (Auto) 0.3 K/mm3 (0.0-0.1) H 08/18/21 11:45 Add Manual Diff Complete 08/26/21 05:31 Total Counted 100 08/26/21 05:31 Seg Neutrophils % 69.8 % (40.0-70.0) 08/18/21 11:45 Seg Neuts % (Manual) 83.0 % (40.0-70.0) H 08/26/21 05:31 Band Neutrophils % 0 % 08/26/21 05:31 Lymphocytes % (Manual) 8.0 % (13.4-35.0) L 08/26/21 05:31 Reactive Lymphs % (Man) 0 % 08/26/21 05:31 Monocytes % (Manual) 9.0 % (0.0-7.3) H 08/26/21 05:31 Eosinophils % (Manual) 0 % (0.0-4.3) 08/26/21 05:31 Basophils % (Manual) 0 % (0.0-1.8) 08/26/21 05:31 Metamyelocytes % 0 % 08/26/21 05:31 Myelocytes % 0 % 08/26/21 05:31 Promyelocytes % 0 % 08/26/21 05:31 Blast Cells % 0 % 08/26/21 05:31 Nucleated RBC % Not Reportable 08/26/21 05:31 Seg Neutrophils # 5.2 K/mm3 (1.8-7.7) 08/18/21 11:45 Seg Neutrophils # Man 6.2 K/mm3 (1.8-7.7) 08/26/21 05:31 Band Neutrophils # 0.0 K/mm3 08/26/21 05:31 Lymphocytes # (Manual) 0.6 K/mm3 (1.2-5.4) L 08/26/21 05:31 Abs React Lymphs (Man) 0.0 K/mm3 08/26/21 05:31 Monocytes # (Manual) 0.7 K/mm3 (0.0-0.8) 08/26/21 05:31 Eosinophils # (Manual) 0.0 K/mm3 (0.0-0.4) 08/26/21 05:31 Basophils # (Manual) 0.0 K/mm3 (0.0-0.1) 08/26/21 05:31 Metamyelocytes # 0.0 K/mm3 08/26/21 05:31 Myelocytes # 0.0 K/mm3 08/26/21 05:31 Promyelocytes # 0.0 K/mm3 08/26/21 05:31 Blast Cells # 0.0 K/mm3 08/26/21 05:31 WBC Morphology Not Reportable 08/26/21 05:31 Hypersegmented Neuts Not Reportable 08/26/21 05:31 Hyposegmented Neuts Not Reportable 08/26/21 05:31 Hypogranular Neuts Not Reportable 08/26/21 05:31 Smudge Cells Not Reportable 08/26/21 05:31 Toxic Granulation Not Reportable 08/26/21 05:31 Toxic Vacuolation Not Reportable 08/26/21 05:31 Dohle Bodies Not Reportable 08/26/21 05:31 Pelger-Huet Anomaly Not Reportable 08/26/21 05:31 Sharath Rods Not Reportable 08/26/21 05:31 Platelet Estimate Consistent w auto 08/26/21 05:31 Clumped Platelets Not Reportable 08/26/21 05:31 Plt Clumps, EDTA Not Reportable 08/26/21 05:31 Large Platelets Not Reportable 08/26/21 05:31 Giant Platelets Not Reportable 08/26/21 05:31 Platelet Satelliting Not Reportable 08/26/21 05:31 Plt Morphology Comment Not Reportable 08/26/21 05:31 RBC Morphology Not Reportable 08/26/21 05:31 Dimorphic RBCs Not Reportable 08/26/21 05:31 Polychromasia Not Reportable 08/26/21 05:31 Hypochromasia Not Reportable 08/26/21 05:31 Poikilocytosis Not Reportable 08/26/21 05:31 Anisocytosis 1+ 08/26/21 05:31 Microcytosis Not Reportable 08/26/21 05:31 Macrocytosis Not Reportable 08/26/21 05:31 Spherocytes Not Reportable 08/26/21 05:31 Pappenheimer Bodies Not Reportable 08/26/21 05:31 Sickle Cells Not Reportable 08/26/21 05:31 Target Cells Not Reportable 08/26/21 05:31 Tear Drop Cells Not Reportable 08/26/21 05:31 Ovalocytes Not Reportable 08/26/21 05:31 Helmet Cells Not Reportable 08/26/21 05:31 Bailey-Marshallberg Bodies Not Reportable 08/26/21 05:31 [place] Rings Not Reportable 08/26/21 05:31 Mely Cells Not Reportable 08/26/21 05:31 Bite Cells Not Reportable 08/26/21 05:31 Crenated Cell Not Reportable 08/26/21 05:31 Elliptocytes Not Reportable 08/26/21 05:31 Acanthocytes (Spur) Not Reportable 08/26/21 05:31 Rouleaux Not Reportable 08/26/21 05:31 Hemoglobin C Crystals Not Reportable 08/26/21 05:31 Schistocytes Not Reportable 08/26/21 05:31 Malaria parasites Not Reportable 08/26/21 05:31 Delfino Bodies Not Reportable 08/26/21 05:31 Hem Pathologist Commnt No 08/26/21 05:31 PT 15.4 Sec. (12.2-14.9) H 08/26/21 11:39 INR 1.09 (0.87-1.13) 08/26/21 11:39 APTT 30.4 Sec. (24.2-36.6) 08/26/21 11:39 Sodium 138 mmol/L (137-145) 08/27/21 04:59 Potassium 3.4 mmol/L (3.6-5.0) L 08/27/21 04:59 Chloride 99.4 mmol/L (98-107) 08/27/21 04:59 Carbon Dioxide 25 mmol/L (22-30) 08/27/21 04:59 Anion Gap 17 mmol/L 08/27/21 04:59 BUN 38 mg/dL (9-20) H 08/27/21 04:59 Creatinine 5.2 mg/dL (0.8-1.3) H 08/27/21 04:59 Estimated GFR 11 ml/min 08/27/21 04:59 BUN/Creatinine Ratio 7 % 08/27/21 04:59 Glucose 116 mg/dL (75-100) H 08/27/21 04:59 Calcium 8.7 mg/dL (8.4-10.2) 08/27/21 04:59 Phosphorus 5.00 mg/dL (2.5-4.5) H 08/27/21 04:59 Magnesium 2.20 mg/dL (1.7-2.3) 08/27/21 04:59 Total Bilirubin 0.50 mg/dL (0.1-1.2) 08/27/21 04:59 Direct Bilirubin < 0.2 mg/dL (0-0.2) 08/25/21 14:15 Indirect Bilirubin 0.3 mg/dL 08/25/21 14:15 AST 12 units/L (5-40) 08/27/21 04:59 ALT 6 units/L (7-56) L 08/27/21 04:59 Alkaline Phosphatase 84 units/L (35-129) 08/27/21 04:59 Troponin T 0.022 ng/mL (0.00-0.029) 08/18/21 17:25 NT-Pro-B Natriuret Pep 2023 pg/mL (0-900) H 08/18/21 11:45 Total Protein 7.1 g/dL (6.3-8.2) 08/27/21 04:59 Albumin 3.6 g/dL (3.9-5) L 08/27/21 04:59 Albumin/Globulin Ratio 1.0 % 08/27/21 04:59 PTH Intact 350.9 pg/mL (15-65) H 08/20/21 05:21 Coronavirus (PCR) Negative (Negative) 08/26/21 08:01 Hepatitis A IgM Ab Non-reactive (NonReactive) 08/24/21 15:10 Hep Bs Antigen Non-reactive (Negative) 08/24/21 15:10 Hep B Core IgM Ab Non-reactive (NonReactive) 08/24/21 15:10 Hepatitis C Antibody Non-reactive (NonReactive) 08/24/21 15:10 Evangelista/IV: Voiding Method Toilet Active Medications - Current Medications Current Medications: Generic Name Dose Route Start Last Admin Trade Name Freq PRN Reason Stop Dose Admin Acetaminophen 650 mg 08/19/21 04:39 08/26/21 10:39 Acetaminophen 325 Mg Tab PO 650 mg Q4H PRN Administration Pain MILD(1-3)/Fever >100.5/DE LA PAZ Allopurinol 100 mg 08/20/21 14:00 08/27/21 10:00 Allopurinol 100 Mg Tab PO 100 mg QDAY ISHMAEL Administration Apixaban 2.5 mg 08/26/21 22:00 08/27/21 10:00 Apixaban 2.5 Mg Tab PO 2.5 mg Q12HR ISHMAEL Administration Protocol Aspirin 81 mg 08/20/21 12:00 08/27/21 10:00 Aspirin Ec 81 Mg Tab PO 81 mg QDAY ISHMAEL Administration Atorvastatin Calcium 40 mg 08/20/21 22:00 08/26/21 21:19 Atorvastatin 40 Mg Tab PO 40 mg QHS ISHMAEL Administration Carvedilol 25 mg 08/23/21 10:00 08/27/21 09:59 Carvedilol 25 Mg Tab PO 25 mg BID ISHMAEL Administration Clopidogrel Bisulfate 75 mg 08/20/21 12:00 08/27/21 09:59 Clopidogrel 75 Mg Tab PO 75 mg QDAY ISHMAEL Administration Doxazosin Mesylate 2 mg 08/20/21 14:00 08/27/21 10:00 Doxazosin 1 Mg Tab PO 2 mg QDAY ISHMAEL Administration Furosemide 40 mg 08/19/21 06:00 08/27/21 17:04 Furosemide 40 Mg/4 Ml Inj IV 40 mg BID@0600,1800 ISHMAEL Administration Hydralazine HCl 100 mg 08/20/21 09:00 08/27/21 13:40 Hydralazine 100 Mg Tab PO 100 mg Q8HR ISHMAEL Administration Sodium Chloride 100 mls @ 999 mls/hr 08/25/21 18:02 Nacl 0.9% IV KIMBERLY PRN Hypotension Sodium Chloride 100 mls @ 999 mls/hr 08/27/21 11:54 Nacl 0.9% IV KIMBERLY PRN Hypotension Isosorbide Mononitrate 30 mg 08/19/21 16:00 08/27/21 10:00 Isosorbide Mononitrate Er 30 Mg Tab PO 30 mg QDAY ISHMAEL Administration Morphine Sulfate 2 mg 08/19/21 04:39 08/25/21 17:48 Morphine 2 Mg/1 Ml Inj IV 2 mg Q4H PRN Administration Pain, Moderate (4-6) Morphine Sulfate 4 mg 08/19/21 04:39 Morphine 4 Mg/1 Ml Inj IV Q4H PRN Pain , Severe (7-10) Nifedipine 60 mg 08/20/21 12:00 08/27/21 10:00 Nifedipine Xl 60 Mg Tab PO 60 mg Q12HR ISHMAEL Administration Ondansetron HCl 4 mg 08/19/21 04:39 Ondansetron 4 Mg/2 Ml Inj IV Q8H PRN Nausea And Vomiting Potassium Chloride 40 meq 08/27/21 16:18 08/27/21 17:04 Potassium Chloride Er 20 Meq Tab PO 08/27/21 23:00 40 meq ONCE ISHMAEL Administration Ropinirole HCl 0.25 mg 08/23/21 22:00 08/26/21 21:20 Ropinirole 0.25 Mg Tab PO 0.25 mg QHS ISHMAEL Administration Sodium Chloride 10 ml 08/19/21 10:00 08/27/21 10:00 Sodium Chloride 0.9% 10 Ml Flush Syringe IV 10 ml BID ISHMAEL Administration Sodium Chloride 10 ml 08/19/21 04:39 08/21/21 18:39 Sodium Chloride 0.9% 10 Ml Flush Syringe IV 10 ml PRN PRN Administration LINE FLUSH Zolpidem Tartrate 10 mg 08/23/21 15:18 08/24/21 22:09 Zolpidem 5 Mg Tab PO 10 mg QHS PRN Administration Sleep Nutrition/Malnutrition Assess - Dietary Evaluation Nutrition/Malnutrition Findings: Nutrition Notes Start: 08/27/21 15:09 Freq: Status: Active Protocol: Document 08/27/21 15:09 LOREN (Rec: 08/27/21 15:38 LOREN [id number]) Nutrition Notes Need for Assessment generated from: LOS Initial or Follow up Assessment Current Diagnosis CKD (stage V CKD),Coronary Artery Disease,Hypertension, Heart Failure Other Pertinent Diagnosis ESRD+HD, Bilateral-LE Edema, Atrial Fibrilation. Current Diet Renal Diet (since B 08/25). Labs/Tests 08/27: K 3.4, BUN 38, Crea 5.2 , Glu 116, Phos 5.0. Pertinent Medications 08/27: Nutritionally unremarkable. 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 Weight Status Morbidly Obese Subjective/Other Information RD consult for LOS assessment. Pt's PO intake has been Good ( 100%), according to ADL notes. Pt is on Room Air, O2 saturation @ 96%, according to Physical Assessment History notes. Pt presents an unspecified area of concern for skin risk , according to Physical Assessment History notes. Percent of energy/protein needs met: Prescribed Renal Diet provides for energy/protein needs (2, 072 Kcal/77 g) during LOS. Burn Absent Trauma Absent GI Symptoms None Food Allergy No Skin Integrity/Comment Unspecified area of concern. 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 As Evidenced by Signs and Symptoms High BMI: 43.1 Kg/m2 Is patient on ventilator? No Is Patient Ambulatory and/or Out of Bed No REE-([facility]-confined to bed) 2553.420 Kcal/Kg value to use for calculation 15 Approximate Energy Requirements Using 1986 kcal/Kg Calculation Used for Recommendations Kcal/kg Additional Notes Protein: >1.2 g/Kg AdjBW; >124 g/day. Fluids: 1 ml/Kcal, or as per MD. Nutrition Intervention Change Diet Order: Continue Renal Diet. Goal #1 Adjust the dietary intervention to better serve Pt's needs and clinical conditions during LOS. Revisit per MD consult or patient Sign Off request: Additional Comments Continue monitoring food tolerance, %PO intake of meals , and BM.
[2021-08-27] MEDS: rOPINIRole 0.25 MG TAB PO SCH (21:39)
[2021-08-28 05:23] LABS: Basophils # (Auto) 0.1 K/mm3 (0.0-0.1); Basophils % (Auto) 0.7 % (0.0-1.8); Eosinophils # (Auto) 0.1 K/mm3 (0.0-0.4); Eosinophils % (Auto) 1.5 % (0.0-4.3); Hematocrit 32.9 % (35.5-45.6); Hemoglobin 10.8 gm/dl (11.8-15.2); Lymphocytes # (Auto) 1.5 K/mm3 (1.2-5.4); Lymphocytes % (Auto) 19.7 % (13.4-35.0); Mean Corpuscular HGB Conc 33 % (32-34); Mean Corpuscular Volume 98 fl (84-94); Monocytes # (Auto) 0.9 K/mm3 (0.0-0.8); Monocytes % (Auto) 12.3 % (0.0-7.3); Platelet Count 203 K/mm3 (140-440); Red Blood Count 3.37 M/mm3 (3.65-5.03); Red Cell Distribution Width 14.6 % (13.2-15.2)
[2021-08-28] MEDS: FUROSEMIDE 40 MG/4 ML INJ IV SCH (05:41)
[2021-08-28] MEDS: hydrALAZINE 100 MG TAB PO SCH ×3 (05:41→22:43)
[2021-08-28 05:42] LABS: Calcium 8.5 mg/dL (8.4-10.2)
--- NOTE | 2021-08-28 12:13 | Progress Note ---
Assessment and Plan Acute on CKD/ESRD - HD today. Outpt HD at [facility]. Dr. vAila to follow HTN - F/u on meds CAD/AFib - Stable, back on Eliquis & f/u per Cardiology SOB/Pulm Congestion - UF on HD today & repeat isolated UF in am F/u d/c plan Subjective Date of service: 08/28/21 Principal diagnosis: Fluid overload, end-stage renal failure, chronic atrial fibrillation Interval history: No new complaint Objective - Vital Signs Vital signs: Vital Signs - 12hr 08/28/21 08/28/21 08/28/21 03:26 09:55 10:15 Temperature 97.7 F 98.2 F Pulse Rate 83 81 68 Respiratory 20 20 Rate Blood Pressure 99/56 119/94 152/109 O2 Sat by Pulse 97 Oximetry O2 Sat by Pulse 97 Oximetry [ Anterior Bilateral Throughout] 08/28/21 08/28/21 08/28/21 10:30 10:45 11:00 Temperature Pulse Rate 84 88 62 Respiratory Rate Blood Pressure 169/109 177/95 199/100 O2 Sat by Pulse Oximetry O2 Sat by Pulse Oximetry [ Anterior Bilateral Throughout] 08/28/21 08/28/21 11:15 11:30 Temperature Pulse Rate 52 L 57 L Respiratory Rate Blood Pressure 146/105 130/99 O2 Sat by Pulse Oximetry O2 Sat by Pulse Oximetry [ Anterior Bilateral Throughout] - General Appearance General appearance: other (Awake & alert) EENT: PERRL, hearing intact Neck: no JVD, supple Respiratory: Present: Other (Good air entry) Cardiology: regular, S1S2 Gastrointestinal: obese Neurologic: alert and oriented x3 - Lab 08/28/21 04:14 08/28/21 04:14 Most recent lab results Calcium 8.5 mg/dL (8.4-10.2) 08/28/21 04:14 Phosphorus 5.00 mg/dL (2.5-4.5) H 08/27/21 04:59 Magnesium 2.20 mg/dL (1.7-2.3) 08/27/21 04:59 Medications & Allergies - Medications Allergies/Adverse Reactions: Allergies lisinopril Allergy (Verified 08/20/21 07:52) Coughing Home Medications: Home Medications Medication Instructions Recorded Confirmed Last Taken Type Amlodipine Besylate [Norvasc] 5 mg PO QDAY 08/20/21 08/20/21 Unknown History AtorvaSTATin [Lipitor] 40 mg PO QHS 08/20/21 08/20/21 Unknown History Doxazosin Mesylate [Cardura] 2 mg PO DAILY 08/20/21 08/20/21 Unknown History Furosemide [Lasix TAB] 80 mg PO QDAY 08/20/21 08/20/21 Unknown History ISOSORBIDE MONOnitrate [Imdur ER] 60 mg PO QDAY 08/20/21 08/20/21 Unknown History Rivaroxaban [Xarelto] 20 mg PO QDAY 08/20/21 08/20/21 Unknown History Sertraline [Zoloft] 50 mg PO QDAY 08/20/21 08/20/21 Unknown History Torsemide [Demadex] 20 mg PO QDAY 08/20/21 08/20/21 Unknown History allopurinoL [Zyloprim] 100 mg PO QDAY 08/20/21 08/20/21 Unknown History carvediloL [Coreg] 25 mg PO QDAY 08/20/21 08/20/21 Unknown History cloNIDine HCL [Clonidine HCl] 0.3 mg PO QDAY 08/20/21 08/20/21 Unknown History glipiZIDE [Glipizide ER] 2.5 mg PO QDAY 08/20/21 08/20/21 Unknown History Active Medications: Generic Name Dose Route Start Last Admin Trade Name Freq PRN Reason Stop Dose Admin Acetaminophen 650 mg 08/19/21 04:39 08/26/21 10:39 Acetaminophen 325 Mg Tab PO 650 mg Q4H PRN Administration Pain MILD(1-3)/Fever >100.5/DE LA PAZ Allopurinol 100 mg 08/20/21 14:00 08/27/21 10:00 Allopurinol 100 Mg Tab PO 100 mg QDAY ISHMAEL Administration Apixaban 2.5 mg 08/26/21 22:00 08/27/21 21:39 Apixaban 2.5 Mg Tab PO 2.5 mg Q12HR ISHMAEL Administration Protocol Aspirin 81 mg 08/20/21 12:00 08/27/21 10:00 Aspirin Ec 81 Mg Tab PO 81 mg QDAY ISHMAEL Administration Atorvastatin Calcium 40 mg 08/20/21 22:00 08/27/21 21:39 Atorvastatin 40 Mg Tab PO 40 mg QHS ISHMAEL Administration Carvedilol 25 mg 08/23/21 10:00 08/27/21 21:40 Carvedilol 25 Mg Tab PO 25 mg BID ISHMAEL Administration Clopidogrel Bisulfate 75 mg 08/20/21 12:00 08/27/21 09:59 Clopidogrel 75 Mg Tab PO 75 mg QDAY ISHMAEL Administration Doxazosin Mesylate 2 mg 08/20/21 14:00 08/27/21 10:00 Doxazosin 1 Mg Tab PO 2 mg QDAY ISHMAEL Administration Furosemide 40 mg 08/19/21 06:00 08/28/21 05:41 Furosemide 40 Mg/4 Ml Inj IV Not Given BID@0600,1800 [facility] Hydralazine HCl 100 mg 08/20/21 09:00 08/28/21 05:41 Hydralazine 100 Mg Tab PO Not Given Q8HR ISHMAEL Sodium Chloride 100 mls @ 999 mls/hr 08/25/21 18:02 Nacl 0.9% IV KIMBERLY PRN Hypotension Sodium Chloride 100 mls @ 999 mls/hr 08/27/21 11:54 Nacl 0.9% IV KIMBERLY PRN Hypotension Isosorbide Mononitrate 30 mg 08/19/21 16:00 08/27/21 10:00 Isosorbide Mononitrate Er 30 Mg Tab PO 30 mg QDAY [facility] Administration Morphine Sulfate 2 mg 08/19/21 04:39 08/25/21 17:48 Morphine 2 Mg/1 Ml Inj IV 2 mg Q4H PRN Administration Pain, Moderate (4-6) Morphine Sulfate 4 mg 08/19/21 04:39 Morphine 4 Mg/1 Ml Inj IV Q4H PRN Pain , Severe (7-10) Nifedipine 60 mg 08/20/21 12:00 08/27/21 21:39 Nifedipine Xl 60 Mg Tab PO 60 mg Q12HR ISHMAEL Administration Ondansetron HCl 4 mg 08/19/21 04:39 Ondansetron 4 Mg/2 Ml Inj IV Q8H PRN Nausea And Vomiting Ropinirole HCl 0.25 mg 08/23/21 22:00 08/27/21 21:39 Ropinirole 0.25 Mg Tab PO 0.25 mg QHS ISHMAEL Administration Sodium Chloride 10 ml 08/19/21 10:00 08/27/21 21:40 Sodium Chloride 0.9% 10 Ml Flush Syringe IV 10 ml BID ISHMAEL Administration Sodium Chloride 10 ml 08/19/21 04:39 08/21/21 18:39 Sodium Chloride 0.9% 10 Ml Flush Syringe IV 10 ml PRN PRN Administration LINE FLUSH Zolpidem Tartrate 10 mg 08/23/21 15:18 08/24/21 22:09 Zolpidem 5 Mg Tab PO 10 mg QHS PRN Administration Sleep
[2021-08-28] MEDS: DOXAZOSIN 1 MG TAB PO SCH (12:57)
[2021-08-28] MEDS: carvediloL 25 MG TAB PO SCH ×2 (12:57→22:43)
--- NOTE | 2021-08-28 13:22 | Progress Note ---
Assessment and Plan - Patient Problems (1) Edema Current Visit: Yes Status: Acute Plan to address problem: Patient presents with shortness of breath and lower extremity edema. Symptoms suggest fluid overload, which may be noncardiogenic in the setting of end-stage renal failure. His creatinine is severely elevated 4.5-4.7. He is post permacath placement and started hemodialysis. Echocardiogram shows left ventricular systolic function is relatively well- preserved with ejection fraction only mildly impaired at 45%. (2) Atrial fibrillation Current Visit: Yes Status: Acute Plan to address problem: Patient has atrial fibrillation which is likely chronic, was noted on a previous EKG 4 months ago. Rate control is optimal, but patient will benefit from long- term anticoagulation therapy. We will resume low-dose Eliquis, which was on hold for his permacath procedure. (3) Coronary artery disease Current Visit: Yes Status: Acute Plan to address problem: Patient reports a history of coronary artery disease with coronary stent placement a year and a half ago when he lived in [place]. He has no chest pain or symptoms of coronary ischemia at this time, we will resume guideline directed medical therapy and risk factor modification. Due to his vague description of the timeline of his coronary intervention, and the absence of his outpatient records, we have elected to continue dual oral antiplatelet therapy until his records are available to properly determine duration of antiplatelet management. (4) Uncontrolled hypertension Current Visit: Yes Status: Acute Plan to address problem: Patient systolic blood pressure is now well controlled with the addition of Procardia XL 60 mg twice daily. Subjective Date of service: 08/28/21 Principal diagnosis: Fluid overload, end-stage renal failure, chronic atrial fibrillation Interval history: Patient is comfortable, routine dialysis completed today. No new cardiac complaints, no new cardiac events reported. Objective Vital Signs Temp Pulse Resp BP Pulse Ox Pulse Ox 08/28/21 12:00 52 L 149/92 08/28/21 11:45 55 L 151/105 08/28/21 11:30 57 L 130/99 08/28/21 11:15 52 L 146/105 08/28/21 11:00 62 199/100 08/28/21 10:45 88 177/95 08/28/21 10:30 84 169/109 08/28/21 10:15 68 152/109 08/28/21 09:55 98.2 F 81 20 119/94 97 08/28/21 03:26 97.7 F 83 20 99/56 97 08/27/21 23:25 18 97 08/27/21 23:19 98.6 F 51 L 16 109/84 98 08/27/21 21:00 82 21 99 08/27/21 20:53 90 08/27/21 20:32 90 20 114/83 98 08/27/21 19:17 98.5 F 60 16 144/112 98 08/27/21 15:26 99.0 F 20 113/67 - Physical Examination General: No Apparent Distress HEENT: Positive: PERRL Neck: Positive: neck supple Cardiac: Positive: irregularly irregular Lungs: Positive: Decreased Breath Sounds Neuro: Positive: Grossly Intact Abdomen: Positive: Soft Skin: Positive: Clear Extremities: Present: edema - Labs and Meds CBC 08/28/21 Range/Units 04:14 WBC 7.5 (4.5-11.0) K/mm3 RBC 3.37 L (3.65-5.03) M/mm3 Hgb 10.8 L (11.8-15.2) gm/dl Hct 32.9 L (35.5-45.6) % Plt Count 203 (140-440) K/mm3 Lymph # (Auto) 1.5 (1.2-5.4) K/mm3 Jack # (Auto) 0.9 H (0.0-0.8) K/mm3 Eos # (Auto) 0.1 (0.0-0.4) K/mm3 Baso # (Auto) 0.1 (0.0-0.1) K/mm3 Comprehensive Metabolic Panel 08/28/21 Range/Units 04:14 Sodium 139 (137-145) mmol/L Potassium 3.6 (3.6-5.0) mmol/L Chloride 99.0 (98-107) mmol/L Carbon Dioxide 23 (22-30) mmol/L BUN 52 H (9-20) mg/dL Creatinine 6.2 H (0.8-1.3) mg/dL Glucose 116 H (75-100) mg/dL Calcium 8.5 (8.4-10.2) mg/dL
[2021-08-28] MEDS: ASPIRIN EC 81 MG TAB PO SCH (13:23)
[2021-08-28] MEDS: allopurinoL 100 MG TAB PO SCH (13:23)
[2021-08-28] MEDS: APIXABAN 2.5 MG TAB PO SCH ×2 (13:23→22:43)
[2021-08-28] MEDS: CLOPIDOGREL 75 MG TAB PO SCH (13:24)
[2021-08-28] MEDS: NIFEdipine XL 60 MG TAB PO SCH ×2 (13:25→22:44)
[2021-08-28] MEDS: FUROSEMIDE 40 MG TAB PO SCH (19:15)
--- NOTE | 2021-08-28 20:54 | Progress Note ---
Assessment and Plan Assessment and plan: 60-year-old -[place] male with known history of CHF, chronic kidney disease presenting to the emergency room complaining of progressive swelling of his lower extremities and shortness of breath which has been ongoing for the past 2 weeks. Work-up in the emergency room today EKG shows atrial fibrillation, chest x-ray was unremarkable. Labs reveals elevated BNP of 2022, potassium 3.3. BUN of 47 and creatinine of 4.7 Patient was admitted for CHF exacerbation Nephrology decided to initiate hemodialysis Vascular consulted for right internal jugular tunneled cuffed hemodialysis catheter placement Followed by hemodialysis Assessment --Acute systolic CHF exacerbation EF 40-45% Continue antifailure medications, cardiology following --Atrial fibrillation-possibly chronic; Low-dose Eliquis[resume post hemodialysis catheter placement if okay with vascular] Continue current cardiac medications --CHRISTIANO on Chronic kidney disease, likely progressed to ESRD; s/p hemodialysis catheter placement, new hemodialysis Outpatient HD placement per case management --Hypokalemia; closely monitor electrolytes --Morbid obesity with sleep apnea; Need to follow fashion editor for sleep study CPAP BiPAP upon discharge --Hypertension; uncontrolled Continue current antihypertensives and adjust as needed Follow consultants evaluation and recommendations Possible outpatient HD placement per case management prior to discharge Closely monitor the patient and adjust management as needed Plan of care reviewed with the patient and his nurse as well as the case management Plan: 08/19 Patient was admitted for CHF exacerbation, 2D echo showed EF of 45% Cardiology consulted, continue diuresis, follow cardiology recommendation 08/20 -- Continue diuretics, replete electrolytes as needed -- Renal function slightly improved today, continue to follow BMP -- BP still remains uncontrolled and SBP at 180s -we will continue to adjust me dications, will avoid nephrotoxins -- Continue to follow clinically follow nephrology and cardiology recommendation -- Patient placed on anticoagulation with Eliquis -- Continue CPAP at bedtime 08/21: Creatinine continue to trend up, continue to follow. Add ambien I at bedtime for sleep 08/22: Cr cont to trend up, discussed with nephrology. plan to start HD likely from Wednesday 08/23: cont to monitor BMP, likely to start HD from next week 08/24: Plan to initiate hemodialysis, consulted vascular to place PermCath -which is scheduled for tomorrow, n.p.o. after midnight 08/25/2021 right internal jugular tunneled cuffed hemodialysis catheter placement today Patient received hemodialysis 08/26/2021; patient is on dialysis, CM to assist with outpatient chair for dialysis DC planning per case management. 08/27/2021; case management set up outpatient HD chair timings Chair days/time: Tuesday,,Tuesday at 5:30am, 1st treatment outpatient is set for Tuesday at 5:30am,patient will need to arrive to the clinic at 5am to sign paperwork,bring ID,insurance card. SW notified. will continue to follow. PT evaluated the patient recommend home health PT, patient already has CPAP at home Possible discharge home tomorrow if stable Plan of care reviewed with the patient, his nurse and the case management 08/28/2021; patient's first outpatient HD is on September 01, patient will receive hemodialysis tomorrow per nephrology DC planning per case management History Interval history: I have seen and examined the patient at the bedside Patient's chart and medications reviewed Has no new complaints Vital signs noted Hospitalist Physical - Constitutional Vitals: Temp Pulse Resp BP Pulse Ox 97.0 F L 78 20 168/92 97 08/28/21 12:20 08/28/21 13:24 08/28/21 12:20 08/28/21 13:24 08/28/21 12:20 General appearance: Present: no acute distress, well-nourished, obese (Morbidly obese) - EENT Eyes: Present: PERRL, EOM intact - Neck Neck: Present: supple, normal ROM - Respiratory Respiratory effort: normal Respiratory: bilateral: diminished, negative: rales, rhonchi, wheezing - Cardiovascular Rhythm: regular Heart Sounds: Present: S1 & S2 - Extremities Extremities: no ischemia, No edema - Abdominal General gastrointestinal: soft, non-tender, non-distended, normal bowel sounds - Integumentary Integumentary: Present: clear, warm - Psychiatric Psychiatric: appropriate mood/affect, cooperative - Neurologic Neurologic: CNII-XII intact HEART Score - HEART Score Troponin: Troponin T 0.022 ng/mL (0.00-0.029) 08/18/21 17:25 Results - Labs CBC & Chem 7: 08/28/21 04:14 08/29/21 05:32 Labs: Laboratory Last Values WBC 7.5 K/mm3 (4.5-11.0) 08/28/21 04:14 RBC 3.37 M/mm3 (3.65-5.03) L 08/28/21 04:14 Hgb 10.8 gm/dl (11.8-15.2) L 08/28/21 04:14 Hct 32.9 % (35.5-45.6) L 08/28/21 04:14 MCV 98 fl (84-94) H 08/28/21 04:14 MCH 32 pg (28-32) 08/28/21 04:14 MCHC 33 % (32-34) 08/28/21 04:14 RDW 14.6 % (13.2-15.2) 08/28/21 04:14 Plt Count 203 K/mm3 (140-440) 08/28/21 04:14 Lymph % (Auto) 19.7 % (13.4-35.0) 08/28/21 04:14 [place] % (Auto) 12.3 % (0.0-7.3) H 08/28/21 04:14 Eos % (Auto) 1.5 % (0.0-4.3) 08/28/21 04:14 Baso % (Auto) 0.7 % (0.0-1.8) 08/28/21 04:14 Lymph # (Auto) 1.5 K/mm3 (1.2-5.4) 08/28/21 04:14 [place] # (Auto) 0.9 K/mm3 (0.0-0.8) H 08/28/21 04:14 Eos # (Auto) 0.1 K/mm3 (0.0-0.4) 08/28/21 04:14 Baso # (Auto) 0.1 K/mm3 (0.0-0.1) 08/28/21 04:14 Add Manual Diff Complete 08/26/21 05:31 Total Counted 100 08/26/21 05:31 Seg Neutrophils % 65.8 % (40.0-70.0) 08/28/21 04:14 Seg Neuts % (Manual) 83.0 % (40.0-70.0) H 08/26/21 05:31 Band Neutrophils % 0 % 08/26/21 05:31 Lymphocytes % (Manual) 8.0 % (13.4-35.0) L 08/26/21 05:31 Reactive Lymphs % (Man) 0 % 08/26/21 05:31 Monocytes % (Manual) 9.0 % (0.0-7.3) H 08/26/21 05:31 Eosinophils % (Manual) 0 % (0.0-4.3) 08/26/21 05:31 Basophils % (Manual) 0 % (0.0-1.8) 08/26/21 05:31 Metamyelocytes % 0 % 08/26/21 05:31 Myelocytes % 0 % 08/26/21 05:31 Promyelocytes % 0 % 08/26/21 05:31 Blast Cells % 0 % 08/26/21 05:31 Nucleated RBC % Not Reportable 08/26/21 05:31 Seg Neutrophils # 4.9 K/mm3 (1.8-7.7) 08/28/21 04:14 Seg Neutrophils # Man 6.2 K/mm3 (1.8-7.7) 08/26/21 05:31 Band Neutrophils # 0.0 K/mm3 08/26/21 05:31 Lymphocytes # (Manual) 0.6 K/mm3 (1.2-5.4) L 08/26/21 05:31 Abs React Lymphs (Man) 0.0 K/mm3 08/26/21 05:31 Monocytes # (Manual) 0.7 K/mm3 (0.0-0.8) 08/26/21 05:31 Eosinophils # (Manual) 0.0 K/mm3 (0.0-0.4) 08/26/21 05:31 Basophils # (Manual) 0.0 K/mm3 (0.0-0.1) 08/26/21 05:31 Metamyelocytes # 0.0 K/mm3 08/26/21 05:31 Myelocytes # 0.0 K/mm3 08/26/21 05:31 Promyelocytes # 0.0 K/mm3 08/26/21 05:31 Blast Cells # 0.0 K/mm3 08/26/21 05:31 WBC Morphology Not Reportable 08/26/21 05:31 Hypersegmented Neuts Not Reportable 08/26/21 05:31 Hyposegmented Neuts Not Reportable 08/26/21 05:31 Hypogranular Neuts Not Reportable 08/26/21 05:31 Smudge Cells Not Reportable 08/26/21 05:31 Toxic Granulation Not Reportable 08/26/21 05:31 Toxic Vacuolation Not Reportable 08/26/21 05:31 Dohle Bodies Not Reportable 08/26/21 05:31 Pelger-Huet Anomaly Not Reportable 08/26/21 05:31 Sharath Rods Not Reportable 08/26/21 05:31 Platelet Estimate Consistent w auto 08/26/21 05:31 Clumped Platelets Not Reportable 08/26/21 05:31 Plt Clumps, EDTA Not Reportable 08/26/21 05:31 Large Platelets Not Reportable 08/26/21 05:31 Giant Platelets Not Reportable 08/26/21 05:31 Platelet Satelliting Not Reportable 08/26/21 05:31 Plt Morphology Comment Not Reportable 08/26/21 05:31 RBC Morphology Not Reportable 08/26/21 05:31 Dimorphic RBCs Not Reportable 08/26/21 05:31 Polychromasia Not Reportable 08/26/21 05:31 Hypochromasia Not Reportable 08/26/21 05:31 Poikilocytosis Not Reportable 08/26/21 05:31 Anisocytosis 1+ 08/26/21 05:31 Microcytosis Not Reportable 08/26/21 05:31 Macrocytosis Not Reportable 08/26/21 05:31 Spherocytes Not Reportable 08/26/21 05:31 Pappenheimer Bodies Not Reportable 08/26/21 05:31 Sickle Cells Not Reportable 08/26/21 05:31 Target Cells Not Reportable 08/26/21 05:31 Tear Drop Cells Not Reportable 08/26/21 05:31 Ovalocytes Not Reportable 08/26/21 05:31 Helmet Cells Not Reportable 08/26/21 05:31 [place] Bodies Not Reportable 08/26/21 05:31 [place] Rings Not Reportable 08/26/21 05:31 [place] Cells Not Reportable 08/26/21 05:31 Bite Cells Not Reportable 08/26/21 05:31 Crenated Cell Not Reportable 08/26/21 05:31 Elliptocytes Not Reportable 08/26/21 05:31 Acanthocytes (Spur) Not Reportable 08/26/21 05:31 Rouleaux Not Reportable 08/26/21 05:31 Hemoglobin C Crystals Not Reportable 08/26/21 05:31 Schistocytes Not Reportable 08/26/21 05:31 Malaria parasites Not Reportable 08/26/21 05:31 Delfino Bodies Not Reportable 08/26/21 05:31 Hem Pathologist Commnt No 08/26/21 05:31 PT 15.4 Sec. (12.2-14.9) H 08/26/21 11:39 INR 1.09 (0.87-1.13) 08/26/21 11:39 APTT 30.4 Sec. (24.2-36.6) 08/26/21 11:39 Sodium 139 mmol/L (137-145) 08/28/21 04:14 Potassium 3.6 mmol/L (3.6-5.0) 08/28/21 04:14 Chloride 99.0 mmol/L (98-107) 08/28/21 04:14 Carbon Dioxide 23 mmol/L (22-30) 08/28/21 04:14 Anion Gap 21 mmol/L 08/28/21 04:14 BUN 52 mg/dL (9-20) H 08/28/21 04:14 Creatinine 6.2 mg/dL (0.8-1.3) H 08/28/21 04:14 Estimated GFR 9 ml/min 08/28/21 04:14 BUN/Creatinine Ratio 8 % 08/28/21 04:14 Glucose 116 mg/dL (75-100) H 08/28/21 04:14 Calcium 8.5 mg/dL (8.4-10.2) 08/28/21 04:14 Phosphorus 5.00 mg/dL (2.5-4.5) H 08/27/21 04:59 Magnesium 2.20 mg/dL (1.7-2.3) 08/27/21 04:59 Total Bilirubin 0.50 mg/dL (0.1-1.2) 08/27/21 04:59 Direct Bilirubin < 0.2 mg/dL (0-0.2) 08/25/21 14:15 Indirect Bilirubin 0.3 mg/dL 08/25/21 14:15 AST 12 units/L (5-40) 08/27/21 04:59 ALT 6 units/L (7-56) L 08/27/21 04:59 Alkaline Phosphatase 84 units/L (35-129) 08/27/21 04:59 Troponin T 0.022 ng/mL (0.00-0.029) 08/18/21 17:25 NT-Pro-B Natriuret Pep 2023 pg/mL (0-900) H 08/18/21 11:45 Total Protein 7.1 g/dL (6.3-8.2) 08/27/21 04:59 Albumin 3.6 g/dL (3.9-5) L 08/27/21 04:59 Albumin/Globulin Ratio 1.0 % 08/27/21 04:59 PTH Intact 350.9 pg/mL (15-65) H 08/20/21 05:21 Coronavirus (PCR) Negative (Negative) 08/26/21 08:01 Hepatitis A IgM Ab Non-reactive (NonReactive) 08/24/21 15:10 Hep Bs Antigen Non-reactive (Negative) 08/24/21 15:10 Hep B Core IgM Ab Non-reactive (NonReactive) 08/24/21 15:10 Hepatitis C Antibody Non-reactive (NonReactive) 08/24/21 15:10 Evangelista/IV: Voiding Method Urinal Active Medications - Current Medications Current Medications: Generic Name Dose Route Start Last Admin Trade Name Freq PRN Reason Stop Dose Admin Acetaminophen 650 mg 08/19/21 04:39 08/26/21 10:39 Acetaminophen 325 Mg Tab PO 650 mg Q4H PRN Administration Pain MILD(1-3)/Fever >100.5/DE LA PAZ Allopurinol 100 mg 08/20/21 14:00 08/28/21 13:23 Allopurinol 100 Mg Tab PO 100 mg QDAY ISHMAEL Administration Apixaban 2.5 mg 08/26/21 22:00 08/28/21 13:23 Apixaban 2.5 Mg Tab PO 2.5 mg Q12HR ISHMAEL Administration Protocol Aspirin 81 mg 08/20/21 12:00 08/28/21 13:23 Aspirin Ec 81 Mg Tab PO 81 mg QDAY ISHMAEL Administration Atorvastatin Calcium 40 mg 08/20/21 22:00 08/27/21 21:39 Atorvastatin 40 Mg Tab PO 40 mg QHS ISHMAEL Administration Carvedilol 25 mg 08/23/21 10:00 08/28/21 12:57 Carvedilol 25 Mg Tab PO Not Given BID [facility] Clopidogrel Bisulfate 75 mg 08/20/21 12:00 08/28/21 13:24 Clopidogrel 75 Mg Tab PO 75 mg QDAY ISHMAEL Administration Doxazosin Mesylate 2 mg 08/20/21 14:00 08/28/21 12:57 Doxazosin 1 Mg Tab PO Not Given QDAY ISHMAEL Furosemide 40 mg 08/28/21 20:00 08/28/21 19:15 Furosemide 40 Mg Tab PO 40 mg 0600,1800 ISHMAEL Administration Hydralazine HCl 100 mg 08/20/21 09:00 08/28/21 13:24 Hydralazine 100 Mg Tab PO 100 mg Q8HR ISHMAEL Administration Sodium Chloride 100 mls @ 999 mls/hr 08/27/21 11:54 Nacl 0.9% IV KIMBERLY PRN Hypotension Isosorbide Mononitrate 30 mg 08/19/21 16:00 08/28/21 13:24 Isosorbide Mononitrate Er 30 Mg Tab PO 30 mg QDAY [facility] Administration Morphine Sulfate 2 mg 08/19/21 04:39 08/25/21 17:48 Morphine 2 Mg/1 Ml Inj IV 2 mg Q4H PRN Administration Pain, Moderate (4-6) Morphine Sulfate 4 mg 08/19/21 04:39 Morphine 4 Mg/1 Ml Inj IV Q4H PRN Pain , Severe (7-10) Nifedipine 60 mg 08/20/21 12:00 08/28/21 13:25 Nifedipine Xl 60 Mg Tab PO 60 mg Q12HR ISHMAEL Administration Ondansetron HCl 4 mg 08/19/21 04:39 Ondansetron 4 Mg/2 Ml Inj IV Q8H PRN Nausea And Vomiting Ropinirole HCl 0.25 mg 08/23/21 22:00 08/27/21 21:39 Ropinirole 0.25 Mg Tab PO 0.25 mg QHS ISHMAEL Administration Sodium Chloride 10 ml 08/19/21 10:00 08/28/21 13:23 Sodium Chloride 0.9% 10 Ml Flush Syringe IV 10 ml BID ISHMAEL Administration Sodium Chloride 10 ml 08/19/21 04:39 08/21/21 18:39 Sodium Chloride 0.9% 10 Ml Flush Syringe IV 10 ml PRN PRN Administration LINE FLUSH Zolpidem Tartrate 10 mg 08/23/21 15:18 08/24/21 22:09 Zolpidem 5 Mg Tab PO 10 mg QHS PRN Administration Sleep Nutrition/Malnutrition Assess - Dietary Evaluation Nutrition/Malnutrition Findings: Nutrition Notes Start: 08/27/21 15:09 Freq: Status: Active Protocol: Document 08/27/21 15:09 LOREN (Rec: 08/27/21 15:38 LOREN [email or web address]) Nutrition Notes Need for Assessment generated from: LOS Initial or Follow up Assessment Current Diagnosis CKD (stage V CKD),Coronary Artery Disease,Hypertension, Heart Failure Other Pertinent Diagnosis ESRD+HD, Bilateral-LE Edema, Atrial Fibrilation. Current Diet Renal Diet (since B 08/25). Labs/Tests 08/27: K 3.4, BUN 38, Crea 5.2 , Glu 116, Phos 5.0. Pertinent Medications 08/27: Nutritionally unremarkable. 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 Weight Status Morbidly Obese Subjective/Other Information RD consult for LOS assessment. Pt's PO intake has been Good ( 100%), according to ADL notes. Pt is on Room Air, O2 saturation @ 96%, according to Physical Assessment History notes. Pt presents an unspecified area of concern for skin risk , according to Physical Assessment History notes. Percent of energy/protein needs met: Prescribed Renal Diet provides for energy/protein needs (2, 072 Kcal/77 g) during LOS. Burn Absent Trauma Absent GI Symptoms None Food Allergy No Skin Integrity/Comment Unspecified area of concern. Current % PO Good (75-100%) Minimum of two criteria No Fluid Accumulation Moderate to Severe (severe) Reduced Bilingual Interpreter Strength N/A (non-severe) Protein-Calorie Malnutrition N\A #1 Nutrition Diagnosis Overweight/obesity Etiology Uncertain. As Evidenced by Signs and Symptoms High BMI: 43.1 Kg/m2 Is patient on ventilator? No Is Patient Ambulatory and/or Out of Bed No REE-([place]-confined to bed) [phone] Kcal/Kg value to use for calculation 15 Approximate Energy Requirements Using 1986 kcal/Kg Calculation Used for Recommendations Kcal/kg Additional Notes Protein: >1.2 g/Kg AdjBW; >124 g/day. Fluids: 1 ml/Kcal, or as per MD. Nutrition Intervention Change Diet Order: Continue Renal Diet. Goal #1 Adjust the dietary intervention to better serve Pt's needs and clinical conditions during LOS. Revisit per MD consult or patient Sign Off request: Additional Comments Continue monitoring food tolerance, %PO intake of meals , and BM.
[2021-08-28] MEDS: rOPINIRole 0.25 MG TAB PO SCH (22:44)
[2021-08-29] MEDS: FUROSEMIDE 40 MG TAB PO SCH (05:40)
[2021-08-29] MEDS: hydrALAZINE 100 MG TAB PO SCH ×2 (05:41→15:15)
[2021-08-29] MEDS: APIXABAN 2.5 MG TAB PO SCH (09:22)
[2021-08-29] MEDS: ASPIRIN EC 81 MG TAB PO SCH (09:22)
[2021-08-29] MEDS: allopurinoL 100 MG TAB PO SCH (09:23)
[2021-08-29] MEDS: CLOPIDOGREL 75 MG TAB PO SCH (09:23)
--- NOTE | 2021-08-29 09:40 | Progress Note ---
Assessment and Plan - Patient Problems (1) Edema Current Visit: Yes Status: Acute Plan to address problem: Patient presents with shortness of breath and lower extremity edema. Symptoms suggest fluid overload, which may be noncardiogenic in the setting of end-stage renal failure. His creatinine is severely elevated 4.5-4.7. He is post permacath placement and started hemodialysis. Echocardiogram shows left ventricular systolic function is relatively well- preserved with ejection fraction only mildly impaired at 45%. (2) Atrial fibrillation Current Visit: Yes Status: Acute Plan to address problem: Patient has atrial fibrillation which is likely chronic, was noted on a previous EKG 4 months ago. Rate control is optimal, but patient will benefit from long- term anticoagulation therapy. We will resume low-dose Eliquis, which was on hold for his permacath procedure. (3) Coronary artery disease Current Visit: Yes Status: Acute Plan to address problem: Patient reports a history of coronary artery disease with coronary stent placement a year and a half ago when he lived in [place]. He has no chest pain or symptoms of coronary ischemia at this time, we will resume guideline directed medical therapy and risk factor modification. Due to his vague description of the timeline of his coronary intervention, and the absence of his outpatient records, we have elected to continue dual oral antiplatelet therapy until his records are available to properly determine duration of antiplatelet management. (4) Uncontrolled hypertension Current Visit: Yes Status: Acute Plan to address problem: Patient systolic blood pressure is now well controlled with the addition of Procardia XL 60 mg twice daily. Subjective Date of service: 08/29/21 Principal diagnosis: Fluid overload, end-stage renal failure, chronic atrial fibrillation Interval history: Patient is comfortable no acute distress, no new cardiac complaints. No new cardiac events reported. Objective Vital Signs Temp Pulse Resp BP Pulse Ox Pulse Ox 08/29/21 08:04 98 08/29/21 07:48 98.1 F 78 18 128/70 94 08/29/21 04:43 98.7 F 85 20 107/70 99 08/29/21 04:00 79 08/28/21 23:00 18 96 08/28/21 21:01 89 26 H 99 08/28/21 13:24 78 168/92 08/28/21 12:20 97.0 F L 70 20 168/92 97 08/28/21 12:00 86 149/92 08/28/21 11:45 55 L 151/105 08/28/21 11:30 57 L 130/99 08/28/21 11:15 52 L 146/105 08/28/21 11:00 62 16 199/100 96 08/28/21 10:45 88 177/95 08/28/21 10:30 84 169/109 08/28/21 10:15 68 152/109 08/28/21 09:55 98.2 F 81 20 119/94 97 - Physical Examination General: No Apparent Distress HEENT: Positive: PERRL Neck: Positive: neck supple Cardiac: Positive: irregularly irregular Lungs: Positive: Decreased Breath Sounds Neuro: Positive: Grossly Intact Abdomen: Positive: Soft Skin: Positive: Clear Extremities: Present: edema - Labs and Meds Comprehensive Metabolic Panel 08/29/21 Range/Units 05:32 Creatinine 6.1 H (0.8-1.3) mg/dL
[2021-08-29] MEDS ORDERED: SODIUM CHLORIDE 0.9% 100 ML IV PRN (09:57)
--- NOTE | 2021-08-29 13:00 | Progress Note ---
Assessment and Plan Acute on CKD/ESRD - Seen & stable on HD. Pt for d/c today to start Outpt HD at [facility] q TTS, Dr. Avila to follow HTN - F/u on meds CAD/AFib - Stable, back on Eliquis & f/u per Cardiology SOB/Pulm Congestion - Much improved on UF, f/u on outpt HD Subjective Date of service: 08/29/21 Principal diagnosis: Fluid overload, end-stage renal failure, chronic atrial fibrillation Interval history: Pt seen on HD Objective - Vital Signs Vital signs: Vital Signs - 12hr 08/29/21 08/29/21 08/29/21 04:00 04:43 07:48 Temperature 98.7 F 98.1 F Pulse Rate 79 85 78 Respiratory 20 18 Rate Blood Pressure 107/70 128/70 O2 Sat by Pulse 99 94 Oximetry 08/29/21 08/29/21 08:04 09:10 Temperature Pulse Rate 98 H Respiratory Rate Blood Pressure O2 Sat by Pulse 98 Oximetry - General Appearance General appearance: other (Not in distress) EENT: PERRL, hearing intact Neck: no JVD, supple Respiratory: Present: Other (Improved air entry) Cardiology: regular, S1S2 Gastrointestinal: obese, other (Soft) Neurologic: no focal deficit, alert and oriented x3 Psychiatric: mood/affect appropriate - Lab 08/28/21 04:14 08/29/21 05:32 Most recent lab results Calcium 8.5 mg/dL (8.4-10.2) 08/28/21 04:14 Phosphorus 5.00 mg/dL (2.5-4.5) H 08/27/21 04:59 Magnesium 2.20 mg/dL (1.7-2.3) 08/27/21 04:59 Medications & Allergies - Medications Allergies/Adverse Reactions: Allergies lisinopril Allergy (Verified 08/20/21 07:52) Coughing Home Medications: Home Medications Medication Instructions Recorded Confirmed Last Taken Type Amlodipine Besylate [Norvasc] 5 mg PO QDAY 08/20/21 08/20/21 Unknown History AtorvaSTATin [Lipitor] 40 mg PO QHS 08/20/21 08/20/21 Unknown History Doxazosin Mesylate [Cardura] 2 mg PO DAILY 08/20/21 08/20/21 Unknown History Furosemide [Lasix TAB] 80 mg PO QDAY 08/20/21 08/20/21 Unknown History ISOSORBIDE MONOnitrate [Imdur ER] 60 mg PO QDAY 08/20/21 08/20/21 Unknown History Rivaroxaban [Xarelto] 20 mg PO QDAY 08/20/21 08/20/21 Unknown History Sertraline [Zoloft] 50 mg PO QDAY 08/20/21 08/20/21 Unknown History Torsemide [Demadex] 20 mg PO QDAY 08/20/21 08/20/21 Unknown History allopurinoL [Zyloprim] 100 mg PO QDAY 08/20/21 08/20/21 Unknown History carvediloL [Coreg] 25 mg PO QDAY 08/20/21 08/20/21 Unknown History cloNIDine HCL [Clonidine HCl] 0.3 mg PO QDAY 08/20/21 08/20/21 Unknown History glipiZIDE [Glipizide ER] 2.5 mg PO QDAY 08/20/21 08/20/21 Unknown History Active Medications: Generic Name Dose Route Start Last Admin Trade Name Freq PRN Reason Stop Dose Admin Acetaminophen 650 mg 08/19/21 04:39 08/26/21 10:39 Acetaminophen 325 Mg Tab PO 650 mg Q4H PRN Administration Pain MILD(1-3)/Fever >100.5/DE LA PAZ Allopurinol 100 mg 08/20/21 14:00 08/29/21 09:23 Allopurinol 100 Mg Tab PO 100 mg QDAY ISHMAEL Administration Apixaban 2.5 mg 08/26/21 22:00 08/29/21 09:22 Apixaban 2.5 Mg Tab PO 2.5 mg Q12HR ISHMAEL Administration Protocol Aspirin 81 mg 08/20/21 12:00 08/29/21 09:22 Aspirin Ec 81 Mg Tab PO 81 mg QDAY ISHMAEL Administration Atorvastatin Calcium 40 mg 08/20/21 22:00 08/28/21 22:43 Atorvastatin 40 Mg Tab PO 40 mg QHS ISHMAEL Administration Carvedilol 25 mg 08/23/21 10:00 08/28/21 22:43 Carvedilol 25 Mg Tab PO 25 mg BID ISHMAEL Administration Clopidogrel Bisulfate 75 mg 08/20/21 12:00 08/29/21 09:23 Clopidogrel 75 Mg Tab PO 75 mg QDAY ISHMAEL Administration Doxazosin Mesylate 2 mg 08/20/21 14:00 08/28/21 12:57 Doxazosin 1 Mg Tab PO Not Given QDAY ISHMAEL Furosemide 40 mg 08/28/21 20:00 08/29/21 05:40 Furosemide 40 Mg Tab PO 40 mg 0600,1800 ISHMAEL Administration Hydralazine HCl 100 mg 08/20/21 09:00 08/29/21 05:41 Hydralazine 100 Mg Tab PO Not Given Q8HR [facility] Sodium Chloride 100 mls @ 999 mls/hr 08/27/21 11:54 Nacl 0.9% IV KIMBERLY PRN Hypotension Sodium Chloride 100 mls @ 999 mls/hr 08/29/21 09:57 Nacl 0.9% IV KIMBERLY PRN Hypotension Isosorbide Mononitrate 30 mg 08/19/21 16:00 08/29/21 09:23 Isosorbide Mononitrate Er 30 Mg Tab PO 30 mg QDAY ISHMAEL Administration Morphine Sulfate 2 mg 08/19/21 04:39 08/25/21 17:48 Morphine 2 Mg/1 Ml Inj IV 2 mg Q4H PRN Administration Pain, Moderate (4-6) Morphine Sulfate 4 mg 08/19/21 04:39 Morphine 4 Mg/1 Ml Inj IV Q4H PRN Pain , Severe (7-10) Nifedipine 60 mg 08/20/21 12:00 08/28/21 22:44 Nifedipine Xl 60 Mg Tab PO 60 mg Q12HR ISHMAEL Administration Ondansetron HCl 4 mg 08/19/21 04:39 Ondansetron 4 Mg/2 Ml Inj IV Q8H PRN Nausea And Vomiting Ropinirole HCl 0.25 mg 08/23/21 22:00 08/28/21 22:44 Ropinirole 0.25 Mg Tab PO 0.25 mg QHS ISHMAEL Administration Sodium Chloride 10 ml 08/19/21 10:00 08/28/21 22:44 Sodium Chloride 0.9% 10 Ml Flush Syringe IV 10 ml BID ISHMAEL Administration Sodium Chloride 10 ml 08/19/21 04:39 08/21/21 18:39 Sodium Chloride 0.9% 10 Ml Flush Syringe IV 10 ml PRN PRN Administration LINE FLUSH Zolpidem Tartrate 10 mg 08/23/21 15:18 08/24/21 22:09 Zolpidem 5 Mg Tab PO 10 mg QHS PRN Administration Sleep
[2021-08-29] MEDS: DOXAZOSIN 1 MG TAB PO SCH (15:14)
[2021-08-29] MEDS: carvediloL 25 MG TAB PO SCH (15:15)
[2021-08-29] MEDS: NIFEdipine XL 60 MG TAB PO SCH (15:15)
--- NOTE | 2021-08-29 16:32 | Discharge Summary ---
Providers - Providers Date of Admission: 08/19/21 04:31 Attending physician: ROGERS WASHINGTON 08/19/21 04:39 Consult to Physician [CONS] Routine Comment: Consulting Provider: EDDIE RICHARDSON Physician Instructions: Reason For Exam: CHF Exac, AFib. 08/19/21 04:59 Consult to Physician [CONS] Routine Comment: Consulting Provider: RYLIE WEATHERS Physician Instructions: Reason For Exam: Chronic kidney disease 08/21/21 12:17 Physical Therapy Evaluation and Treat [CONS] Routine Comment: Reason For Exam: Debility 08/24/21 11:42 Consult to Interventional Radiology [CONS] Routine Consulting Provider: KEYON DUMONT Reason For Exam: Permcath Place consult to:: Dr. Dumont Notified:: - Comment:: Dr. Dumont is aware of consult per note 08/24/21 @1231 Primary care physician: SKINNY PETER Hospitalization Condition: Stable Hospital course: 60-year-old -[place] male with known history of CHF, chronic kidney disease presenting to the emergency room complaining of progressive swelling of his lower extremities and shortness of breath which has been ongoing for the past 2 weeks. Work-up in the emergency room today EKG shows atrial fibrillation, chest x-ray was unremarkable. Labs reveals elevated BNP of 2023, potassium 3.3. BUN of 47 and creatinine of 4.7 Patient was admitted for CHF exacerbation Nephrology decided to initiate hemodialysis Vascular consulted for right internal jugular tunneled cuffed hemodialysis catheter placement Followed by hemodialysis Assessment --Acute systolic CHF exacerbation EF 40-45% Continue antifailure medications, cardiology following --Atrial fibrillation-possibly chronic; Low-dose Eliquis[resume post hemodialysis catheter placement if okay with vascular] Continue current cardiac medications --CHRISTIANO on Chronic kidney disease, likely progressed to ESRD; s/p hemodialysis catheter placement, new hemodialysis Outpatient HD placement per case management --Hypokalemia; closely monitor electrolytes --Morbid obesity with sleep apnea; 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 CPAP BiPAP upon discharge --Hypertension; uncontrolled Continue current antihypertensives and adjust as needed Follow consultants evaluation and recommendations Possible outpatient HD placement per case management prior to discharge Closely monitor the patient and adjust management as needed Plan of care reviewed with the patient and his nurse as well as the case management Plan: 08/19 Patient was admitted for CHF exacerbation, 2D echo showed EF of 45% Cardiology consulted, continue diuresis, follow cardiology recommendation 08/20 -- Continue diuretics, replete electrolytes as needed -- Renal function slightly improved today, continue to follow BMP -- BP still remains uncontrolled and SBP at 180s -we will continue to adjust medications, will avoid nephrotoxins -- Continue to follow clinically follow nephrology and cardiology recommendation -- Patient placed on anticoagulation with Eliquis -- Continue CPAP at bedtime 08/21: Creatinine continue to trend up, continue to follow. Add ambien I at bedtime for sleep 08/22: Cr cont to trend up, discussed with nephrology. plan to start HD likely from Wednesday 08/23: cont to monitor BMP, likely to start HD from next week 08/24: Plan to initiate hemodialysis, consulted vascular to place PermCath -which is scheduled for tomorrow, n.p.o. after midnight 08/25/2021 right internal jugular tunneled cuffed hemodialysis catheter placement today Patient received hemodialysis 08/26/2021; patient is on dialysis, CM to assist with outpatient chair for dialysis DC planning per case management. 08/27/2021; case management set up outpatient HD chair timings Chair days/time: Tuesday,,Tuesday at 5:30am, treatment outpatient is set for Tuesday at 5:30am,patient will need to arrive to the clinic at 5am to sign paperwork,bring ID,insurance card. SW notified. will continue to follow. PT evaluated the patient recommend home health PT, patient already has CPAP at home Possible discharge home tomorrow if stable Plan of care reviewed with the patient, his nurse and the case management 08/28/2021; patient's first outpatient HD is on September 01, patient will receive hemodialysis tomorrow per nephrology DC planning per case management Disposition: 30 STILL A PATIENT Final Discharge Diagnosis (Prints w/discharge instructions): Acute on chronic systolic congestive heart failure EF 40 to 45%. Chronic atrial fibrillation rate controlled. Acute kidney injury on chronic kidney disease likely progressed to ESRD on hemodialysis. Hypokalemia resolved. Morbid obesity with sleep apnea on CPAP. Hypertension. Morbid obesity BMI 43.1 Time spent for discharge: 40 minutes Core Measure Documentation - Palliative Care Palliative Care/ Comfort Measures: Not Applicable - Core Measures Any of the following diagnoses?: none Exam - Constitutional Vitals: Temp Pulse Resp BP Pulse Ox 98.1 F 98 H 18 128/70 98 08/29/21 07:48 08/29/21 09:10 08/29/21 07:48 08/29/21 07:48 08/29/21 08:04 General appearance: Present: no acute distress, well-nourished - EENT Eyes: Present: PERRL, EOM intact - Neck Neck: Present: supple, normal ROM - Respiratory Respiratory effort: normal Respiratory: bilateral: diminished (The controversial patient is still there), negative: rales, rhonchi, wheezing ( and what happened with MRI) - Cardiovascular Rhythm: regular Heart Sounds: Present: S1 & S2 - Extremities Extremities: no ischemia, No edema - Abdominal General gastrointestinal: Present: soft, non-tender (They want me to transfer NovoLog or stop 4 to 3 hours), non-distended, normal bowel sounds - Integumentary Integumentary: Present: clear, warm (List acute respiratory rotation) - Musculoskeletal Musculoskeletal: strength equal bilaterally - Psychiatric Psychiatric: appropriate mood/affect, cooperative - Neurologic Neurologic: CNII-XII intact, moves all extremities Plan Activity: advance as tolerated Diet: renal Additional Instructions: [facility] dialysis clinic [phone],spoke to Perlita [employer],regarding the above,she informed this service writer that patient has been accepted at their clinic T-TH-Sat. at 5:30am( patient needs to arrive at 5am to sign paperwork),1st treatment outpatient is set for Tuesday. Perlita also stated she will notify [facility] Admissions intake to fax over confirmation dialysis schedule for patient. Follow renal/hemodialysis per schedule TTS. If you have worsening symptoms contact MD or go to the nearest emergency room as needed. Strongly advised to comply with medications, diet, follow-up visits and hemodialysis per schedule. Advised diet modification exercise as tolerated and weight reduction. Continue home oxygen/home CPAP as before Follow up with: SKINNY PETER MD [Primary Care Provider] - 7 Days RYLIE WEATHERS MD [Staff Physician] - 7 Days YVETTE MENDOZA MD [Staff Physician] - 7 Days Prescriptions: hydrALAZINE [Apresoline TAB] 100 mg PO Q8HR #90 tab carvediloL [Coreg] 25 mg PO BID #60 tablet Apixaban [Eliquis] 2.5 mg PO Q12HR #60 tablet Aspirin EC [Halfprin EC] 81 mg PO QDAY #30 tablet ISOSORBIDE MONOnitrate [Imdur ER] 30 mg PO QDAY #30 tablet Furosemide [Lasix TAB] 40 mg PO 0600,1800 #60 tablet AtorvaSTATin [Lipitor] 40 mg PO QHS #30 Clopidogrel [Plavix] 75 mg PO QDAY #30 tablet NIFEdipine XL [Procardia Xl] 60 mg PO Q12HR #60 tablet rOPINIRole [Requip] 0.25 mg PO QHS #30 tablet
[2021-08-29 19:59] VITALS: BP 146/92
== END 2021-08-29 18:35 | disposition home or self-care (01) | DRG 673 ==
LOC: ED 11:12 → 4A 08-19 04:31
PROVIDERS: ADMIT Internal Medicine Geriatric Medicine; ATTEND Internal Medicine
PROC: 5A09557 Assistance with Respiratory Ventilation, Greater than 96 Consecutive Hours, Continuous Positive Airway Pressure (ICD-10-PCS; 2021-08-19)
PROC: 0JH63XZ Insertion of Tunneled Vascular Access Device into Chest Subcutaneous Tissue and Fascia, Percutaneous Approach (ICD-10-PCS; principal; 2021-08-25)
PROC: 02H633Z Insertion of Infusion Device into Right Atrium, Percutaneous Approach (ICD-10-PCS; 2021-08-25)
PROC: B5181ZA Fluoroscopy of Superior Vena Cava using Low Osmolar Contrast, Guidance (ICD-10-PCS; 2021-08-25)
PROC: B548ZZA Ultrasonography of Superior Vena Cava, Guidance (ICD-10-PCS; 2021-08-25)
PROC: 5A1D70Z Performance of Urinary Filtration, Intermittent, Less than 6 Hours Per Day (ICD-10-PCS; 2021-08-25)
PROC: 5A1D70Z Performance of Urinary Filtration, Intermittent, Less than 6 Hours Per Day (ICD-10-PCS; 2021-08-26)
PROC: 5A1D70Z Performance of Urinary Filtration, Intermittent, Less than 6 Hours Per Day (ICD-10-PCS; 2021-08-28)
PROC: 5A1D70Z Performance of Urinary Filtration, Intermittent, Less than 6 Hours Per Day (ICD-10-PCS; 2021-08-29)
DX: N17.0 Acute kidney failure with tubular necrosis (principal); I50.23 Acute on chronic systolic (congestive) heart failure; Z68.41 Body mass index [BMI] 40.0-44.9, adult; I13.2 Hypertensive heart and chronic kidney disease with heart failure and with stage 5 chronic kidney disease, or end stage renal disease; N18.6 End stage renal disease; I48.91 Unspecified atrial fibrillation; E66.01 Morbid (severe) obesity due to excess calories; I25.10 Atherosclerotic heart disease of native coronary artery without angina pectoris; E87.6 Hypokalemia; Z95.5 Presence of coronary angioplasty implant and graft; Z91.14 Patient's other noncompliance with medication regimen
CPT/HCPCS: 36415; 36558; 71045; 71046; 76770; 77001; 80048; 80053; 80074; 80076; 82565; 83735; 83880; 83970; 84100; 84132; 84484; 85007; 85025; 85027; 85610; 85730; 93005; 93306; 94660; G0378; J3490; C1750; C8929; J0360; J0690; J1644; J1940; J2250; J2270; J3010; J7050; U0003

== ENCOUNTER 2021-09-16 16:14 | Observation (INO) | payer OTHER, MEDICARE ==
[2021-09-16 18:41] LABS: Basophils # (Auto) 0.1 K/mm3 (0.0-0.1); Basophils % (Auto) 0.8 % (0.0-1.8); Eosinophils # (Auto) 0.2 K/mm3 (0.0-0.4); Eosinophils % (Auto) 2.2 % (0.0-4.3); Hematocrit 30.4 % (35.5-45.6); Hemoglobin 10.1 gm/dl (11.8-15.2); Lymphocytes # (Auto) 1.2 K/mm3 (1.2-5.4); Lymphocytes % (Auto) 16.6 % (13.4-35.0); Mean Corpuscular HGB Conc 33 % (32-34); Mean Corpuscular Volume 98 fl (84-94); Monocytes # (Auto) 0.9 K/mm3 (0.0-0.8); Monocytes % (Auto) 11.7 % (0.0-7.3); Platelet Count 195 K/mm3 (140-440); Red Cell Distribution Width 14.5 % (13.2-15.2)
[2021-09-16 18:57] LABS: Albumin 3.5 g/dL (3.9-5); Calcium 8.5 mg/dL (8.4-10.2)
[2021-09-17] MEDS ORDERED: ALBUTEROL 2.5 MG/3 ML NEBU IH ONE (04:01)
[2021-09-17] MEDS ORDERED: IPRATROPIUM 0.02% NEBU 2.5 ML IH ONE (04:01)
--- NOTE | 2021-09-17 04:14 | XRay Report ---
XR chest 1V ap INDICATION / CLINICAL INFORMATION: Dyspnea. COMPARISON: 08/25/2021 FINDINGS: SUPPORT DEVICES: Right IJ central venous catheter again noted. HEART /PULMONARY VASCULATURE: Heart is enlarged with congestion of the pulmonary vasculature. LUNGS / PLEURA: Mild diffuse increased interstitial markings. No focal airspace consolidation. No siz able pleural effusion. No pneumothorax. ADDITIONAL FINDINGS: No significant additional findings. IMPRESSION: Findings indicative of CHF/volume overload. Signer Name: Edy Martinez MD Signed: 09/17/2021 4:10 AM Workstation Name: [id number]
--- NOTE | 2021-09-17 04:55 | Emergency Department Report ---
<DEVON TY - Last Filed: 09/17/21 07:28> ED General Adult HPI - General Chief complaint: Weakness Stated complaint: SORE THROAT/NO ENERGY Time Seen by Provider: 09/17/21 03:33 - Related Data Home Medications Medication Instructions Recorded Confirmed Last Taken Doxazosin Mesylate [Cardura] 2 mg PO DAILY 08/20/21 08/20/21 Unknown Furosemide [Lasix TAB] 80 mg PO QDAY 08/20/21 08/20/21 Unknown Sertraline [Zoloft] 50 mg PO QDAY 08/20/21 08/20/21 Unknown Torsemide [Demadex] 20 mg PO QDAY 08/20/21 08/20/21 Unknown allopurinoL [Zyloprim] 100 mg PO QDAY 08/20/21 08/20/21 Unknown glipiZIDE [Glipizide ER] 2.5 mg PO QDAY 08/20/21 08/20/21 Unknown Previous Rx's Medication Instructions Recorded Last Taken Type Apixaban [Eliquis] 2.5 mg PO Q12HR #60 tablet 08/29/21 Unknown Rx Aspirin EC [Halfprin EC] 81 mg PO QDAY #30 tablet 08/29/21 Unknown Rx AtorvaSTATin [Lipitor] 40 mg PO QHS #30 08/29/21 Unknown Rx Clopidogrel [Plavix] 75 mg PO QDAY #30 tablet 08/29/21 Unknown Rx Furosemide [Lasix TAB] 40 mg PO 0600,1800 #60 tablet 08/29/21 Unknown Rx ISOSORBIDE MONOnitrate [Imdur ER] 30 mg PO QDAY #30 tablet 08/29/21 Unknown Rx NIFEdipine XL [Procardia Xl] 60 mg PO Q12HR #60 tablet 08/29/21 Unknown Rx carvediloL [Coreg] 25 mg PO BID #60 tablet 08/29/21 Unknown Rx hydrALAZINE [Apresoline TAB] 100 mg PO Q8HR #90 tab 08/29/21 Unknown Rx rOPINIRole [Requip] 0.25 mg PO QHS #30 tablet 08/29/21 Unknown Rx Apixaban [Eliquis] 5 mg PO Q12HR tablet 09/18/21 Unknown Rx Allergies Allergy/AdvReac Type Severity Reaction Status Date / Time lisinopril Allergy Coughing Verified 08/20/21 07:52 ED Past Medical Hx - Medications Home Medications: Home Medications Medication Instructions Recorded Confirmed Last Taken Type Doxazosin Mesylate [Cardura] 2 mg PO DAILY 08/20/21 08/20/21 Unknown History Furosemide [Lasix TAB] 80 mg PO QDAY 08/20/21 08/20/21 Unknown History Sertraline [Zoloft] 50 mg PO QDAY 08/20/21 08/20/21 Unknown History Torsemide [Demadex] 20 mg PO QDAY 08/20/21 08/20/21 Unknown History allopurinoL [Zyloprim] 100 mg PO QDAY 08/20/21 08/20/21 Unknown History glipiZIDE [Glipizide ER] 2.5 mg PO QDAY 08/20/21 08/20/21 Unknown History Apixaban [Eliquis] 2.5 mg PO Q12HR #60 tablet 08/29/21 Unknown Rx Aspirin EC [Halfprin EC] 81 mg PO QDAY #30 tablet 08/29/21 Unknown Rx AtorvaSTATin [Lipitor] 40 mg PO QHS #30 08/29/21 Unknown Rx Clopidogrel [Plavix] 75 mg PO QDAY #30 tablet 08/29/21 Unknown Rx Furosemide [Lasix TAB] 40 mg PO 0600,1800 #60 tablet 08/29/21 Unknown Rx ISOSORBIDE MONOnitrate [Imdur ER] 30 mg PO QDAY #30 tablet 08/29/21 Unknown Rx NIFEdipine XL [Procardia Xl] 60 mg PO Q12HR #60 tablet 08/29/21 Unknown Rx carvediloL [Coreg] 25 mg PO BID #60 tablet 08/29/21 Unknown Rx hydrALAZINE [Apresoline TAB] 100 mg PO Q8HR #90 tab 08/29/21 Unknown Rx rOPINIRole [Requip] 0.25 mg PO QHS #30 tablet 08/29/21 Unknown Rx Apixaban [Eliquis] 5 mg PO Q12HR tablet 09/18/21 Unknown Rx ED Medical Decision Making - Lab Data Result diagrams: 09/16/21 17:51 09/16/21 18:02 ED Disposition Clinical Impression: ESRD (end stage renal disease) on dialysis Disposition: 09 ADMITTED INPATIENT Is pt being admited?: Yes Does the pt Need Aspirin: No Condition: Fair <HONORIO MEJIAS - Last Filed: 09/18/21 20:39> ED General Adult HPI - General Source: patient Mode of arrival: Wheelchair Limitations: No Limitations - History of Present Illness Initial comments: PT ARRIVING FROM HOME, REPORTS FALL X2 TODAY. -LOC. HAS BEEN OFF [facility] SINCE YESTERDAY MORNING. -: Gradual, days(s) Location: chest Radiation: non-radiation Severity scale (0 -10): 0 ED Review of Systems ROS: Stated complaint: SORE THROAT/NO ENERGY Other details as noted in HPI Constitutional: denies: chills, fever Eyes: denies: eye pain, eye discharge, vision change ENT: denies: ear pain, throat pain Respiratory: denies: cough, shortness of breath, wheezing Cardiovascular: denies: chest pain, palpitations Endocrine: no symptoms reported Gastrointestinal: denies: abdominal pain, nausea, diarrhea Genitourinary: denies: urgency, dysuria Musculoskeletal: denies: back pain, joint swelling, arthralgia Skin: denies: rash, lesions Neurological: denies: headache, weakness, paresthesias Psychiatric: denies: anxiety, depression Hematological/Lymphatic: denies: easy bleeding, easy bruising ED Past Medical Hx - Past Medical History Hx Hypertension: Yes Hx Congestive Heart Failure: Yes Additional medical history: kidney failure - Surgical History Additional Surgical History: cardiac stents - Social History Smoking Status: Never Smoker ED Physical Exam - General Limitations: No Limitations General appearance: alert, in distress - Head Head exam: Present: atraumatic, normocephalic - Eye Eye exam: Present: normal appearance - ENT ENT exam: Present: mucous membranes moist - Neck Neck exam: Present: normal inspection - Respiratory Respiratory exam: Present: normal lung sounds bilaterally, rales. Absent: respiratory distress - Cardiovascular Cardiovascular Exam: Present: normal rhythm, tachycardia. Absent: systolic murmur, diastolic murmur, rubs, gallop - GI/Abdominal GI/Abdominal exam: Present: soft, normal bowel sounds - Rectal Rectal exam: Present: deferred - Extremities Exam Extremities exam: Present: normal inspection - Back Exam Back exam: Present: normal inspection - Neurological Exam Neurological exam: Present: alert, oriented X3 - Psychiatric Psychiatric exam: Present: normal affect, normal mood - Skin Skin exam: Present: warm, dry, intact, normal color. Absent: rash ED Course Vital Signs 09/16/21 09/16/21 09/17/21 17:32 23:02 03:17 Temperature 98.7 F 98.2 F Pulse Rate 86 77 Pulse Rate [ Anterior Bilateral] Respiratory 20 16 Rate Respiratory Rate [Anterior Bilateral] Blood Pressure 146/91 Blood Pressure 139/89 [Right] O2 Sat by Pulse 96 96 98 Oximetry 09/17/21 09/17/21 09/17/21 03:30 03:31 03:45 Temperature 98 F Pulse Rate 114 H 108 H 112 H Pulse Rate [ Anterior Bilateral] Respiratory 31 H 35 H 36 H Rate Respiratory Rate [Anterior Bilateral] Blood Pressure 163/100 163/100 163/100 Blood Pressure 163/100 [Right] O2 Sat by Pulse 97 97 97 Oximetry 09/17/21 09/17/21 09/17/21 04:00 04:15 04:31 Temperature Pulse Rate 120 H 106 H 113 H Pulse Rate [ Anterior Bilateral] Respiratory 32 H 34 H 34 H Rate Respiratory Rate [Anterior Bilateral] Blood Pressure 163/100 163/100 163/100 Blood Pressure [Right] O2 Sat by Pulse 97 98 97 Oximetry 09/17/21 09/17/21 09/17/21 04:38 04:45 05:01 Temperature Pulse Rate 110 H 106 H Pulse Rate [ 100 H Anterior Bilateral] Respiratory 22 33 H Rate Respiratory 20 Rate [Anterior Bilateral] Blood Pressure 169/89 138/89 Blood Pressure [Right] O2 Sat by Pulse 100 100 Oximetry 09/17/21 09/17/21 09/17/21 05:15 05:31 05:45 Temperature Pulse Rate 101 H 117 H 113 H Pulse Rate [ Anterior Bilateral] Respiratory 23 31 H 22 Rate Respiratory Rate [Anterior Bilateral] Blood Pressure 138/89 138/89 138/89 Blood Pressure [Right] O2 Sat by Pulse 97 95 94 Oximetry 09/17/21 09/17/21 09/17/21 06:01 06:15 06:31 Temperature Pulse Rate 110 H 107 H 99 H Pulse Rate [ Anterior Bilateral] Respiratory 33 H 32 H 41 H Rate Respiratory Rate [Anterior Bilateral] Blood Pressure 147/81 147/81 147/81 Blood Pressure [Right] O2 Sat by Pulse 92 92 94 Oximetry 09/17/21 09/17/21 09/17/21 06:45 07:01 07:45 Temperature Pulse Rate 97 H 105 H 107 H Pulse Rate [ Anterior Bilateral] Respiratory 31 H 34 H 28 H Rate Respiratory Rate [Anterior Bilateral] Blood Pressure 147/81 137/89 137/89 Blood Pressure [Right] O2 Sat by Pulse 93 94 93 Oximetry 09/17/21 09/17/21 09/17/21 08:01 09:01 09:04 Temperature 97.9 F Pulse Rate 102 H 119 H Pulse Rate [ Anterior Bilateral] Respiratory 28 H 45 H Rate Respiratory Rate [Anterior Bilateral] Blood Pressure 135/86 152/97 Blood Pressure [Right] O2 Sat by Pulse 92 97 Oximetry 09/17/21 09/17/21 09/17/21 09:11 09:21 09:31 Temperature Pulse Rate 112 H 110 H 106 H Pulse Rate [ Anterior Bilateral] Respiratory 35 H 35 H 38 H Rate Respiratory Rate [Anterior Bilateral] Blood Pressure 152/97 152/97 152/97 Blood Pressure [Right] O2 Sat by Pulse 96 98 96 Oximetry 09/17/21 09/17/21 09/17/21 09:41 09:51 10:01 Temperature Pulse Rate 114 H 109 H 111 H Pulse Rate [ Anterior Bilateral] Respiratory 35 H 35 H 31 H Rate Respiratory Rate [Anterior Bilateral] Blood Pressure 152/97 138/101 138/101 Blood Pressure [Right] O2 Sat by Pulse 96 98 98 Oximetry 09/17/21 10:11 Temperature Pulse Rate 106 H Pulse Rate [ Anterior Bilateral] Respiratory 35 H Rate Respiratory Rate [Anterior Bilateral] Blood Pressure 138/101 Blood Pressure [Right] O2 Sat by Pulse 97 Oximetry ED Medical Decision Making - Lab Data Result diagrams: 09/17/21 23:32 09/18/21 04:15 Critical care attestation.: If time is entered above; I have spent that time in minutes in the direct care of this critically ill patient, excluding procedure time. ED Disposition Is pt being admited?: Yes Does the pt Need Aspirin: No
[2021-09-17 05:11] LABS: Creatine Kinase MB 1.4 ng/mL (0.0-4.0)
[2021-09-17 05:22] LABS: C-Reactive Protein 6.8 mg/dL (0.00-1.30)
[2021-09-17] MEDS ORDERED: METOPROLOL TARTRATE 5 MG/5 ML INJ IV ONE (05:44)
--- NOTE | 2021-09-17 08:38 | History and Physical Report ---
History of Present Illness Date of examination: 09/17/21 Date of admission: 09/17/2021 Chief complaint: Lower energy, sore throat and missed dialysis History of present illness: Patient is a 60-year-old male with history of coronary artery disease, atrial fibrillation, heart failure with reduced ejection fraction, MANOJ and ESRD with recent initiation of HD who presented to the emergency department with complaints of low energy and sore throat x1 day. Due to his malaise, he missed his HD session yesterday. He denies a odynophasia, fever/chills/night sweats, cough, shortness of breath. He does endorse occasional orthopnea. He uses CPAP at night with compliance. He reports taking all medications as prescribed. Other review systems negative. Chest x-ray significant for diffuse interstitial markings suggestive of pulmonary congestion. NTproBNP was elevated at 3324. Nephrology was consulted for HD. He was admitted for CHF exacerbation and missed HD. Medications and Allergies Allergies Allergy/AdvReac Type Severity Reaction Status Date / Time lisinopril Allergy Coughing Verified 08/20/21 07:52 Home Medications Medication Instructions Recorded Confirmed Last Taken Type Doxazosin Mesylate [Cardura] 2 mg PO DAILY 08/20/21 08/20/21 Unknown History Furosemide [Lasix TAB] 80 mg PO QDAY 08/20/21 08/20/21 Unknown History Sertraline [Zoloft] 50 mg PO QDAY 08/20/21 08/20/21 Unknown History Torsemide [Demadex] 20 mg PO QDAY 08/20/21 08/20/21 Unknown History allopurinoL [Zyloprim] 100 mg PO QDAY 08/20/21 08/20/21 Unknown History glipiZIDE [Glipizide ER] 2.5 mg PO QDAY 08/20/21 08/20/21 Unknown History Apixaban [Eliquis] 2.5 mg PO Q12HR #60 tablet 08/29/21 Unknown Rx Aspirin EC [Halfprin EC] 81 mg PO QDAY #30 tablet 08/29/21 Unknown Rx AtorvaSTATin [Lipitor] 40 mg PO QHS #30 08/29/21 Unknown Rx Clopidogrel [Plavix] 75 mg PO QDAY #30 tablet 08/29/21 Unknown Rx Furosemide [Lasix TAB] 40 mg PO 0600,1800 #60 tablet 08/29/21 Unknown Rx ISOSORBIDE MONOnitrate [Imdur ER] 30 mg PO QDAY #30 tablet 08/29/21 Unknown Rx NIFEdipine XL [Procardia Xl] 60 mg PO Q12HR #60 tablet 08/29/21 Unknown Rx carvediloL [Coreg] 25 mg PO BID #60 tablet 08/29/21 Unknown Rx hydrALAZINE [Apresoline TAB] 100 mg PO Q8HR #90 tab 08/29/21 Unknown Rx rOPINIRole [Requip] 0.25 mg PO QHS #30 tablet 08/29/21 Unknown Rx Apixaban [Eliquis] 5 mg PO Q12HR tablet 09/18/21 Unknown Rx Active Meds: Active Medications Acetaminophen (Acetaminophen 325 Mg Tab) 650 mg PO Q4H PRN PRN Reason: Pain MILD(1-3)/Fever >100.5/DE LA PAZ Heparin Sodium (Porcine) (Heparin 5,000 Unit/1 Ml Vial) 5,000 unit SUB-Q Q12HR ISHMAEL Magnesium Hydroxide (Magnesium Hydroxide (Mom) Oral Liqd Udc) 30 ml PO Q4H PRN PRN Reason: Constipation Morphine Sulfate (Morphine 4 Mg/1 Ml Inj) 4 mg IV Q4H PRN PRN Reason: Pain , Severe (7-10) Ondansetron HCl (Ondansetron 4 Mg/2 Ml Inj) 4 mg IV Q8H PRN PRN Reason: Nausea And Vomiting Oxycodone/Acetaminophen (Oxycodone /Acetaminophen 5-325mg Tab) 1 tab PO Q6H PRN PRN Reason: Pain, Moderate (4-6) Sodium Chloride (Sodium Chloride 0.9% 10 Ml Flush Syringe) 10 ml IV BID ISHMAEL Sodium Chloride (Sodium Chloride 0.9% 10 Ml Flush Syringe) 10 ml IV PRN PRN PRN Reason: LINE FLUSH Exam - Physical Exam Narrative exam: GENERAL: Well-developed well-nourished. In no acute distress. HEENT: Normocephalic. Atraumatic. NECK: Supple. CHEST/LUNGS: Right chest permacath. CTAB on room air. HEART/CARDIOVASCULAR: Mild tachycardia. No murmur, rubs or gallops appreciated. ABDOMEN: +BS. NT/ND. SKIN: No rashes noted. NEURO: Decreased sensation and contraction of the fourth and fifth digit of the right hand. Follows all commands. MUSCULOSKELETAL: No joint effusion EXTREMITIES: No cyanosis, clubbing or edema. PSYCH: Cooperative. - Constitutional Vitals: Temp Pulse Resp BP Pulse Ox 98 F 105 H 34 H 137/89 94 09/17/21 03:30 09/17/21 07:01 09/17/21 07:01 09/17/21 07:01 09/17/21 07:01 HEART Score - HEART Score Troponin: WBC 7.5 K/mm3 (4.5-11.0) 09/16/21 17:51 RBC 3.10 M/mm3 (3.65-5.03) L 09/16/21 17:51 Hgb 10.1 gm/dl (11.8-15.2) L 09/16/21 17:51 Hct 30.4 % (35.5-45.6) L 09/16/21 17:51 MCV 98 fl (84-94) H 09/16/21 17:51 MCH 33 pg (28-32) H 09/16/21 17:51 MCHC 33 % (32-34) 09/16/21 17:51 RDW 14.5 % (13.2-15.2) 09/16/21 17:51 Plt Count 195 K/mm3 (140-440) 09/16/21 17:51 Lymph % (Auto) 16.6 % (13.4-35.0) 09/16/21 17:51 Dundy % (Auto) 11.7 % (0.0-7.3) H 09/16/21 17:51 Eos % (Auto) 2.2 % (0.0-4.3) 09/16/21 17:51 Baso % (Auto) 0.8 % (0.0-1.8) 09/16/21 17:51 Lymph # (Auto) 1.2 K/mm3 (1.2-5.4) 09/16/21 17:51 Dundy # (Auto) 0.9 K/mm3 (0.0-0.8) H 09/16/21 17:51 Eos # (Auto) 0.2 K/mm3 (0.0-0.4) 09/16/21 17:51 Baso # (Auto) 0.1 K/mm3 (0.0-0.1) 09/16/21 17:51 Seg Neutrophils % 68.7 % (40.0-70.0) 09/16/21 17:51 Seg Neutrophils # 5.1 K/mm3 (1.8-7.7) 09/16/21 17:51 Sodium 139 mmol/L (137-145) 09/16/21 18:02 Potassium 5.2 mmol/L (3.6-5.0) H 09/16/21 18:02 Chloride 102.6 mmol/L (98-107) 09/16/21 18:02 Carbon Dioxide 16 mmol/L (22-30) L 09/16/21 18:02 Anion Gap 26 mmol/L 09/16/21 18:02 BUN 88 mg/dL (9-20) H 09/16/21 18:02 Creatinine 11.8 mg/dL (0.8-1.3) H 09/16/21 18:02 Estimated GFR 4 ml/min 09/16/21 18:02 BUN/Creatinine Ratio 7 % 09/16/21 18:02 Glucose 100 mg/dL (75-100) 09/16/21 18:02 Calcium 8.5 mg/dL (8.4-10.2) 09/16/21 18:02 Total Bilirubin 0.50 mg/dL (0.1-1.2) 09/16/21 18:02 AST 10 units/L (5-40) 09/16/21 18:02 ALT 8 units/L (7-56) 09/16/21 18:02 Alkaline Phosphatase 72 units/L (35-129) 09/16/21 18:02 Total Creatine Kinase 135 units/L (55-170) 09/17/21 04:20 CK-MB (CK-2) 1.4 ng/mL (0.0-4.0) 09/17/21 04:20 CK-MB (CK-2) Rel Index 1.0 (0-4) 09/17/21 04:20 Troponin T 0.027 ng/mL (0.00-0.029) 09/17/21 04:20 C-Reactive Protein 6.80 mg/dL (0.00-1.30) H 09/17/21 04:20 NT-Pro-B Natriuret Pep 3324 pg/mL (0-900) H 09/17/21 04:20 Total Protein 7.6 g/dL (6.3-8.2) 09/16/21 18:02 Albumin 3.5 g/dL (3.9-5) L 09/16/21 18:02 Albumin/Globulin Ratio 0.9 % 09/16/21 18:02 Results - Labs CBC & Chem 7: 09/17/21 23:32 09/18/21 04:15 Labs: Laboratory Last Values WBC 7.5 K/mm3 (4.5-11.0) 09/16/21 17:51 RBC 3.10 M/mm3 (3.65-5.03) L 09/16/21 17:51 Hgb 10.1 gm/dl (11.8-15.2) L 09/16/21 17:51 Hct 30.4 % (35.5-45.6) L 09/16/21 17:51 MCV 98 fl (84-94) H 09/16/21 17:51 MCH 33 pg (28-32) H 09/16/21 17:51 MCHC 33 % (32-34) 09/16/21 17:51 RDW 14.5 % (13.2-15.2) 09/16/21 17:51 Plt Count 195 K/mm3 (140-440) 09/16/21 17:51 Lymph % (Auto) 16.6 % (13.4-35.0) 09/16/21 17:51 Dundy % (Auto) 11.7 % (0.0-7.3) H 09/16/21 17:51 Eos % (Auto) 2.2 % (0.0-4.3) 09/16/21 17:51 Baso % (Auto) 0.8 % (0.0-1.8) 09/16/21 17:51 Lymph # (Auto) 1.2 K/mm3 (1.2-5.4) 09/16/21 17:51 Dundy # (Auto) 0.9 K/mm3 (0.0-0.8) H 09/16/21 17:51 Eos # (Auto) 0.2 K/mm3 (0.0-0.4) 09/16/21 17:51 Baso # (Auto) 0.1 K/mm3 (0.0-0.1) 09/16/21 17:51 Seg Neutrophils % 68.7 % (40.0-70.0) 09/16/21 17:51 Seg Neutrophils # 5.1 K/mm3 (1.8-7.7) 09/16/21 17:51 Sodium 139 mmol/L (137-145) 09/16/21 18:02 Potassium 5.2 mmol/L (3.6-5.0) H 09/16/21 18:02 Chloride 102.6 mmol/L (98-107) 09/16/21 18:02 Carbon Dioxide 16 mmol/L (22-30) L 09/16/21 18:02 Anion Gap 26 mmol/L 09/16/21 18:02 BUN 88 mg/dL (9-20) H 09/16/21 18:02 Creatinine 11.8 mg/dL (0.8-1.3) H 09/16/21 18:02 Estimated GFR 4 ml/min 09/16/21 18:02 BUN/Creatinine Ratio 7 % 09/16/21 18:02 Glucose 100 mg/dL (75-100) 09/16/21 18:02 Calcium 8.5 mg/dL (8.4-10.2) 09/16/21 18:02 Total Bilirubin 0.50 mg/dL (0.1-1.2) 09/16/21 18:02 AST 10 units/L (5-40) 09/16/21 18:02 ALT 8 units/L (7-56) 09/16/21 18:02 Alkaline Phosphatase 72 units/L (35-129) 09/16/21 18:02 Total Creatine Kinase 135 units/L (55-170) 09/17/21 04:20 CK-MB (CK-2) 1.4 ng/mL (0.0-4.0) 09/17/21 04:20 CK-MB (CK-2) Rel Index 1.0 (0-4) 09/17/21 04:20 Troponin T 0.027 ng/mL (0.00-0.029) 09/17/21 04:20 C-Reactive Protein 6.80 mg/dL (0.00-1.30) H 09/17/21 04:20 NT-Pro-B Natriuret Pep 3324 pg/mL (0-900) H 09/17/21 04:20 Total Protein 7.6 g/dL (6.3-8.2) 09/16/21 18:02 Albumin 3.5 g/dL (3.9-5) L 09/16/21 18:02 Albumin/Globulin Ratio 0.9 % 09/16/21 18:02 Assessment and Plan Assessment and plan: #Acute on chronic systolic heart failure -TTE 08/2021: LVEF 45% -NT proBNP 3324; CXR reviewed and shows diffuse interstitial markings again with pulmonary congestion -Continue GDMT: coreg, imdur -ACEi/ARB not started due to ESRD and allergy -We will give 1 dose of Lasix to the patient still making urine; volume control via dialysis #ESRD requiring HD -Outpatient schedule TTS; last session this past Tuesday -Access: Right chest permacath -Nephrology consulted, assistance appreciated #Sore throat -Rapid strep ordered #Chronic atrial fibrillation -Resume Eliquis and Coreg #Coronary artery disease -Continue aspirin + statin #Hypertension -continue coreg #Hyperkalemia -Potassium 5.2 -Will be addressed with dialysis #Obstructive sleep apnea -Patient reports compliance with CPAP at home -CPAP ordered nightly #Obesity - Counseled patient on the importance of weight loss, incorporating exercise, and dietary changes (lean meats, fresh fruits and vegetables, and water intake). Patient expresses understanding. - Time: +15 min #Advanced care planning -Disease education conducted, care plan discussed, diagnoses discussed, prognosis discussed, and patient acknowledges understanding with care plan -Time: +30 min Advance Directives: No VTE prophylaxis?: Not ordered Reason for no VTE Prophylaxis: Medical contraindication Plan of care discussed with patient/family: Yes
[2021-09-17] MEDS ORDERED: oxyCODONE /ACETAMINOPHEN 5-325MG TAB PO PRN (09:00)
[2021-09-17] MEDS ORDERED: ACETAMINOPHEN 325 MG TAB PO PRN (09:00)
[2021-09-17] MEDS ORDERED: MORPHINE 4 MG/1 ML INJ IV PRN (09:00)
[2021-09-17] MEDS ORDERED: MAGNESIUM HYDROXIDE (MOM) ORAL LIQD UDC PO PRN (09:00)
[2021-09-17] MEDS ORDERED: ONDANSETRON 4 MG/2 ML INJ IV PRN (09:00)
--- NOTE | 2021-09-17 09:52 | Consultation ---
History of Present Illness - Reason for Consult Consult date: 09/17/21 end stage renal disease - History of Present Illness The patient is a 60 Yo AAM with history notable for Morbid Obesity, HTN, CAD, CHF, ESRD on HD(TTS) and Medical non-compliance who presented to [facility] ED 09/17/21 with complaint of generalized weakness for the past 1-2 days. Patient is a poor historian. Patient reportedly fell twice yesterday. Patient denies any chest pain, sob, N, V, D, abd pain, fever, chills, headache, dizziness, diaphoresis, dsyuria or hematuria. Chest X-ray indicative of CHF. Labs notable for BUN 88, Creatinine 11.8, K 5.2 and bicarb 16. Patient was admitted for further evaluation. Nephrology consulted for ESRD management. Past History Past Medical History: other (See hPI.) Medications and Allergies Allergies Allergy/AdvReac Type Severity Reaction Status Date / Time lisinopril Allergy Coughing Verified 08/20/21 07:52 Home Medications Medication Instructions Recorded Confirmed Last Taken Type Doxazosin Mesylate [Cardura] 2 mg PO DAILY 08/20/21 08/20/21 Unknown History Furosemide [Lasix TAB] 80 mg PO QDAY 08/20/21 08/20/21 Unknown History Sertraline [Zoloft] 50 mg PO QDAY 08/20/21 08/20/21 Unknown History Torsemide [Demadex] 20 mg PO QDAY 08/20/21 08/20/21 Unknown History allopurinoL [Zyloprim] 100 mg PO QDAY 08/20/21 08/20/21 Unknown History glipiZIDE [Glipizide ER] 2.5 mg PO QDAY 08/20/21 08/20/21 Unknown History Apixaban [Eliquis] 2.5 mg PO Q12HR #60 tablet 08/29/21 Unknown Rx Aspirin EC [Halfprin EC] 81 mg PO QDAY #30 tablet 08/29/21 Unknown Rx AtorvaSTATin [Lipitor] 40 mg PO QHS #30 08/29/21 Unknown Rx Clopidogrel [Plavix] 75 mg PO QDAY #30 tablet 08/29/21 Unknown Rx Furosemide [Lasix TAB] 40 mg PO 0600,1800 #60 tablet 08/29/21 Unknown Rx ISOSORBIDE MONOnitrate [Imdur ER] 30 mg PO QDAY #30 tablet 08/29/21 Unknown Rx NIFEdipine XL [Procardia Xl] 60 mg PO Q12HR #60 tablet 08/29/21 Unknown Rx carvediloL [Coreg] 25 mg PO BID #60 tablet 08/29/21 Unknown Rx hydrALAZINE [Apresoline TAB] 100 mg PO Q8HR #90 tab 08/29/21 Unknown Rx rOPINIRole [Requip] 0.25 mg PO QHS #30 tablet 08/29/21 Unknown Rx Active Meds: Active Medications Acetaminophen (Acetaminophen 325 Mg Tab) 650 mg PO Q4H PRN PRN Reason: Pain MILD(1-3)/Fever >100.5/DE LA PAZ Heparin Sodium (Porcine) (Heparin 5,000 Unit/1 Ml Vial) 5,000 unit SUB-Q Q12HR ISHMAEL Magnesium Hydroxide (Magnesium Hydroxide (Mom) Oral Liqd Udc) 30 ml PO Q4H PRN PRN Reason: Constipation Morphine Sulfate (Morphine 4 Mg/1 Ml Inj) 4 mg IV Q4H PRN PRN Reason: Pain , Severe (7-10) Ondansetron HCl (Ondansetron 4 Mg/2 Ml Inj) 4 mg IV Q8H PRN PRN Reason: Nausea And Vomiting Oxycodone/Acetaminophen (Oxycodone /Acetaminophen 5-325mg Tab) 1 tab PO Q6H PRN PRN Reason: Pain, Moderate (4-6) Sodium Chloride (Sodium Chloride 0.9% 10 Ml Flush Syringe) 10 ml IV BID ISHMAEL Sodium Chloride (Sodium Chloride 0.9% 10 Ml Flush Syringe) 10 ml IV PRN PRN PRN Reason: LINE FLUSH Review of Systems All systems: negative Exam - Vital Signs Vital signs: Vital Signs Temp Pulse Resp BP Pulse Ox 98.7 F 86 20 139/89 96 09/16/21 17:32 09/16/21 17:32 09/16/21 17:32 09/16/21 17:32 09/16/21 17:32 Results - Lab Results 09/16/21 17:51 09/16/21 18:02 Most recent lab results Calcium 8.5 mg/dL (8.4-10.2) 09/16/21 18:02 Assessment and Plan 1. End Stage Renal Disease: Patient is a on maintenance hemodialysis (TTS) at [facility]. H/o noncompliance with HD, diet and medications. Meds dosage based on GFR. Hemodialysis: today. 2. FEN: Hyperkalemia, HD today, monitor. Volume overload, UF with HD, monitor. Anion-gap metabolic acidosis, 2/2 missed HD, HD today, monitor. Counseled to limit salt and fluid intake. Monitor lytes. 3. HFrEF: Echo, EF 45%. Volume control with HD. Monitor. 4. A.fib: Monitor. 5. H/o CAD. 6. Hypertension, uncontrolled: Adjust meds as needed. Volume control with HD 7. H/o Fall: Fall precautions. 8. Macrocytic Anemia, POA: Epogen with HD as needed. 9. Medical non-compliance: Counseled. 10. Morbid obesity. Subjective: Patient was seen and examined at the bedside. Examination: General appearance: well-developed, well-nourished, appears stated age, obese, no distress HEENT: ATNC, CONG Neck: trachea midline Respiratory: clear to auscultation, diminished bibasilar Heart: S1S2, appears irregular, no murmur Gastrointestinal: normoactive bowel sounds, NT Integumentary: LE stasis changes noted Neurologic: AO, able to moving extremities Ext: 1+ LE edema noted Hemodialysis access: R IJ tunnel catheter
[2021-09-17] MEDS ORDERED: HEPARIN 5,000 UNIT/1 ML VIAL SUB-Q SCH (10:00)
[2021-09-17] MEDS ORDERED: SODIUM CHLORIDE 0.9% 100 ML IV PRN (11:00)
[2021-09-17] MEDS ORDERED: HEPARIN 10,000 UNITS/10 ML VIAL IV PRN (11:00)
[2021-09-17 11:53] LABS: Hepatitis B Surface Antigen Non-Reactive (Negative); Hepatitis C Virus Antibody Non-Reactive (NonReactive)
[2021-09-17] MEDS: ASPIRIN EC 81 MG TAB PO SCH (15:47)
[2021-09-17] MEDS: hydrALAZINE 100 MG TAB PO SCH ×2 (15:47→21:29)
[2021-09-17] MEDS: SERTRALINE 50 MG TAB PO SCH (15:47)
[2021-09-17] MEDS: CLOPIDOGREL 75 MG TAB PO SCH (15:47)
[2021-09-17] MEDS ORDERED: FUROSEMIDE 40 MG/4 ML INJ IV SCH (18:00)
[2021-09-17] MEDS ORDERED: MELATONIN 5 MG TAB PO PRN (20:27)
[2021-09-17] MEDS: APIXABAN 5 MG TAB PO SCH (21:28)
[2021-09-17] MEDS: carvediloL 25 MG TAB PO SCH (21:29)
[2021-09-17] MEDS ORDERED: NON-FORMULARY EACH (Apixaban 2.5 MG Tablet) PO SCH (22:00)
[2021-09-18 00:17] LABS: Hematocrit 32.3 % (35.5-45.6); Hemoglobin 10.6 gm/dl (11.8-15.2); Mean Corpuscular HGB Conc 33 % (32-34); Mean Corpuscular Volume 98 fl (84-94); Platelet Count 218 K/mm3 (140-440); Red Cell Distribution Width 14.1 % (13.2-15.2)
[2021-09-18 00:27] LABS: INR 1.19 (0.87-1.13)
[2021-09-18 00:28] LABS: Partial Thromboplastin Time 33.6 Sec. (24.2-36.6)
[2021-09-18 05:13] LABS: Calcium 8.2 mg/dL (8.4-10.2)
[2021-09-18] MEDS: rOPINIRole 0.25 MG TAB PO SCH ×2 (06:23→22:13)
[2021-09-18] MEDS: hydrALAZINE 100 MG TAB PO SCH ×3 (06:48→22:10)
--- NOTE | 2021-09-18 09:07 | Discharge Summary ---
Providers - Providers Date of Admission: 09/17/21 08:32 Date of discharge: 09/18/21 Attending physician: LUZ MARIA MEZA 09/17/21 08:28 Consult to Physician [CONS] Routine Comment: Consulting Provider: JARRELL ALAS Physician Instructions: Reason For Exam: missed dialysis Primary care physician: APPLIANCE SERVICE TECHNICIAN Hospitalization Reason for admission: missed HD Condition: Stable Hospital course: Patient is a 60-year-old male with history of coronary artery disease, atrial fibrillation, heart failure with reduced ejection fraction, MANOJ and ESRD with recent initiation of HD who presented to the emergency department with complaints of low energy. The patient reportedly missed 2 hemodialysis sessions and presented through the emergency department for hemodialysis. The patient was admitted with diagnosis of acute hypoxic respiratory failure, acute on chronic systolic heart failure, ESRD requiring HD, chronic atrial fibrillation, coronary artery disease, hypertension, hyperkalemia, obstructive sleep apnea and obesity. The diagnosis of acute on chronic systolic heart failure secondary to volume overload from missed hemodialysis. The patient initially required BiPAP which was quickly discontinued after hemodialysis the patient underwent appropriate hemodialysis. Patient was seen by nephrology in consultation and felt that the patient could discharge home today after receiving hemodialysis yesterday. The patient is back to baseline respiratory status. The patient is felt to have received maximal hospital benefit and will be discharged home. Dedicated discharge time 32 minutes. Disposition: 30 STILL A PATIENT Final Discharge Diagnosis (Prints w/discharge instructions): Acute hypoxic respiratory failure, acute on chronic systolic heart failure, ESRD requiring HD, chronic atrial fibrillation, coronary artery disease, hypertension, h yperkalemia, obstructive sleep apnea and obesity. Core Measure Documentation - Palliative Care Palliative Care/ Comfort Measures: Not Applicable - Core Measures Any of the following diagnoses?: none Exam - Constitutional Vitals: Temp Pulse Resp BP Pulse Ox 98.5 F 59 L 17 103/85 98 09/17/21 21:24 09/18/21 06:49 09/18/21 06:49 09/18/21 06:49 09/18/21 08:41 General appearance: Present: no acute distress, well-nourished - EENT Eyes: Present: PERRL ENT: hearing intact, clear oral mucosa - Neck Neck: Present: supple, normal ROM - Respiratory Respiratory effort: normal Respiratory: bilateral: CTA - Cardiovascular Heart Sounds: Present: S1 & S2. Absent: rub, click - Extremities Extremities: pulses symmetrical, No edema Peripheral Pulses: within normal limits - Abdominal General gastrointestinal: Present: soft, non-tender, non-distended, normal bowel sounds Male genitourinary: Present: normal - Integumentary Integumentary: Present: clear, warm, dry - Musculoskeletal Musculoskeletal: gait normal, strength equal bilaterally - Psychiatric Psychiatric: appropriate mood/affect, intact judgment & insight - Neurologic Neurologic: CNII-XII intact, moves all extremities Plan Activity: advance as tolerated Weight Bearing Status: Weight Bear as Tolerated Diet: renal Follow up with: PRIMARY CAREMD [Primary Care Provider] - 3-5 Days RYLIE WEATHERS MD [Staff Physician] - 7 Days
--- NOTE | 2021-09-18 10:01 | Progress Note ---
Assessment and Plan 1. End Stage Renal Disease: Patient is a on maintenance hemodialysis (TTS) at [facility]. H/o noncompliance with HD, diet and medications. Meds dosage based on GFR. Hemodialysis: 09/18. 2. FEN: Hyperkalemia, improved, monitor. Volume overload, UF with HD, monitor. Anion-gap metabolic acidosis, 2/2 missed HD, improved with HD, monitor. Counseled to limit salt and fluid intake. Monitor lytes. 3. HFrEF: Echo, EF 45%. Volume control with HD. Monitor. 4. A.fib: Monitor. 5. H/o CAD. 6. Hypertension, uncontrolled: Adjust meds as needed. Volume control with HD 7. H/o Fall: Fall precautions. 8. Macrocytic Anemia, POA: Epogen with HD as needed. 9. Medical non-compliance: Counseled. 10. Morbid obesity. Subjective: Patient was seen and examined at the bedside. Doing ok. Examination: General appearance: well-developed, well-nourished, appears stated age, obese, no distress HEENT: ATNC, CONG Neck: trachea midline Respiratory: clear to auscultation, diminished bibasilar Heart: S1S2, appears irregular, no murmur Gastrointestinal: normoactive bowel sounds, NT Integumentary: LE stasis changes noted Neurologic: AO, able to moving extremities Ext: slight LE edema noted Hemodialysis access: R IJ tunnel catheter Subjective Date of service: 09/18/21 Objective - Vital Signs Vital signs: Vital Signs - 12hr 09/17/21 09/18/21 09/18/21 22:10 03:51 06:49 Pulse Rate 90 59 L Respiratory 20 17 Rate Blood Pressure 103/85 [Right] O2 Sat by Pulse 97 98 95 Oximetry 09/18/21 08:41 Pulse Rate Respiratory Rate Blood Pressure [Right] O2 Sat by Pulse 98 Oximetry - Lab 09/17/21 23:32 09/18/21 04:15 Most recent lab results Calcium 8.2 mg/dL (8.4-10.2) L 09/18/21 04:15 Medications & Allergies - Medications Allergies/Adverse Reactions: Allergies lisinopril Allergy (Verified 08/20/21 07:52) Coughing Home Medications: Home Medications Medication Instructions Recorded Confirmed Last Taken Type Doxazosin Mesylate [Cardura] 2 mg PO DAILY 08/20/21 08/20/21 Unknown History Furosemide [Lasix TAB] 80 mg PO QDAY 08/20/21 08/20/21 Unknown History Sertraline [Zoloft] 50 mg PO QDAY 08/20/21 08/20/21 Unknown History Torsemide [Demadex] 20 mg PO QDAY 08/20/21 08/20/21 Unknown History allopurinoL [Zyloprim] 100 mg PO QDAY 08/20/21 08/20/21 Unknown History glipiZIDE [Glipizide ER] 2.5 mg PO QDAY 08/20/21 08/20/21 Unknown History Apixaban [Eliquis] 2.5 mg PO Q12HR #60 tablet 08/29/21 Unknown Rx Aspirin EC [Halfprin EC] 81 mg PO QDAY #30 tablet 08/29/21 Unknown Rx AtorvaSTATin [Lipitor] 40 mg PO QHS #30 08/29/21 Unknown Rx Clopidogrel [Plavix] 75 mg PO QDAY #30 tablet 08/29/21 Unknown Rx Furosemide [Lasix TAB] 40 mg PO 0600,1800 #60 tablet 08/29/21 Unknown Rx ISOSORBIDE MONOnitrate [Imdur ER] 30 mg PO QDAY #30 tablet 08/29/21 Unknown Rx NIFEdipine XL [Procardia Xl] 60 mg PO Q12HR #60 tablet 08/29/21 Unknown Rx carvediloL [Coreg] 25 mg PO BID #60 tablet 08/29/21 Unknown Rx hydrALAZINE [Apresoline TAB] 100 mg PO Q8HR #90 tab 08/29/21 Unknown Rx rOPINIRole [Requip] 0.25 mg PO QHS #30 tablet 08/29/21 Unknown Rx Apixaban [Eliquis] 5 mg PO Q12HR tablet 09/18/21 Unknown Rx Active Medications: Generic Name Dose Route Start Last Admin Trade Name Freq PRN Reason Stop Dose Admin Acetaminophen 650 mg 09/17/21 09:00 Acetaminophen 325 Mg Tab PO Q4H PRN Pain MILD(1-3)/Fever >100.5/DE LA PAZ Apixaban 5 mg 09/17/21 22:00 09/17/21 21:28 Apixaban 5 Mg Tab PO 5 mg Q12HR ISHMAEL Administration Protocol Aspirin 81 mg 09/17/21 14:00 09/17/21 15:47 Aspirin Ec 81 Mg Tab PO 81 mg QDAY [facility] Administration Atorvastatin Calcium 40 mg 09/17/21 22:00 09/17/21 21:29 Atorvastatin 40 Mg Tab PO 40 mg QHS [facility] Administration Carvedilol 25 mg 09/17/21 22:00 09/17/21 21:29 Carvedilol 25 Mg Tab PO 25 mg BID ISHMAEL Administration Clopidogrel Bisulfate 75 mg 09/17/21 14:00 09/17/21 15:47 Clopidogrel 75 Mg Tab PO 75 mg QDAY ISHMAEL Administration Heparin Sodium (Porcine) 3,000 unit 09/17/21 11:00 Heparin 10,000 Units/10 Ml Vial IV KIMBERLY PRN hemodialysis Hydralazine HCl 100 mg 09/17/21 14:00 09/18/21 06:48 Hydralazine 100 Mg Tab PO Not Given Q8HR [facility] Sodium Chloride 100 mls @ 999 mls/hr 09/17/21 11:00 Nacl 0.9% IV KIMBERLY PRN Hypotension Isosorbide Mononitrate 30 mg 09/17/21 14:00 09/17/21 15:47 Isosorbide Mononitrate Er 30 Mg Tab PO 30 mg QDAY [facility] Administration Magnesium Hydroxide 30 ml 09/17/21 09:00 Magnesium Hydroxide (Mom) Oral Liqd Udc PO Q4H PRN Constipation Melatonin 5 mg 09/17/21 20:27 09/17/21 21:28 Melatonin 5 Mg Tab PO 5 mg QHS PRN Administration Sleep Morphine Sulfate 4 mg 09/17/21 09:00 Morphine 4 Mg/1 Ml Inj IV Q4H PRN Pain , Severe (7-10) Ondansetron HCl 4 mg 09/17/21 09:00 Ondansetron 4 Mg/2 Ml Inj IV Q8H PRN Nausea And Vomiting Oxycodone/Acetaminophen 1 tab 09/17/21 09:00 Oxycodone /Acetaminophen 5-325mg Tab PO Q6H PRN Pain, Moderate (4-6) Ropinirole HCl 0.25 mg 09/17/21 22:00 09/18/21 06:23 Ropinirole 0.25 Mg Tab PO Not Given QHS [facility] Sertraline HCl 50 mg 09/17/21 14:00 09/17/21 15:47 Sertraline 50 Mg Tab PO 50 mg QDAY ISHMAEL Administration Sodium Chloride 10 ml 09/17/21 10:00 09/17/21 21:30 Sodium Chloride 0.9% 10 Ml Flush Syringe IV 10 ml BID ISHMAEL Administration Sodium Chloride 10 ml 09/17/21 08:32 Sodium Chloride 0.9% 10 Ml Flush Syringe IV PRN PRN LINE FLUSH
[2021-09-18] MEDS: CLOPIDOGREL 75 MG TAB PO SCH (11:40)
[2021-09-18] MEDS: SERTRALINE 50 MG TAB PO SCH (11:40)
[2021-09-18] MEDS: carvediloL 25 MG TAB PO SCH ×2 (11:40→22:10)
[2021-09-18] MEDS: ASPIRIN EC 81 MG TAB PO SCH (11:40)
[2021-09-18] MEDS: APIXABAN 5 MG TAB PO SCH ×2 (11:40→22:10)
--- NOTE | 2021-09-18 17:42 | Electrocardiograph Report ---
[facility] Test Date: 2021-09-17 Test Time: 05:41:24 Pat Name: LAURA SOTO Department: Room: A390 1 Gender: M Cell Reliner: FIDEL : 1960 Requested By: HONORIO MEJIAS Order Number: [id number] Reading MD: Philipp Street Measurements Intervals [place] Rate: 108 P: [place]: QRS: 1 QRSD: 98 T: 134 QT: 360 QTc: 482 Interpretive Statements Atrial fibrillation Ventricular premature complex Nonspecific T abnormalities, lateral leads Compared to ECG 09/17/2021 03:48:19 Ventricular premature complex(es) now present Electronically Signed On 09-18-2021 17:42:[address]
--- NOTE | 2021-09-18 17:42 | Electrocardiograph Report ---
[facility] Test Date: 2021-09-17 Test Time: 03:48:19 Pat Name: LAURA SOTO Department: Room: A390 1 Gender: M Boiler Tester: FIDEL : 1960 Requested By: HONORIO MEJIAS Order Number: [id number] Reading MD: Philipp Street Measurements Intervals [place] Rate: 118 P: [place]: QRS: 4 QRSD: 99 T: 117 QT: 370 QTc: 520 Interpretive Statements Atrial fibrillation Nonspecific T abnormalities, lateral leads Prolonged QT interval Compared to ECG 08/19/2021 08:01:41 PVCs no longer evident Electronically Signed On 09-18-2021 17:42:[address]
[2021-09-18 22:09] VITALS: BP 131/74
== END 2021-09-19 | disposition still patient (30) ==
LOC: ED 16:14 → 3A 09-17 08:32
PROVIDERS: ADMIT Student in an Organized Health Care Education/Training Program; ATTEND Hospitalist
DX: I13.2 Hypertensive heart and chronic kidney disease with heart failure and with stage 5 chronic kidney disease, or end stage renal disease (principal); I50.23 Acute on chronic systolic (congestive) heart failure; N18.6 End stage renal disease; I48.91 Unspecified atrial fibrillation; I25.10 Atherosclerotic heart disease of native coronary artery without angina pectoris; J02.9 Acute pharyngitis, unspecified; E87.5 Hyperkalemia; G47.33 Obstructive sleep apnea (adult) (pediatric); D63.1 Anemia in chronic kidney disease; E66.9 Obesity, unspecified; Z99.2 Dependence on renal dialysis; Z79.82 Long term (current) use of aspirin; Z68.41 Body mass index [BMI] 40.0-44.9, adult; Z95.1 Presence of aortocoronary bypass graft; Z91.19 Patient's noncompliance with other medical treatment and regimen
CPT/HCPCS: 36415; 71045; 80048; 80053; 80074; 82550; 82553; 82565; 83880; 84484; 85025; 85027; 85610; 85730; 86140; 93005; 94644; 94660; 96374; 96375; 99285; G0257; G0378; J1940; J3490

== ENCOUNTER 2021-10-01 09:58 | Emergency (ER) | payer OTHER, MEDICARE ==
[2021-10-01 10:38] VITALS: BP 141/80
--- NOTE | 2021-10-01 10:39 | Emergency Department Report ---
Blank Doc - Documentation Documentation: 61-year-old male that presents with shortness of breath and dizziness and was sent by dialysis treatment center for missing 4 dialysis treatments. 1- This is a initial triage assessment/medical screening only. Full assessment and work-up will be completed once the patient is in proper hospital gown, ED bed and in a private room setting. This initial assessment/diagnostic orders/clinical plan/ treatment(s) is/are subject to change based on pt's health status, clinical progression and re-assessment by fellow clinical providers in the ED. Further treatment and workup at subsequent clinical providers discretion. Patient/guardians urged not to elope from ED as their condition may be serious if not clinically assessed and managed. 2-cardiac workup The patient was evaluated in the emergency department for symptoms described in the history of present illness. He/she was evaluated in the context of the global COVID-19 pandemic, which necessitated consideration that the patient might be at risk for infection with the virus that causes COVID-19. Institutional protocols and algorithms that pertain to the evaluation of patients at risk for COVID-19 are in a state of rapid change based on information released by regulatory bodies including the CDC and federal and state organizations. These policies and algorithms were followed during the patient's care in the emergency department. Please note that these policies, procedures and recommendations changed on a rapid basis.
[2021-10-01 12:20] LABS: Basophils # (Auto) 0.1 K/mm3 (0.0-0.1); Basophils % (Auto) 0.9 % (0.0-1.8); Eosinophils # (Auto) 0.1 K/mm3 (0.0-0.4); Eosinophils % (Auto) 1.8 % (0.0-4.3); Hematocrit 29.6 % (35.5-45.6); Hemoglobin 9.9 gm/dl (11.8-15.2); Lymphocytes # (Auto) 1.3 K/mm3 (1.2-5.4); Lymphocytes % (Auto) 16.9 % (13.4-35.0); Mean Corpuscular HGB Conc 33 % (32-34); Mean Corpuscular Volume 98 fl (84-94); Monocytes # (Auto) 0.7 K/mm3 (0.0-0.8); Platelet Count 305 K/mm3 (140-440); Red Blood Count 3.01 M/mm3 (3.65-5.03); Red Cell Distribution Width 14.7 % (13.2-15.2)
--- NOTE | 2021-10-01 12:20 | XRay Report ---
XR chest routine 2V INDICATION / CLINICAL INFORMATION: Chest Pain COMPARISON: September 17, 2021. FINDINGS: SUPPORT DEVICES: Right internal jugular CVC catheter terminates in the cavoatrial junction. HEART / MEDIASTINUM: No significant abnormality. LUNGS / PLEURA: Lungs are clear. Costophrenic sulci are sharp. No pneumothorax. ADDITIONAL FINDINGS: No significant additional findings. IMPRESSION: 1. No acute findings. Signer Name: Larry Mcgowan MD Signed: 10/01/2021 12:14 PM Workstation Name: [id number]
[2021-10-01 12:22] LABS: Albumin 4.1 g/dL (3.9-5); Calcium 8.8 mg/dL (8.4-10.2)
[2021-10-01 12:23] LABS: INR 1.13 (0.87-1.13)
[2021-10-01 12:24] LABS: Partial Thromboplastin Time 31.7 Sec. (24.2-36.6)
--- NOTE | 2021-10-01 16:41 | Emergency Department Report ---
ED General Adult HPI - General Chief complaint: Dizziness Stated complaint: MISSED DIALYSIS FOR 4 DAYS Time Seen by Provider: 10/01/21 10:36 Source: patient Mode of arrival: Ambulatory Limitations: No Limitations - History of Present Illness Initial comments: Patient is a 61-year-old male brought in from [facility] for evaluation of fatigue. History of chronic kidney disease and is on dialysis Tuesday and Tuesday. States he missed his last 4 days of dialysis. He denies any fever, chills or shortness of breath. He still makes urine. - Related Data Home Medications Medication Instructions Recorded Confirmed Last Taken Doxazosin Mesylate [Cardura] 2 mg PO DAILY 08/20/21 08/20/21 Unknown Furosemide [Lasix TAB] 80 mg PO QDAY 08/20/21 08/20/21 Unknown Sertraline [Zoloft] 50 mg PO QDAY 08/20/21 08/20/21 Unknown Torsemide [Demadex] 20 mg PO QDAY 08/20/21 08/20/21 Unknown allopurinoL [Zyloprim] 100 mg PO QDAY 08/20/21 08/20/21 Unknown glipiZIDE [Glipizide ER] 2.5 mg PO QDAY 08/20/21 08/20/21 Unknown Previous Rx's Medication Instructions Recorded Last Taken Type Apixaban [Eliquis] 2.5 mg PO Q12HR #60 tablet 08/29/21 Unknown Rx Aspirin EC [Halfprin EC] 81 mg PO QDAY #30 tablet 08/29/21 Unknown Rx AtorvaSTATin [Lipitor] 40 mg PO QHS #30 08/29/21 Unknown Rx Clopidogrel [Plavix] 75 mg PO QDAY #30 tablet 08/29/21 Unknown Rx Furosemide [Lasix TAB] 40 mg PO 0600,1800 #60 tablet 08/29/21 Unknown Rx ISOSORBIDE MONOnitrate [Imdur ER] 30 mg PO QDAY #30 tablet 08/29/21 Unknown Rx NIFEdipine XL [Procardia Xl] 60 mg PO Q12HR #60 tablet 08/29/21 Unknown Rx carvediloL [Coreg] 25 mg PO BID #60 tablet 08/29/21 Unknown Rx hydrALAZINE [Apresoline TAB] 100 mg PO Q8HR #90 tab 08/29/21 Unknown Rx rOPINIRole [Requip] 0.25 mg PO QHS #30 tablet 08/29/21 Unknown Rx Apixaban [Eliquis] 5 mg PO Q12HR tablet 09/18/21 Unknown Rx Allergies Allergy/AdvReac Type Severity Reaction Status Date / Time lisinopril Allergy Coughing Verified 10/01/21 10:39 ED Review of Systems ROS: Stated complaint: MISSED DIALYSIS FOR 4 DAYS Other details as noted in HPI Constitutional: weakness, other (Fatigue) Respiratory: denies: cough, shortness of breath, wheezing Cardiovascular: denies: chest pain, palpitations Gastrointestinal: denies: abdominal pain, nausea, diarrhea Genitourinary: denies: urgency, dysuria Musculoskeletal: denies: back pain, joint swelling, arthralgia Skin: denies: rash, lesions Neurological: denies: headache, weakness, paresthesias Psychiatric: denies: anxiety, depression ED Past Medical Hx - Past Medical History Hx Hypertension: Yes Hx Congestive Heart Failure: Yes Additional medical history: kidney failure - Surgical History Hx Coronary Stent: Yes Additional Surgical History: cardiac stents - Social History Smoking Status: Never Smoker Substance Use Type: None - Medications Home Medications: Home Medications Medication Instructions Recorded Confirmed Last Taken Type Doxazosin Mesylate [Cardura] 2 mg PO DAILY 08/20/21 08/20/21 Unknown History Furosemide [Lasix TAB] 80 mg PO QDAY 08/20/21 08/20/21 Unknown History Sertraline [Zoloft] 50 mg PO QDAY 08/20/21 08/20/21 Unknown History Torsemide [Demadex] 20 mg PO QDAY 08/20/21 08/20/21 Unknown History allopurinoL [Zyloprim] 100 mg PO QDAY 08/20/21 08/20/21 Unknown History glipiZIDE [Glipizide ER] 2.5 mg PO QDAY 08/20/21 08/20/21 Unknown History Apixaban [Eliquis] 2.5 mg PO Q12HR #60 tablet 08/29/21 Unknown Rx Aspirin EC [Halfprin EC] 81 mg PO QDAY #30 tablet 08/29/21 Unknown Rx AtorvaSTATin [Lipitor] 40 mg PO QHS #30 08/29/21 Unknown Rx Clopidogrel [Plavix] 75 mg PO QDAY #30 tablet 08/29/21 Unknown Rx Furosemide [Lasix TAB] 40 mg PO 0600,1800 #60 tablet 08/29/21 Unknown Rx ISOSORBIDE MONOnitrate [Imdur ER] 30 mg PO QDAY #30 tablet 08/29/21 Unknown Rx NIFEdipine XL [Procardia Xl] 60 mg PO Q12HR #60 tablet 08/29/21 Unknown Rx carvediloL [Coreg] 25 mg PO BID #60 tablet 08/29/21 Unknown Rx hydrALAZINE [Apresoline TAB] 100 mg PO Q8HR #90 tab 08/29/21 Unknown Rx rOPINIRole [Requip] 0.25 mg PO QHS #30 tablet 08/29/21 Unknown Rx Apixaban [Eliquis] 5 mg PO Q12HR tablet 09/18/21 Unknown Rx ED Physical Exam - General Limitations: No Limitations - Head Head exam: Present: atraumatic, normocephalic - Neck Neck exam: Present: normal inspection. Absent: tenderness - Respiratory Respiratory exam: Present: normal lung sounds bilaterally. Absent: respiratory distress, accessory muscle use - Cardiovascular Cardiovascular Exam: Present: regular rate, normal rhythm, normal heart sounds - GI/Abdominal GI/Abdominal exam: Present: soft. Absent: distended, tenderness - Rectal Rectal exam: Present: deferred - Neurological Exam Neurological exam: Present: alert, oriented X3 - Psychiatric Psychiatric exam: Present: normal affect, normal mood - Skin Skin exam: Present: warm, dry, intact, normal color ED Course Vital Signs 10/01/21 10/01/21 10:35 17:41 Temperature 97.7 F Pulse Rate 93 H Respiratory 18 Rate Blood Pressure 141/80 [Left] O2 Sat by Pulse 96 100 Oximetry ED Medical Decision Making - Lab Data Result diagrams: 10/01/21 11:35 10/01/21 11:35 - Medical Decision Making EKG shows atrial fibrillation with a rate of 91 bpm with occasional PVC. Patient has history of A. fib and is on Eliquis. Labs grossly unremarkable except for chronic kidney disease. Potassium is normal at 4. Chest x-ray is clear. Patient does not appear to be in any acute respiratory distress. Vital signs are stable. Will discharge home. Patient to follow-up with dialysis on Tuesday. Critical care attestation.: If time is entered above; I have spent that time in minutes in the direct care of this critically ill patient, excluding procedure time. ED Disposition Clinical Impression: Fatigue, Missed dialysis, Chronic atrial fibrillation Disposition: HOME / SELF CARE / HOMELESS Is pt being admited?: No Condition: Stable Instructions: Fatigue, Weakness, [id number] Referrals: PRIMARY CARE, [Primary Care Provider] - 3-5 Days Time of Disposition: 18:34
--- NOTE | 2021-10-02 14:09 | Electrocardiograph Report ---
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
== END 2021-10-01 18:58 | disposition home or self-care (01) ==
LOC: ED 09:58
DX: R53.83 Other fatigue (principal); I48.20 Chronic atrial fibrillation, unspecified; I13.0 Hypertensive heart and chronic kidney disease with heart failure and stage 1 through stage 4 chronic kidney disease, or unspecified chronic kidney disease; N18.9 Chronic kidney disease, unspecified; I50.9 Heart failure, unspecified; Z91.09 Other allergy status, other than to drugs and biological substances; Z79.899 Other long term (current) drug therapy
CPT/HCPCS: 36415; 71046; 80053; 85025; 85610; 85730; 93005; 99283

== ENCOUNTER 2021-12-01 15:27 | Emergency (ER) | payer OTHER, MEDICARE ==
[2021-12-01] MEDS ORDERED: dilTIAZem 50 MG/10 ML INJ IV ONE ×2 (17:50→18:55)
--- NOTE | 2021-12-01 18:23 | XRay Report ---
CHEST 1 VIEW 12/01/2021 5:10 PM INDICATION / CLINICAL INFORMATION: tachycardia. COMPARISON: 10/01/2021 FINDINGS: SUPPORT DEVICES: Permacath appears unchanged HEART / MEDIASTINUM: No significant abnormality. LUNGS / PLEURA: There is mild increase in interstitial markings in the lung bases and there is mild v enous congestion.. No pneumothorax. ADDITIONAL FINDINGS: No significant additional findings. IMPRESSION: 1. There is mild venous congestion. There is mild increase in interstitial markings in the lower lung zones likely representing edema. Signer Name: Tony Live MD Signed: 12/01/2021 6:19 PM Workstation Name: [id number]
--- NOTE | 2021-12-01 18:28 | Emergency Department Report ---
ED General Adult HPI - General Chief complaint: Dyspnea/Respdistress Stated complaint: SOB Time Seen by Provider: 12/01/21 17:50 Source: patient, EMS Mode of arrival: Stretcher Limitations: No Limitations - History of Present Illness Initial comments: The patient presents to the hospital total via EMS from dialysis for shortness of breath. Patient also complains of having palpitations. Patient states that he was almost finished with dialysis when the symptoms occurred. He denies any chest pain, abdominal pain, headache. -: Sudden Severity scale (0 -10): 0 Consistency: constant Improves with: none Worsens with: none Associated Symptoms: denies other symptoms Treatments Prior to Arrival: none - Related Data Home Medications Medication Instructions Recorded Confirmed Last Taken Doxazosin Mesylate [Cardura] 2 mg PO DAILY 08/20/21 08/20/21 Unknown Furosemide [Lasix TAB] 80 mg PO QDAY 08/20/21 08/20/21 Unknown Sertraline [Zoloft] 50 mg PO QDAY 08/20/21 08/20/21 Unknown Torsemide [Demadex] 20 mg PO QDAY 08/20/21 08/20/21 Unknown allopurinoL [Zyloprim] 100 mg PO QDAY 08/20/21 08/20/21 Unknown glipiZIDE [Glipizide ER] 2.5 mg PO QDAY 08/20/21 08/20/21 Unknown Previous Rx's Medication Instructions Recorded Last Taken Type Apixaban [Eliquis] 2.5 mg PO Q12HR #60 tablet 08/29/21 Unknown Rx Aspirin EC [Halfprin EC] 81 mg PO QDAY #30 tablet 08/29/21 Unknown Rx AtorvaSTATin [Lipitor] 40 mg PO QHS #30 08/29/21 Unknown Rx Clopidogrel [Plavix] 75 mg PO QDAY #30 tablet 08/29/21 Unknown Rx Furosemide [Lasix TAB] 40 mg PO 0600,1800 #60 tablet 08/29/21 Unknown Rx ISOSORBIDE MONOnitrate [Imdur ER] 30 mg PO QDAY #30 tablet 08/29/21 Unknown Rx NIFEdipine XL [Procardia Xl] 60 mg PO Q12HR #60 tablet 08/29/21 Unknown Rx carvediloL [Coreg] 25 mg PO BID #60 tablet 08/29/21 Unknown Rx hydrALAZINE [Apresoline TAB] 100 mg PO Q8HR #90 tab 08/29/21 Unknown Rx rOPINIRole [Requip] 0.25 mg PO QHS #30 tablet 08/29/21 Unknown Rx Apixaban [Eliquis] 5 mg PO Q12HR tablet 09/18/21 Unknown Rx Allergies Allergy/AdvReac Type Severity Reaction Status Date / Time lisinopril Allergy Coughing Verified 12/01/21 15:36 ED Review of Systems ROS: Stated complaint: SOB Other details as noted in HPI Comment: All other systems reviewed and negative Constitutional: denies: chills, fever Eyes: denies: eye pain, eye discharge, vision change ENT: denies: ear pain, throat pain Respiratory: shortness of breath. denies: cough, wheezing Cardiovascular: denies: chest pain, palpitations Endocrine: no symptoms reported Gastrointestinal: denies: abdominal pain, nausea, diarrhea Genitourinary: denies: urgency, dysuria Musculoskeletal: denies: back pain, joint swelling, arthralgia Skin: denies: rash, lesions Neurological: denies: headache, weakness, paresthesias Psychiatric: denies: anxiety, depression Hematological/Lymphatic: denies: easy bleeding, easy bruising ED Past Medical Hx - Past Medical History Hx Hypertension: Yes Hx Congestive Heart Failure: Yes Additional medical history: kidney failure - Surgical History Hx Coronary Stent: Yes Additional Surgical History: cardiac stents - Social History Smoking Status: Never Smoker Substance Use Type: None - Medications Home Medications: Home Medications Medication Instructions Recorded Confirmed Last Taken Type Doxazosin Mesylate [Cardura] 2 mg PO DAILY 08/20/21 08/20/21 Unknown History Furosemide [Lasix TAB] 80 mg PO QDAY 08/20/21 08/20/21 Unknown History Sertraline [Zoloft] 50 mg PO QDAY 08/20/21 08/20/21 Unknown History Torsemide [Demadex] 20 mg PO QDAY 08/20/21 08/20/21 Unknown History allopurinoL [Zyloprim] 100 mg PO QDAY 08/20/21 08/20/21 Unknown History glipiZIDE [Glipizide ER] 2.5 mg PO QDAY 08/20/21 08/20/21 Unknown History Apixaban [Eliquis] 2.5 mg PO Q12HR #60 tablet 08/29/21 Unknown Rx Aspirin EC [Halfprin EC] 81 mg PO QDAY #30 tablet 08/29/21 Unknown Rx AtorvaSTATin [Lipitor] 40 mg PO QHS #30 08/29/21 Unknown Rx Clopidogrel [Plavix] 75 mg PO QDAY #30 tablet 08/29/21 Unknown Rx Furosemide [Lasix TAB] 40 mg PO 0600,1800 #60 tablet 08/29/21 Unknown Rx ISOSORBIDE MONOnitrate [Imdur ER] 30 mg PO QDAY #30 tablet 08/29/21 Unknown Rx NIFEdipine XL [Procardia Xl] 60 mg PO Q12HR #60 tablet 08/29/21 Unknown Rx carvediloL [Coreg] 25 mg PO BID #60 tablet 08/29/21 Unknown Rx hydrALAZINE [Apresoline TAB] 100 mg PO Q8HR #90 tab 08/29/21 Unknown Rx rOPINIRole [Requip] 0.25 mg PO QHS #30 tablet 08/29/21 Unknown Rx Apixaban [Eliquis] 5 mg PO Q12HR tablet 09/18/21 Unknown Rx ED Physical Exam - General Limitations: No Limitations General appearance: alert, in no apparent distress - Head Head exam: Present: atraumatic, normocephalic - Eye Eye exam: Present: normal appearance, PERRL, EOMI - ENT ENT exam: Present: mucous membranes moist - Neck Neck exam: Present: normal inspection - Respiratory Respiratory exam: Present: normal lung sounds bilaterally. Absent: respiratory distress - Cardiovascular Cardiovascular Exam: Present: normal rhythm, tachycardia, irregular rhythm, other (Irregularly irregular). Absent: systolic murmur, diastolic murmur, rubs, gallop - GI/Abdominal GI/Abdominal exam: Present: soft, normal bowel sounds - Rectal Rectal exam: Present: deferred - Extremities Exam Extremities exam: Present: normal inspection - Back Exam Back exam: Present: normal inspection - Neurological Exam Neurological exam: Present: alert, oriented X3 - Psychiatric Psychiatric exam: Present: normal affect, normal mood - Skin Skin exam: Present: warm, dry, intact, normal color. Absent: rash ED Course Vital Signs 12/01/21 12/01/21 12/01/21 15:34 17:18 17:31 Temperature Pulse Rate 135 H 109 H 110 H Respiratory 16 28 H Rate Blood Pressure 120/75 Blood Pressure 103/70 [Left] O2 Sat by Pulse 97 100 94 Oximetry 12/01/21 12/01/21 12/01/21 18:06 18:43 18:44 Temperature 99.1 F Pulse Rate 113 H Respiratory Rate Blood Pressure Blood Pressure [Left] O2 Sat by Pulse 97 Oximetry ED Medical Decision Making - Lab Data Result diagrams: 12/01/21 18:14 12/01/21 18:14 - EKG Data -: EKG Interpreted by Me Rate: tachycardia - EKG Data Interpretation: other (Irregularly irregular) - Medical Decision Making Patient received 15 mg of diltiazem with his heart rate decreasing to 97 Critical care attestation.: If time is entered above; I have spent that time in minutes in the direct care of this critically ill patient, excluding procedure time. ED Disposition Clinical Impression: A-fib Disposition: 01 HOME / SELF CARE / HOMELESS Is pt being admited?: No Does the pt Need Aspirin: No Condition: Stable Instructions: Atrial Fibrillation Additional Instructions: return if worse Time of Disposition: 20:16
[2021-12-01 19:11] LABS: Basophils # (Auto) 0.1 K/mm3 (0.0-0.1); Eosinophils # (Auto) 0.2 K/mm3 (0.0-0.4); Eosinophils % (Auto) 2.8 % (0.0-4.3); Hematocrit 36.2 % (35.5-45.6); Hemoglobin 11.8 gm/dl (11.8-15.2); Lymphocytes % (Auto) 16.8 % (13.4-35.0); Mean Corpuscular HGB Conc 33 % (32-34); Mean Corpuscular Volume 104 fl (84-94); Monocytes # (Auto) 0.5 K/mm3 (0.0-0.8); Platelet Count 226 K/mm3 (140-440); Red Blood Count 3.49 M/mm3 (3.65-5.03); Red Cell Distribution Width 17.4 % (13.2-15.2)
[2021-12-01 19:59] LABS: Albumin 4.3 g/dL (3.9-5); Calcium 8.3 mg/dL (8.4-10.2)
[2021-12-01 22:42] VITALS: BP 135/79
--- NOTE | 2021-12-02 09:32 | Electrocardiograph Report ---
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
== END 2021-12-01 22:46 | disposition home or self-care (01) ==
LOC: ED 15:27
DX: I48.91 Unspecified atrial fibrillation (principal); Z88.8 Allergy status to other drugs, medicaments and biological substances; I10 Essential (primary) hypertension
CPT/HCPCS: 36415; 71045; 80053; 85025; 93005; 96374; 99284; J3490